=== PATIENT | male | born 1940 | race Caucasian/White ===

== ENCOUNTER 2017-01-22 18:27 | Inpatient (IN) ==
[~2017-01-22 18:27] MED LIST: *HR* Etomidate 20 MG/10 ML AMPUL IVP ONE; *HR* Rocuronium Bromide 100 MG/10 ML VIAL IVC ONE
[2017-01-22] MEDS ORDERED: 0.9 % Sodium Chloride 1,000 ML ONE ×2 (18:41→19:38)
--- NOTE | 2017-01-22 18:46 | Emergency Department Note ---
Disposition Clinical Impression: Respiratory distress Disposition: Still a Patient Forms: ED Satisfaction Letter General Adult HPI - General Chief complaint: ED Shortness of Breath/Dyspnea Stated complaint: Resp distress Time Seen by Provider: 01/22/17 18:38 Source: EMS Limitations: no limitations - History of Present Illness Pain Scale: 0 Past Medical History - Past Medical History Medical history: Reports: non-contributory Psychiatric history: Reports: no psych history - Social History Smoking Status: Unknown if ever smoked Alcohol use: Reports: unknown Drug use: Reports: unknown Physical Exam - General Limitations: no limitations General appearance: lethargic Course Vital Signs Temperature 98.7 F 01/22/17 18:29 Pulse Rate 169 01/22/17 18:29 Respiratory Rate 24 01/22/17 18:29 Blood Pressure 151/90 01/22/17 18:29 O2 Sat by Pulse Oximetry 81 01/22/17 18:29 Temperature 98.7 F 01/22/17 18:29 Pulse Rate 160 01/22/17 18:37 Respiratory Rate 14 01/22/17 18:37 Blood Pressure 104/82 01/22/17 18:37 O2 Sat by Pulse Oximetry 93 01/22/17 18:37 Oxygen Delivery Oxygen Delivery Ventilator Procedures - Intubation Time out performed: No sedative: Etomidate Mg Given: 20 paralytic: Rocuronium Mg Given: 100 Laryngoscope: Chris ET Tube Size: 7.5 ET Tube Uncuffed: No Tube Secured Depth (cm): 22 Tube Secured Location: lips Tube Placement Confirmation: visualized tube passing through cords, equal breath sounds bilaterally, no breath sounds over epigastrium, confirmation by capnometry Patient Tolerated Procedure: well Intubation Complications: other (Patient did have food overlying the epiglottis that was removed with suction.)
[2017-01-22] MEDS ORDERED: Propofol 500 MG/50 ML INFUS..BTL ONE ×2 (18:49→20:38)
[2017-01-22] MEDS ORDERED: Vancomycin 1,000 MG VIAL IVPB ONE (18:57)
[2017-01-22] MEDS ORDERED: Piperacillin/Tazobactam 3.375 GM in D5% in Water (Mini-Bag+) 100 ML IVPB ONE (18:57)
[2017-01-22 19:01] LABS: ABG Base Excess 1.3 mEq/L (-2.0 to 3.0); ABG HCO3 31.4 mEQ/L (21-27); ABG Oxygen Saturation 99 % (95-98); ABG PH 7.23 pH Units (7.32-7.45); ABG PO2 168 mmHg (85-104); ABG TCO2 33.7 mEq/L (20-26); Blood Gas FiO2 100 %
--- NOTE | 2017-01-22 19:01 | Emergency Department Note ---
Disposition Clinical Impression: Respiratory distress Aspiration pneumonia Qualifiers: Aspiration pneumonia type: due to regurgitated food Laterality: bilateral Lung location: unspecified part of lung Qualified Code(s): J69.0 - Pneumonitis due to inhalation of food and vomit Disposition: Admitted As Inpatient Condition: Critical Forms: ED Satisfaction Letter Time of Disposition: 19:48 SOB HPI - General Chief Complaint: ED Shortness of Breath/Dyspnea Stated Complaint: Resp distress Time Seen by Provider: 01/22/17 18:38 Source: EMS Limitations: no limitations Nursing Notes Reviewed: Yes Vital Signs Reviewed: Yes - History of Present Illness 76-year-old who was eating and apparently choked and became short of breath. [facility] were [facility]ging him. His pulse ox was in the 70s on arrival with the respiratory distressaccess had been obtained. On arrival of the patient was 2 large bore IVs were started patient was given etomidate and rocuronium was intubated please see the intubation note. There was a large piece of chicken removed from the upper airway. The tube was passed without difficulty with good CO2 detector change good breath sounds bilaterally pulse ox up into the high 90s. 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 Context: choking/aspiration, other (Aspiration) Severity: severe Consistency/Duration: constant Improves with: nothing Worsens with: nothing Treatment prior to arrival: oxygen Cough Frequency: Continuous - Related Data Allergies Allergy/AdvReac Type Severity Reaction Status Date / Time No Known Allergies Allergy Verified 01/22/17 18:54 Limitations: ROS unobtainable due to patients medical condition Past Medical History - Past Medical History Medical history: Reports: non-contributory Psychiatric history: Reports: no psych history - Social History Smoking Status: Unknown if ever smoked Alcohol use: Reports: unknown Drug use: Reports: unknown Physical Exam - General Limitations: no limitations, altered mental status General appearance: lethargic, other (In severe respiratory distress on arrival. ) - Head Head exam: atraumatic, normocephalic, normal inspection - Eye Eye exam: Present: normal appearance, PERRL, EOMI - ENT ENT exam: normal exam, normal oropharynx, mucous membranes moist - Neck Neck exam: Present: normal inspection, full ROM, trachea midline - Chest Chest inspection: Present: normal inspection, symmetric chest wall rise - Respiratory Respiratory exam: Present: normal lung sounds bilaterally - Cardiovascular Cardiovascular exam: Present: tachycardia, irregular rhythm, normal heart sounds - Abdominal Exam Abdominal exam: Present: soft, Non-Tender. Absent: tenderness, distention, guarding, rebound, rigidity - Extremities Exam Extremities exam: Present: normal inspection, full ROM. Absent: tenderness, pedal edema - Expanded Lower Extremity Exam Neurovascular/Tendon exam: Absent: motor deficit, sensory deficit, tendon deficit Gait: not tested/not observed - Back Exam Back exam: Present: normal inspection - Neurological Exam Neurological exam: Present: other (Unresponsive) Course - Reevaluation(s) Reevaluation #1: 76-year-old who was at the [facility] eating and apparently aspirated. He was being bagged on arrival and that intubation in the piece of chicken in his vocal cords. That was removed he was intubated. Chest x-ray does show infiltrates. Patient was given Zosyn and vancomycin. Patient was given 3 L of normal saline. Time: 19:49 - Consultations Consultation #1: Discussed with Penny Crisostomo nurse practitioner admit. Time: 19:49 Vital Signs Temperature 98.7 F 01/22/17 18:29 Pulse Rate 169 01/22/17 18:29 Respiratory Rate 24 01/22/17 18:29 Blood Pressure 151/90 01/22/17 18:29 O2 Sat by Pulse Oximetry 81 01/22/17 18:29 Temperature 98.7 F 01/22/17 18:29 Pulse Rate 129 01/22/17 19:23 Respiratory Rate 12 01/22/17 19:23 Blood Pressure 103/70 01/22/17 19:23 O2 Sat by Pulse Oximetry 97 01/22/17 19:23 Oxygen Delivery Oxygen Delivery Ventilator Shortness of Breath/Dyspnea - Lab Data Lab results reviewed: Yes I reviewed the patient's lab results. Result diagrams: 01/22/17 18:48 01/22/17 19:15 Lab Results 01/22/17 01/22/17 01/22/17 Range/Units 18:48 18:48 18:48 WBC 14.4 H (4.3-11.1) K/mcL RBC 5.33 (4.19-5.50) M/mcL Hgb 15.4 (12.9-16.9) g/dL Hct 50.4 H (37.5-50.1) % MCV 94.6 (83.0-100.0) fL MCH 28.9 (28.0-33.3) pg MCHC 30.6 L (31.6-35.5) g/dL RDW 15.4 H (11.5-14.5) % Plt Count 298 (140-400) K/mcL MPV 10.9 (9.4-12.4) fL Immature Gran % 0.8 (0-4) % Seg Neutrophils % 60.2 % Lymphocytes % 31.7 % Monocytes % 5.5 % Eosinophils % 1.5 % Basophils % 0.3 % Neutrophils # 8.7 (1.6-8.9) K/mcL Lymphocytes # 4.6 (0.6-4.6) K/mcL Monocytes # 0.8 (0.0-1.3) K/mcL Eosinophils # 0.2 (0.0-0.6) K/mcL Basophils # 0.1 (0.0-0.2) K/mcL PT 12.6 H (9.4-12.1) Seconds INR 1.2 APTT 36.1 H (26.0-36.0) Seconds ABG pH (7.32-7.45) pH Units ABG pCO2 (35-45) mmHg ABG pO2 (85-104) mmHg ABG HCO3 (21-27) mEQ/L ABG Total CO2 (20-26) mEq/L ABG O2 Saturation (95-98) % ABG Base Excess (-2.0 to 3.0) mEq/L Blood Gas Modality Inspired O2 % Sodium (136-145) mEq/L Potassium (3.5-4.5) mEq/L Chloride (98-109) mEq/L Carbon Dioxide (19-29) mEq/L BUN (8-26) mg/dL Creatinine (0.72-1.25) mg/dL Est GFR ( Amer) (> 60) Est GFR (Non-Af Amer) (> 60) BUN/Creatinine Ratio (6-26) Glucose (70-99) mg/dL Calculated Osmolality (280-300) Lactic Acid (0.5-2.2) mmol/L Calcium (8.6-10.8) mg/dL Troponin I 0.03 (0-0.03) ng/mL B-Natriuretic Peptide (0-100) pg/mL 01/22/17 01/22/17 01/22/17 Range/Units 18:48 18:51 19:15 WBC (4.3-11.1) K/mcL RBC (4.19-5.50) M/mcL Hgb (12.9-16.9) g/dL Hct (37.5-50.1) % MCV (83.0-100.0) fL MCH (28.0-33.3) pg MCHC (31.6-35.5) g/dL RDW (11.5-14.5) % Plt Count (140-400) K/mcL MPV (9.4-12.4) fL Immature Gran % (0-4) % Seg Neutrophils % % Lymphocytes % % Monocytes % % Eosinophils % % Basophils % % Neutrophils # (1.6-8.9) K/mcL Lymphocytes # (0.6-4.6) K/mcL Monocytes # (0.0-1.3) K/mcL Eosinophils # (0.0-0.6) K/mcL Basophils # (0.0-0.2) K/mcL PT (9.4-12.1) Seconds INR APTT (26.0-36.0) Seconds ABG pH 7.23 L (7.32-7.45) pH Units ABG pCO2 75 H* (35-45) mmHg ABG pO2 168 H (85-104) mmHg ABG HCO3 31.4 H (21-27) mEQ/L ABG Total CO2 33.7 H (20-26) mEq/L ABG O2 Saturation 99 H (95-98) % ABG Base Excess 1.3 (-2.0 to 3.0) mEq/L Blood Gas Modality VCT Inspired O2 100 % Sodium 146 H (136-145) mEq/L Potassium 4.4 (3.5-4.5) mEq/L Chloride 107 (98-109) mEq/L Carbon Dioxide 25 (19-29) mEq/L BUN 19 (8-26) mg/dL Creatinine 1.00 (0.72-1.25) mg/dL Est GFR ( Amer) > 60 (> 60) Est GFR (Non-Af Amer) > 60 (> 60) BUN/Creatinine Ratio 19 (6-26) Glucose 184 H (70-99) mg/dL Calculated Osmolality 309 H (280-300) Lactic Acid (0.5-2.2) mmol/L Calcium 8.8 (8.6-10.8) mg/dL Troponin I (0-0.03) ng/mL B-Natriuretic Peptide 124 H (0-100) pg/mL 01/22/17 Range/Units 19:15 WBC (4.3-11.1) K/mcL RBC (4.19-5.50) M/mcL Hgb (12.9-16.9) g/dL Hct (37.5-50.1) % MCV (83.0-100.0) fL MCH (28.0-33.3) pg MCHC (31.6-35.5) g/dL RDW (11.5-14.5) % Plt Count (140-400) K/mcL MPV (9.4-12.4) fL Immature Gran % (0-4) % Seg Neutrophils % % Lymphocytes % % Monocytes % % Eosinophils % % Basophils % % Neutrophils # (1.6-8.9) K/mcL Lymphocytes # (0.6-4.6) K/mcL Monocytes # (0.0-1.3) K/mcL Eosinophils # (0.0-0.6) K/mcL Basophils # (0.0-0.2) K/mcL PT (9.4-12.1) Seconds INR APTT (26.0-36.0) Seconds ABG pH (7.32-7.45) pH Units ABG pCO2 (35-45) mmHg ABG pO2 (85-104) mmHg ABG HCO3 (21-27) mEQ/L ABG Total CO2 (20-26) mEq/L ABG O2 Saturation (95-98) % ABG Base Excess (-2.0 to 3.0) mEq/L Blood Gas Modality Inspired O2 % Sodium (136-145) mEq/L Potassium (3.5-4.5) mEq/L Chloride (98-109) mEq/L Carbon Dioxide (19-29) mEq/L BUN (8-26) mg/dL Creatinine (0.72-1.25) mg/dL Est GFR ( Amer) (> 60) Est GFR (Non-Af Amer) (> 60) BUN/Creatinine Ratio (6-26) Glucose (70-99) mg/dL Calculated Osmolality (280-300) Lactic Acid 2.4 H (0.5-2.2) mmol/L Calcium (8.6-10.8) mg/dL Troponin I (0-0.03) ng/mL B-Natriuretic Peptide (0-100) pg/mL - Radiology Data Radiology results reviewed: Yes I reviewed the patient's radiology results. Chest X-Ray 01/22/17 18:44 IMPRESSION: Satisfactory position of endotracheal tube. Right perihilar and left basilar infiltrate. D/ / Reji Moralez MD / Reji Moralez MD Interpreting Provider: Reji Moralez MD - EKG Data EKG attestation: Yes I reviewed and interpreted this EKG. Rate: Reports: tachycardia Rhythm: Reports: A.Fib Interpretation: Reports: other (A. fib RVR) Critical Care Time Critical Care Time: Yes Total Critical Care Time: 90 Attestation: The high probability of a clinically significant, sudden or life threatening deterioration of the [cardiovascular, respiratory] system(s) required my full and direct attention, intervention and personal management. The aggregate critical care time was [90] minutes. This time is in addition to time spent performing reported procedures but includes the following: [x] Data Review and interpretation [x] Patient assessment and monitoring of vital signs [x] Documentation [x] Medication orders and management
[2017-01-22 19:03] LABS: ABG PCO2 75 mmHg (35-45)
[2017-01-22 19:06] LABS: Basophils # 0.1 K/mcL (0.0-0.2); Basophils % 0.3 %; Eosinophils # 0.2 K/mcL (0.0-0.6); Eosinophils % 1.5 %; Hematocrit 50.4 % (37.5-50.1); Hemoglobin 15.4 g/dL (12.9-16.9); Immature Granulocytes % 0.8 % (0-4); Lymphocytes # 4.6 K/mcL (0.6-4.6); Lymphocytes % 31.7 %; Mean Corpuscular HGB Conc 30.6 g/dL (31.6-35.5); Mean Corpuscular Hemoglobin 28.9 pg (28.0-33.3); Mean Corpuscular Volume 94.6 fL (83.0-100.0); Mean Platelet Volume 10.9 fL (9.4-12.4); Monocytes # 0.8 K/mcL (0.0-1.3); Monocytes % 5.5 %; Neutrophils # 8.7 K/mcL (1.6-8.9); Platelet Count 298 K/mcL (140-400); Red Blood Count 5.33 M/mcL (4.19-5.50); Red Cell Distribution Width 15.4 % (11.5-14.5); Segmented Neutrophils % 60.2 %
[2017-01-22 19:15] LABS: INR 1.2; Prothrombin Time 12.6 Seconds (9.4-12.1)
[2017-01-22 19:18] LABS: Activated Partial Thrombo Time 36.1 Seconds (26.0-36.0)
[2017-01-22 19:35] LABS: BUN/Creatinine Ratio 19 (6-26); Blood Urea Nitrogen 19 mg/dL (8-26); Calcium 8.8 mg/dL (8.6-10.8); Carbon Dioxide 25 mEq/L (19-29); Chloride 107 mEq/L (98-109); Glucose 184 mg/dL (70-99); Osmolality,Calculated 309 (280-300); Potassium 4.4 mEq/L (3.5-4.5); Sodium 146 mEq/L (136-145); eGFR For African Americans > 60 (> 60); eGFR For Non-African Americans > 60 (> 60)
[2017-01-22] MEDS ORDERED: 0.9 % Sodium Chloride 1,000 ML IVC ONE ×2 (19:39→20:01)
[2017-01-22] MEDS ORDERED: Naloxone 0.4 MG/ML INJ IVP PRN (22:10)
[2017-01-22] MEDS ORDERED: Lacri-Lube 3.5 GM TUBE BOTH EYES PRN (22:14)
[2017-01-22] MEDS ORDERED: Nitroglycerin 0.4 MG TAB.SUBL SL PRN (22:18)
--- NOTE | 2017-01-22 22:36 | Internal Med History&Physical ---
Date of Encounter: 01/22/17 Time of Encounter: 22:22 Assessment and Plan (1) Acute respiratory failure Current visit: Yes Status: Acute Likely secondary to aspiration of food / pneumonia. Patient required intubation and mechanical ventilation. Pulmonary consultation for further advice. Qualifiers: Respiratory failure complication: hypoxia Qualified Code(s): J96.01 - Acute respiratory failure with hypoxia (2) Atrial fibrillation with RVR Current visit: Yes Status: Acute Patient had atrial fibrillation with RVR in the ER. Possibly due to stress response from acute respiratory failure. RVR is improved now. (3) Aspiration into lower respiratory tract Current visit: Yes Status: Acute Patient apparently aspirated food bolus/chicken, that caused acute respiratory distress. food was suctioned out by the resp therapist after intubation Qualifiers: Encounter type: initial encounter Qualified Code(s): T17.800A - Unspecified foreign body in other parts of respiratory tract causing asphyxiation, initial encounter (4) Pneumonia Current visit: Yes Status: Acute Possible community-acquired pneumonia. It is too early because of aspiration pneumonia. However will treat with unasyn, to cover for anerobes. Request for pulmonary consultation, for further advice and titration of antibiotics Qualifiers: Pneumonia type: due to unspecified organism Laterality: left Lung location: lower lobe of lung Qualified Code(s): J18.1 - Lobar pneumonia, unspecified organism (5) Sepsis Current visit: Yes Status: Acute Possibly due to pneumonia. Treat with IV fluids and antibiotics Qualifiers: Sepsis type: sepsis due to unspecified organism Qualified Code(s): A41.9 - Sepsis, unspecified organism (6) Chronic anticoagulation Current visit: Yes Status: Acute Pt is on apixaban for A fib - continue. No need for other DVT prophylaxis Internal Medicine - H&P: HPI Chief complaint: Respiratory distress Admitted From: Emergency Dept Plans for Post Hospital Care: Transfer [facility] History of present illness: Mr. Pastrana is a 76 year old male With past medical history significant for COPD, CAD, CHF, CKD stage 3, atrial fibrillation/flutter on chronic anti-coagulation with apixaban, hypertension, abdominal aortic aneurysm, depression, schizoaffective disorder, hypercholesterolemia, multiple pulmonary nodules, prostate cancer. He was a resident at the [facility] and per the records from the facility - patient apparently vomited and appeared to choke on his vomitus and he went into respiratory failure. His initial pulse ox was recorded to be 50% on room air and improved to 74% on the 100% nonrebreather mask. He was in respiratory distress with tachypnea and tachycardia. He was transferred to emergency department at [facility], where he was intubated. During intubation, piece of chicken was noted on his vocal cords, which was removed. Chest x-ray reported right perihilar and left basilar infiltrate. Patient was given Zosyn and vancomycin and 3 L of normal saline. He is admitted to the ICU for further management. Review of systems, past medical history, social history, family history could not be reviewed with the patient as he is intubated at this time. Pt is critically ill and critical care time in organizing care in the ICU is about 60 minutes. Past Med Surg Social Fam HX - Past Medical History Medical history: non-contributory Psychiatric history: no psych history - Social History Smoking Status: Unknown if ever smoked Alcohol use: unknown Drug use: unknown - Family History Mother History Unknown: Yes Father History Unknown: Yes Internal Medicine - H&P: Meds Acetaminophen [Acetaminophen ER] 650 mg PO TID 01/22/17 [History] Apixaban [Eliquis] 5 mg PO BID 01/22/17 [History] Aspirin Enteric Coated [Aspirin EC] 81 mg PO DAILY 01/22/17 [History] Bisacodyl [Dulcolax] 10 mg RC DAILY PRN 01/22/17 [History] Budesonide/Formoterol 80/4.5 [Symbicort 80/4.5] 2 puff IH BIDR 01/22/17 [ History] Divalproex Sodium [Depakote] 250 mg PO DAILY 01/22/17 [History] Docusate Sodium [Colace] 100 mg PO BID 01/22/17 [History] Finasteride [Proscar] 5 mg PO DAILY 01/22/17 [History] Furosemide [Lasix] 40 mg PO BID 01/22/17 [History] Guaifenesin [Tab Tussin] 400 mg PO TID PRN 01/22/17 [History] Ipratropium/Albuterol Neb [Duoneb] 3 ml IH Q4HR 01/22/17 [History] Lisinopril 2.5 mg PO HS 01/22/17 [History] Metoprolol Succinate 150 mg PO DAILY 01/22/17 [History] Mineral Oil/Petrolatum,White [Eucerin Creme] 1 appl TP BID PRN 01/22/17 [History ] Multivitamin with Minerals [One-A-Day Maximum Formula] 1 tab PO DAILY 01/22/17 [ History] Nitroglycerin [Nitrostat] 0.4 mg SL AD PRN 01/22/17 [History] Nystatin POWDER [Nystop] 1 appl TP Q4H PRN 01/22/17 [History] OLANZapine [Zyprexa] 5 mg PO HS 01/22/17 [History] Ondansetron HCl [Zofran] 4 mg PO Q6H PRN 01/22/17 [History] Polyethylene Glycol 3350 [Smoothlax] 17 gm PO DAILY 01/22/17 [History] Polyvinyl Alcohol [Artificial Tears] 2 drop OP QID PRN 01/22/17 [History] Potassium Chloride [K-Tab ER] 20 meq PO DAILY MDD WITH LASIX 01/22/17 [History] Ranitidine HCl [Acid Speech And Drama Teacher] 150 mg PO BID 01/22/17 [History] Sennosides [Senna] 17.2 mg PO DAILY 01/22/17 [History] TraZODone 25 mg PO HS 01/22/17 [History] Ursodiol 300 mg PO BID 01/22/17 [History] Allergies No Known Allergies Allergy (Verified 01/22/17 18:54) ROS unobtainable: due to endotracheal tube - Constitutional Vitals: Temp Pulse Resp BP Pulse Ox 99.1 F 87 12 88/66 99 01/22/17 21:21 01/22/17 22:00 01/22/17 22:00 01/22/17 22:00 01/22/17 22:00 Exam: General: Sedated and intubated. Obese HEENT: Endotracheal tube in place Neck: No obvious neck swellings Lungs: Bilateral air entry present. Clear to auscultation Cardiac: Irregular rhythm. No significant murmurs Abdomen: Obese, non tender. Bowel sounds present Genitourinary: Mosley catheter present Neurological: Sedated and intubated. Psych: Sedated and intubated. Extremities: leg edema present Skin: No generalized rash Internal Med - H&P Results - Labs CBC & Chem 7: 01/24/17 03:09 01/24/17 03:09 - EKG Data -: EKG Interpreted by Myself - EKG Data EKG comments: Atrial fibrillation with RVR, heart rate of 160/m, RBBB 01/23/17 00:34 - Impressions ITS Impressions Chest X-Ray 01/22/17 18:44 IMPRESSION: Satisfactory position of endotracheal tube. Right perihilar and left basilar infiltrate. D/ / Reji Moralez MD / Reji Moralez MD Interpreting Provider: Reji Moralez MD
[2017-01-22 22:51] LABS: ABG Base Excess 1.3 mEq/L (-2.0 to 3.0); ABG HCO3 32.5 mEQ/L (21-27); ABG Oxygen Saturation 100 % (95-98); ABG PO2 202 mmHg (85-104); ABG TCO2 35.2 mEq/L (20-26)
[2017-01-22 22:54] LABS: Blood Gas FiO2 100 %
[2017-01-22 22:55] LABS: ABG PCO2 87 mmHg (35-45); ABG PH 7.18 pH Units (7.32-7.45)
[2017-01-22] MEDS: Ampicillin/Sulbactam 3,000 MG in 0.9 % Sodium Chloride Mini Bag 100 ML IVPB SCH (23:11)
[2017-01-22] MEDS: Lacri-Lube 3.5 GM TUBE BOTH EYES SCH (23:13)
[2017-01-23] MEDS: OLANZapine 5 MG TAB.RAPDIS PO SCH ×2 (00:38→19:48)
[2017-01-23 00:58] LABS: Hematocrit 45.3 % (37.5-50.1); Immature Granulocytes % 0.4 % (0-4); Lymphocytes % 8.9 %; Mean Corpuscular HGB Conc 29.8 g/dL (31.6-35.5); Mean Corpuscular Volume 97.4 fL (83.0-100.0); Mean Platelet Volume 11.3 fL (9.4-12.4); Platelet Count 281 K/mcL (140-400); Red Blood Count 4.65 M/mcL (4.19-5.50); Red Cell Distribution Width 15.6 % (11.5-14.5); Segmented Neutrophils % 87.2 %
[2017-01-23 00:59] LABS: Basophils % 0.1 %; Eosinophils # 0.1 K/mcL (0.0-0.6); Eosinophils % 0.5 %; Lymphocytes # 1.5 K/mcL (0.6-4.6); Monocytes # 0.5 K/mcL (0.0-1.3); Monocytes % 2.9 %; Neutrophils # 14.3 K/mcL (1.6-8.9)
[2017-01-23 01:00] LABS: Hemoglobin 13.5 g/dL (12.9-16.9)
[2017-01-23 01:12] LABS: Alanine Aminotransferase 13 Units/L (0-55); Albumin/Globulin Ratio 0.8 (1.1-2.2); Alkaline Phosphatase 67 Units/L (38-126); Aspartate Amino Transferase 20 Units/L (5-34); BUN/Creatinine Ratio 15 (6-26); Bilirubin,Total 0.4 mg/dL (0.2-1.2); Blood Urea Nitrogen 17 mg/dL (8-26); Calcium 8.5 mg/dL (8.6-10.8); Carbon Dioxide 28 mEq/L (19-29); Chloride 107 mEq/L (98-109); Globulin 3.8 g/dL (2.4-3.5); Glucose 120 mg/dL (70-99); Osmolality,Calculated 303 (280-300); Potassium 5.3 mEq/L (3.5-4.5); Sodium 145 mEq/L (136-145); Total Protein 6.8 g/dL (6.0-8.3); eGFR For African Americans > 60 (> 60); eGFR For Non-African Americans > 60 (> 60)
[2017-01-23 01:19] LABS: ABG HCO3 29.7 mEQ/L (21-27); ABG Oxygen Saturation 95 % (95-98); ABG PH 7.23 pH Units (7.32-7.45); ABG PO2 92 mmHg (85-104); ABG TCO2 31.9 mEq/L (20-26); Blood Gas FiO2 60 %
[2017-01-23 01:21] LABS: ABG PCO2 71 mmHg (35-45)
[2017-01-23] MEDS: 0.9 % Sodium Chloride 1,000 ML IVC SCH ×3 (02:26→19:49)
[2017-01-23] MEDS ORDERED: *HR* Metoprolol 5 MG/5 ML VIAL IVP ONE (03:33)
[2017-01-23] MEDS: Lacri-Lube 3.5 GM TUBE BOTH EYES SCH ×5 (03:53→19:50)
[2017-01-23 04:50] LABS: ABG Base Excess 1.7 mEq/L (-2.0 to 3.0); ABG HCO3 27.7 mEQ/L (21-27); ABG Oxygen Saturation 97 % (95-98); ABG PCO2 48 mmHg (35-45); ABG PH 7.37 pH Units (7.32-7.45); ABG PO2 93 mmHg (85-104); ABG TCO2 29.2 mEq/L (20-26)
[2017-01-23 04:51] LABS: Blood Gas FiO2 40 %
[2017-01-23] MEDS: Ampicillin/Sulbactam 3,000 MG in 0.9 % Sodium Chloride Mini Bag 100 ML IVPB SCH ×3 (05:49→19:09)
[2017-01-23] MEDS: Pantoprazole 40 MG VIAL IVP SCH (05:49)
--- NOTE | 2017-01-23 07:13 | Pulmonology Consult Note ---
<Supriya Coy M - Last Filed: 01/23/17 11:19> Date of Encounter: 01/23/17 Medications and Allergies Acetaminophen [Acetaminophen ER] 650 mg PO TID 01/22/17 [History] Apixaban [Eliquis] 5 mg PO BID 01/22/17 [History] Aspirin Enteric Coated [Aspirin EC] 81 mg PO DAILY 01/22/17 [History] Bisacodyl [Dulcolax] 10 mg RC DAILY PRN 01/22/17 [History] Budesonide/Formoterol 80/4.5 [Symbicort 80/4.5] 2 puff IH BIDR 01/22/17 [ History] Divalproex Sodium [Depakote] 250 mg PO DAILY 01/22/17 [History] Docusate Sodium [Colace] 100 mg PO BID 01/22/17 [History] Finasteride [Proscar] 5 mg PO DAILY 01/22/17 [History] Furosemide [Lasix] 40 mg PO BID 01/22/17 [History] Guaifenesin [Tab Tussin] 400 mg PO TID PRN 01/22/17 [History] Ipratropium/Albuterol Neb [Duoneb] 3 ml IH Q4HR 01/22/17 [History] Lisinopril 2.5 mg PO HS 01/22/17 [History] Metoprolol Succinate 150 mg PO DAILY 01/22/17 [History] Mineral Oil/Petrolatum,White [Eucerin Creme] 1 appl TP BID PRN 01/22/17 [History ] Multivitamin with Minerals [One-A-Day Maximum Formula] 1 tab PO DAILY 01/22/17 [ History] Nitroglycerin [Nitrostat] 0.4 mg SL AD PRN 01/22/17 [History] Nystatin POWDER [Nystop] 1 appl TP Q4H PRN 01/22/17 [History] OLANZapine [Zyprexa] 5 mg PO HS 01/22/17 [History] Ondansetron HCl [Zofran] 4 mg PO Q6H PRN 01/22/17 [History] Polyethylene Glycol 3350 [Smoothlax] 17 gm PO DAILY 01/22/17 [History] Polyvinyl Alcohol [Artificial Tears] 2 drop OP QID PRN 01/22/17 [History] Potassium Chloride [K-Tab ER] 20 meq PO DAILY MDD WITH LASIX 01/22/17 [History] Ranitidine HCl [Acid Service Crew Leader] 150 mg PO BID 01/22/17 [History] Sennosides [Senna] 17.2 mg PO DAILY 01/22/17 [History] TraZODone 25 mg PO HS 01/22/17 [History] Ursodiol 300 mg PO BID 01/22/17 [History] Allergies No Known Allergies Allergy (Verified 01/22/17 18:54) All Systems: A 10-system review of systems was performed and is negative for pertinent findings except as documented above in the HPI. Physical Examination Vital Signs: Vital Signs, Last 4 Hours Temp Pulse Resp BP Pulse Ox 01/23/17 09:30 114 16 87/61 99 01/23/17 08:30 116 16 83/66 96 01/23/17 08:13 99.0 F 01/23/17 08:07 15 91/60 96 01/23/17 07:45 111 16 107/64 96 Ventilator Settings Ventilator Settings: Ventilator Settings, Last 8 Hours Ventilator Mode VC+ Ventilator Mode VC+ Ventilator Mode VC+ Ventilator Mode VC+ Ventilator Mode VC+ Ventilator Tidal Volume 500 Setting Ventilator Tidal Volume 500 Setting Ventilator Tidal Volume 500 Setting Ventilator Tidal Volume 500 Setting Ventilator Tidal Volume 500 Setting Ventilator Respiratory Rate 16 Setting Ventilator Respiratory Rate 16 Setting Ventilator Respiratory Rate 16 Setting Ventilator Respiratory Rate 16 Setting Ventilator Respiratory Rate 16 Setting Actual Respiratory Rate 16 Actual Respiratory Rate 16 Actual Respiratory Rate 16 Actual Respiratory Rate 17 Positive End Expiratory 5 Pressure Positive End Expiratory 5 Pressure Positive End Expiratory 5 Pressure Positive End Expiratory 5 Pressure Positive End Expiratory 5 Pressure Peak Inspiratory Airway 37 Pressure Peak Inspiratory Airway 39 Pressure Peak Inspiratory Airway 34 Pressure Peak Inspiratory Airway 38 Pressure Peak Inspiratory Airway 37 Pressure Peak Inspiratory Airway 35 Pressure Results - Laboratory Findings CBC and BMP: 01/23/17 00:50 01/23/17 00:50 ABG ABG pH 7.37 pH Units (7.32-7.45) D 01/23/17 04:35 ABG pCO2 48 mmHg (35-45) H D 01/23/17 04:35 ABG pO2 93 mmHg (85-104) 01/23/17 04:35 ABG O2 Saturation 97 % (95-98) 01/23/17 04:35 PT/INR, D-dimer PT 12.6 Seconds (9.4-12.1) H 01/22/17 18:48 Abnormal lab findings: Abnormal lab results WBC 16.4 K/mcL (4.3-11.1) H 01/23/17 00:50 MCHC 29.8 g/dL (31.6-35.5) L 01/23/17 00:50 RDW 15.6 % (11.5-14.5) H 01/23/17 00:50 Neutrophils # 14.3 K/mcL (1.6-8.9) H 01/23/17 00:50 PT 12.6 Seconds (9.4-12.1) H 01/22/17 18:48 APTT 36.1 Seconds (26.0-36.0) H 01/22/17 18:48 ABG pCO2 48 mmHg (35-45) H D 01/23/17 04:35 ABG HCO3 27.7 mEQ/L (21-27) H 01/23/17 04:35 ABG Total CO2 29.2 mEq/L (20-26) H 01/23/17 04:35 Potassium 5.3 mEq/L (3.5-4.5) H 01/23/17 00:50 Glucose 120 mg/dL (70-99) H 01/23/17 00:50 POC Glucose 147 (58-89) H 01/22/17 21:20 Calculated Osmolality 303 (280-300) H 01/23/17 00:50 Lactic Acid 2.4 mmol/L (0.5-2.2) H 01/23/17 00:50 Calcium 8.5 mg/dL (8.6-10.8) L 01/23/17 00:50 B-Natriuretic Peptide 124 pg/mL (0-100) H 01/22/17 18:48 Albumin 3.0 g/dL (3.5-5.0) L 01/23/17 00:50 Globulin 3.8 g/dL (2.4-3.5) H 01/23/17 00:50 Albumin/Globulin Ratio 0.8 (1.1-2.2) L 01/23/17 00:50 - Microbiology Findings Microbiology Findings: Microbiology, Last 48 Hours 01/23/17 09:44 Gram Stain - Final Left Upper Lobe Lung 01/22/17 23:00 Sputum Culture - Preliminary Sputum - Clinical Findings Intake & Output: Intake & Output 01/22/17 01/23/17 01/23/17 23:59 07:59 15:59 Intake Total 1050 / 2150 1300 / 1300 Output Total 450 / 450 150 / 150 75 / 75 Balance 600 / 1700 1150 / 1150 -75 / -75 Consult Discharge Plan - Plan [facility]errals: [facility]Primary Care Provider[facility] - - Attending Attestation I examined this patient and my medical decision-making was reviewed with the FURNACE FITTER/PA/Advanced Practice Nurse/Resident Physician. I agree with the documented findings, disposition and treatment plan as described except to the extent set forth below. Patient seen and examined. Labs, radiology, chart personally reviewed. Agree with resident's history and physical, assessment, plan with following comments: DIAGNOSTIC SALES SPECIALIST: Patient sedated and does not follows commands, Pulmonary: Acceptable oxygenation and ventilation. Changed vent to VC+ and patient kept intubated for now with his history of aspiration and also to do bronchoscopy, which was done and during procedure an abnormal endocbronchial lesion was found , which was biopsied. I'm hoping patient can do SBT tomorrow, especially with his code status, which is not clear at this time since RN reported his code status is DNR from [facility], however we need to clarify this more. Called son and he stated to do whatever needs to be done, patient is full code for now. Cardiovascular: stable GI: Nutrition per dietary and GI prophylaxis per routine Heme: DVT prophylaxis per routine ID: Continue antibiotics and plan to de-escalation Renal; urine out put and renal funtion reviewed Endorcine: blood glucose is monitored Lines: all lines checked and no evidence of infections Skin: skin care to prevent pressure ulcers per nursing routine care I spent 35 min of Critical Care time with this patient. It involved decision making of high complexity to assess, manipulate, and support vital organ system failure and/or to prevent further life threatening deterioration of the patient' s condition. The time involved in the performance of separately reportable procedures was not counted toward critical care time. <Scott Peñaloza - Last Filed: 01/23/17 15:46> Date of Encounter: 01/23/17 Time of Encounter: 07:13 Assessment and Plan (1) Acute respiratory failure Current Visit: Yes Status: Acute This is secondary to aspiration of food bolus into his airway, bronchoscopy was done this morning and it showed copies, mucopurulent secretions were found throughout the tracheobronchial tree, they were partially obstructing the airway , a bronchoalveolar lavage was performed, patient will remain on mechanical ventilation overnight and hopefully we can extubate him in the morning. Qualifiers: Qualified Code(s): J96.01 - Acute respiratory failure with hypoxia; J96.02 - Acute respiratory failure with hypercapnia (2) Aspiration of food Current Visit: Yes Status: Acute Bronchoscopy was done this morning and it showed copies, mucopurulent secretions were found throughout the tracheobronchial tree, they were partially obstructing the airway, a bronchoalveolar lavage was performed, his leukocytosis is likely reactive from aspiration and acute respiratory failure, currently patient is on Unasyn IV, unlikely it is pneumonia, sputum culture is negative, blood cultures are pending, patient will remain on mechanical ventilation overnight. Qualifiers: Qualified Code(s): T17.890A - Other foreign object in other parts of respiratory tract causing asphyxiation, initial encounter (3) Mass of upper lobe of left lung Current Visit: Yes Status: Acute Bronchoscopy showed a medium-sized nearly obstructing, greater than 90% obstructed, fungating, congested, edematous, erythematous, vascular and raised lesion found which is about 5 cm from the bifurcation of the aguila in the left upper lobe. Endobronchial biopsies were performed of left upper lobe use and sent for histopathology examination. (4) Atrial fibrillation Current Visit: Yes Status: Acute Currently heart rate has been stable, will continue his home medication of metoprolol XL and Eliquis. Qualifiers: Qualified Code(s): I48.91 - Unspecified atrial fibrillation (5) COPD (chronic obstructive pulmonary disease) Current Visit: Yes Status: Acute Not in acute exacerbation, will continue oxygen support through mechanical ventilation and bronchodilator treatment as needed. Qualifiers: Qualified Code(s): J44.9 - Chronic obstructive pulmonary disease, unspecified (6) DVT prophylaxis Current Visit: Yes Status: Acute Eliquis. History of Present Illness Consult date: 01/23/17 Requesting physician: Akhil Tam Reason for consult: other (Aspiration, s/p intubation in ER) Chief complaint: Aspiration, s/p intubation in ER History of present illness: This is a 76-year-old male with history of COPD, coronary artery disease, chronic kidney disease stage III, prostate cancer, and atrial fibrillation on chronic anticoagulation with martha who was transferred from [place] after he aspirated food bolus while he was eating dinner and patient went into respiratory failure after he choked on the foods, in the ER he was having respiratory distress with tachypnea and tachycardia and subsequently patient was intubated, during intubation piece of chicken was noted on his vocal code, which was removed by suction, therefore patient was transferred to ICU for further management of mechanical ventilation. Past Med Surg Social Fam HX - Past Medical History Medical history: aortic aneurysm, cancer, CHF, COPD, coronary artery disease, CVA, hyperlipidemia, hypertension, renal disease Psychiatric history: anxiety, bipolar, depression - Social History Smoking Status: Unknown if ever smoked Alcohol use: unknown Drug use: unknown - Family History Mother History Unknown: Yes Father History Unknown: Yes ROS unobtainable: due to endotracheal tube All Systems: A 10-system review of systems was performed and is negative for pertinent findings except as documented above in the HPI. Physical Examination Vital Signs: Vital Signs, Last 4 Hours Pulse Resp BP Pulse Ox 01/23/17 06:00 105 15 91/60 95 01/23/17 05:58 16 91/56 95 01/23/17 05:00 107 16 99/75 95 01/23/17 04:00 107 15 107/71 92 01/23/17 03:50 17 89/54 96 General appearance: no acute distress, other (IV sedation) Eyes: nonicteric ENT: oropharynx moist Neck: supple Effort: normal Inspection: normal Auscultation: bilateral: clear Cardiovascular: irregular rhythm (But normal heart rate) Gastrointestinal: normoactive bowel sounds, soft, non-distended Integumentary: normal Extremities: no cyanosis, no edema, no clubbing, pink and warm, pulses normal Musculoskeletal: no deformities pupils equal and round, other (On IV sedation) Ventilator Settings Ventilator Settings: Ventilator Settings, Last 8 Hours Ventilator Mode VC+ Ventilator Mode VC+ Ventilator Mode VC+ Ventilator Mode VC+ Ventilator Mode VC+ Ventilator Mode VC+ Ventilator Tidal Volume 500 Setting Ventilator Tidal Volume 500 Setting Ventilator Tidal Volume 500 Setting Ventilator Tidal Volume 500 Setting Ventilator Tidal Volume 500 Setting Ventilator Tidal Volume 500 Setting Ventilator Respiratory Rate 16 Setting Ventilator Respiratory Rate 16 Setting Ventilator Respiratory Rate 16 Setting Ventilator Respiratory Rate 16 Setting Ventilator Respiratory Rate 16 Setting Ventilator Respiratory Rate 16 Setting Actual Respiratory Rate 16 Actual Respiratory Rate 17 Actual Respiratory Rate 16 Actual Respiratory Rate 16 Positive End Expiratory 5 Pressure Positive End Expiratory 5 Pressure Positive End Expiratory 5 Pressure Positive End Expiratory 5 Pressure Positive End Expiratory 5 Pressure Positive End Expiratory 5 Pressure Peak Inspiratory Airway 37 Pressure Peak Inspiratory Airway 35 Pressure Peak Inspiratory Airway 30 Pressure Peak Inspiratory Airway 34 Pressure Results - Laboratory Findings CBC and BMP: 01/23/17 00:50 01/23/17 00:50 ABG ABG pH 7.37 pH Units (7.32-7.45) D 01/23/17 04:35 ABG pCO2 48 mmHg (35-45) H D 01/23/17 04:35 ABG pO2 93 mmHg (85-104) 01/23/17 04:35 ABG O2 Saturation 97 % (95-98) 01/23/17 04:35 PT/INR, D-dimer PT 12.6 Seconds (9.4-12.1) H 01/22/17 18:48 Abnormal lab findings: Abnormal lab results WBC 16.4 K/mcL (4.3-11.1) H 01/23/17 00:50 MCHC 29.8 g/dL (31.6-35.5) L 01/23/17 00:50 RDW 15.6 % (11.5-14.5) H 01/23/17 00:50 Neutrophils # 14.3 K/mcL (1.6-8.9) H 01/23/17 00:50 PT 12.6 Seconds (9.4-12.1) H 01/22/17 18:48 APTT 36.1 Seconds (26.0-36.0) H 01/22/17 18:48 ABG pCO2 48 mmHg (35-45) H D 01/23/17 04:35 ABG HCO3 27.7 mEQ/L (21-27) H 01/23/17 04:35 ABG Total CO2 29.2 mEq/L (20-26) H 01/23/17 04:35 Potassium 5.3 mEq/L (3.5-4.5) H 01/23/17 00:50 Glucose 120 mg/dL (70-99) H 01/23/17 00:50 POC Glucose 147 (58-89) H 01/22/17 21:20 Calculated Osmolality 303 (280-300) H 01/23/17 00:50 Lactic Acid 2.4 mmol/L (0.5-2.2) H 01/23/17 00:50 Calcium 8.5 mg/dL (8.6-10.8) L 01/23/17 00:50 B-Natriuretic Peptide 124 pg/mL (0-100) H 01/22/17 18:48 Albumin 3.0 g/dL (3.5-5.0) L 01/23/17 00:50 Globulin 3.8 g/dL (2.4-3.5) H 01/23/17 00:50 Albumin/Globulin Ratio 0.8 (1.1-2.2) L 01/23/17 00:50 - Microbiology Findings Microbiology Findings: Microbiology, Last 48 Hours 01/22/17 23:00 Sputum Culture - Preliminary Sputum - Clinical Findings Intake & Output: Intake & Output 01/22/17 01/22/17 01/23/17 15:59 23:59 07:59 Intake Total 1050 / 2150 1300 / 1300 Output Total 450 / 450 150 / 150 Balance 600 / 1700 1150 / 1150
[2017-01-23] MEDS: Chlorhexidine Rinse 15 ML MOUTHWASH MM SCH ×2 (08:35→19:47)
[2017-01-23] MEDS ORDERED: Divalproex (24 HR) 250 MG TABLET PO SCH (09:00)
[2017-01-23] MEDS ORDERED: Metoprolol XL (24 HR) Succ 50 MG TAB.ER.24H PO SCH (09:00)
[2017-01-23] MEDS: Aspirin Enteric Coated 81 MG Tablet PO SCH (09:40)
[2017-01-23] MEDS: APIXABAN 5 MG TABLET PO SCH ×2 (09:41→19:47)
[2017-01-23] MEDS: Finasteride 5 MG TABLET PO SCH (09:42)
[2017-01-23] MEDS ORDERED: *HR* EPINEPHrine 1 MG/10 ML SYRINGE INTRATRACH PRN (09:47)
[2017-01-23] MEDS ORDERED: *HR* EPINEPHrine 1 MG/10 ML SYRINGE ONE (09:49)
[2017-01-23 11:39] LABS: Appearance of Body Fluid Cloudy (Clear); Volume of Body Fluid 22 mL
[2017-01-23] MEDS: Valproic Acid Oral Soln 250 MG/5 ML UDC GTUBE SCH ×3 (13:44→23:58)
[2017-01-23] MEDS: *HR* Heparin 5,000 UNIT/ML VIAL SQ SCH (19:10)
[2017-01-23] MEDS: Oseltamivir Phosphate 30 MG CAPSULE PO SCH (19:48)
[2017-01-24] MEDS: Ampicillin/Sulbactam 3,000 MG in 0.9 % Sodium Chloride Mini Bag 100 ML IVPB SCH ×4 (00:01→17:39)
[2017-01-24] MEDS: Lacri-Lube 3.5 GM TUBE BOTH EYES SCH ×6 (00:02→16:02)
[2017-01-24] MEDS: 0.9 % Sodium Chloride 1,000 ML IVC SCH ×4 (01:55→21:06)
[2017-01-24 03:31] LABS: Eosinophils % 0.1 %; Hematocrit 39.1 % (37.5-50.1); Immature Granulocytes % 0.7 % (0-4); Immature Platelets 8.2 % (1.1-6.1); Lymphocytes % 9.7 %; Mean Corpuscular HGB Conc 30.7 g/dL (31.6-35.5); Mean Corpuscular Hemoglobin 29.3 pg (28.0-33.3); Mean Corpuscular Volume 95.4 fL (83.0-100.0); Mean Platelet Volume 11.6 fL (9.4-12.4); Monocytes # 0.9 K/mcL (0.0-1.3); Monocytes % 8.9 %; Neutrophils # 8.5 K/mcL (1.6-8.9); Platelet Count 191 K/mcL (140-400); Red Cell Distribution Width 15.9 % (11.5-14.5); Segmented Neutrophils % 80.6 %
[2017-01-24 03:43] LABS: BUN/Creatinine Ratio 22 (6-26); Blood Urea Nitrogen 22 mg/dL (8-26); Calcium 8.7 mg/dL (8.6-10.8); Carbon Dioxide 25 mEq/L (19-29); Chloride 112 mEq/L (98-109); Glucose 118 mg/dL (70-99); Osmolality,Calculated 306 (280-300); Potassium 4.5 mEq/L (3.5-4.5); Sodium 146 mEq/L (136-145); eGFR For African Americans > 60 (> 60); eGFR For Non-African Americans > 60 (> 60)
[2017-01-24 04:24] LABS: ABG Base Excess 4.6 mEq/L (-2.0 to 3.0); ABG HCO3 31.5 mEQ/L (21-27); ABG Oxygen Saturation 98 % (95-98); ABG PCO2 57 mmHg (35-45); ABG PH 7.35 pH Units (7.32-7.45); ABG PO2 109 mmHg (85-104); ABG TCO2 33.2 mEq/L (20-26)
[2017-01-24 04:27] LABS: Blood Gas FiO2 40 %; Blood Gas Respiration Rate 16
[2017-01-24 04:28] LABS: Blood Gas PEEP 5 cm H2O; Blood Gas VT 500 cc
--- NOTE | 2017-01-24 05:48 | Pulmonology Progress Note ---
<Scott Peñaloza - Last Filed: 01/24/17 10:22> Date of Encounter: 01/24/17 Time of Encounter: 05:48 Assessment and Plan (1) Acute respiratory failure Current Visit: Yes Status: Acute Unfortunately patient failed breathing trial this morning due to A. fib RVR. Acute respiratory failure was secondary to aspiration of food bolus into his airway, bronchoscopy was done yesterday and it showed copious, mucopurulent secretions were found throughout the tracheobronchial tree, they were partially obstructing the airway, a bronchoalveolar lavage was performed, patient will remain on mechanical ventilation overnight and hopefully we can extubate him in the morning. Qualifiers: Qualified Code(s): J96.01 - Acute respiratory failure with hypoxia (2) Aspiration of food Current Visit: Yes Status: Acute Bronchoscopy was done yesterday and it showed copious, mucopurulent secretions were found throughout the tracheobronchial tree, they were partially obstructing the airway, a bronchoalveolar lavage was performed, his leukocytosis is likely reactive from aspiration and acute respiratory failure, currently patient is on Unasyn IV, unlikely it is pneumonia, sputum culture is negative, blood cultures are pending, patient will remain on mechanical ventilation overnight. Qualifiers: Qualified Code(s): T17.890A - Other foreign object in other parts of respiratory tract causing asphyxiation, initial encounter (3) Mass of upper lobe of left lung Current Visit: Yes Status: Acute Bronchoscopy showed a medium-sized nearly obstructing, greater than 90% obstructed, fungating, congested, edematous, erythematous, vascular and raised lesion found which is about 5 cm from the bifurcation of the aguila in the left upper lobe. Endobronchial biopsies were performed of left upper lobe use and sent for histopathology examination. (4) Atrial fibrillation Current Visit: Yes Status: Acute Currently heart rate has been stable, will switch from metoprolol XL to short- acting metoprolol and continue with Eliquis. Qualifiers: Qualified Code(s): I48.91 - Unspecified atrial fibrillation (5) COPD (chronic obstructive pulmonary disease) Current Visit: Yes Status: Acute Not in acute exacerbation, will continue oxygen support through mechanical ventilation and bronchodilator treatment as needed. Qualifiers: Qualified Code(s): J44.9 - Chronic obstructive pulmonary disease, unspecified (6) DVT prophylaxis Current Visit: Yes Status: Acute Eliquis. Subjective Principal diagnosis: Aspiration of food bolus, acute respiratory failure Interval history: Patient seen and examined. Patient failed breathing trial this morning due to atrial fibrillation with RVR, patient was put back on IV sedation, no acute events overnight, heart rate has been normalized now. Objective PUL Vital signs: Last Vital Signs Temp 99.3 F 01/24/17 03:33 Pulse 113 01/24/17 04:00 Resp 16 01/24/17 04:00 BP 122/78 01/24/17 04:00 Pulse Ox 99 01/24/17 04:00 General appearance: no acute distress, other (on IV sedation) Eyes: nonicteric ENT: oropharynx moist Neck: supple Effort: normal Auscultation: bilateral: clear Cardiovascular: irregular rhythm (But normal heart rate) Gastrointestinal: normoactive bowel sounds, soft, non-distended Integumentary: normal Extremities: no cyanosis, no edema, no clubbing, pink and warm, pulses normal Musculoskeletal: no deformities pupils equal and round, other (on IV sedation) Ventilator Settings Ventilator Settings: Ventilator Settings, Last 8 Hours Ventilator Mode VC+ Ventilator Mode A/C Ventilator Mode A/C Ventilator Mode A/C Ventilator Mode A/C Ventilator Mode A/C Ventilator Tidal Volume 500 Setting Ventilator Tidal Volume 500 Setting Ventilator Tidal Volume 500 Setting Ventilator Tidal Volume 500 Setting Ventilator Tidal Volume 500 Setting Ventilator Tidal Volume 500 Setting Ventilator Respiratory Rate 16 Setting Ventilator Respiratory Rate 16 Setting Ventilator Respiratory Rate 16 Setting Ventilator Respiratory Rate 16 Setting Ventilator Respiratory Rate 16 Setting Ventilator Respiratory Rate 16 Setting Actual Respiratory Rate 16 Actual Respiratory Rate 16 Actual Respiratory Rate 16 Actual Respiratory Rate 16 Actual Respiratory Rate 16 Positive End Expiratory 5 Pressure Positive End Expiratory 5 Pressure Positive End Expiratory 5 Pressure Positive End Expiratory 5 Pressure Positive End Expiratory 5 Pressure Positive End Expiratory 5 Pressure Peak Inspiratory Airway 34 Pressure Peak Inspiratory Airway 31 Pressure Peak Inspiratory Airway 31 Pressure Peak Inspiratory Airway 33 Pressure Results - Laboratory Findings CBC and BMP: 01/24/17 03:09 01/24/17 03:09 ABG ABG pH 7.35 pH Units (7.32-7.45) 01/24/17 04:15 ABG pCO2 57 mmHg (35-45) H 01/24/17 04:15 ABG pO2 109 mmHg (85-104) H 01/24/17 04:15 ABG O2 Saturation 98 % (95-98) 01/24/17 04:15 PT/INR, D-dimer PT 12.6 Seconds (9.4-12.1) H 01/22/17 18:48 Abnormal lab findings: Abnormal lab results RBC 4.10 M/mcL (4.19-5.50) L 01/24/17 03:09 Hgb 12.0 g/dL (12.9-16.9) L D 01/24/17 03:09 MCHC 30.7 g/dL (31.6-35.5) L 01/24/17 03:09 RDW 15.9 % (11.5-14.5) H 01/24/17 03:09 Immature Plt Fraction 8.2 % (1.1-6.1) H 01/24/17 03:09 PT 12.6 Seconds (9.4-12.1) H 01/22/17 18:48 APTT 36.1 Seconds (26.0-36.0) H 01/22/17 18:48 ABG pCO2 57 mmHg (35-45) H 01/24/17 04:15 ABG pO2 109 mmHg (85-104) H 01/24/17 04:15 ABG HCO3 31.5 mEQ/L (21-27) H 01/24/17 04:15 ABG Total CO2 33.2 mEq/L (20-26) H 01/24/17 04:15 ABG Base Excess 4.6 mEq/L (-2.0 to 3.0) H 01/24/17 04:15 Sodium 146 mEq/L (136-145) H 01/24/17 03:09 Chloride 112 mEq/L (98-109) H 01/24/17 03:09 Glucose 118 mg/dL (70-99) H 01/24/17 03:09 POC Glucose 147 (58-89) H 01/22/17 21:20 Calculated Osmolality 306 (280-300) H 01/24/17 03:09 Lactic Acid 2.4 mmol/L (0.5-2.2) H 01/23/17 00:50 B-Natriuretic Peptide 124 pg/mL (0-100) H 01/22/17 18:48 Albumin 3.0 g/dL (3.5-5.0) L 01/23/17 00:50 Globulin 3.8 g/dL (2.4-3.5) H 01/23/17 00:50 Albumin/Globulin Ratio 0.8 (1.1-2.2) L 01/23/17 00:50 Fluid Appearance Cloudy (Clear) A 01/23/17 09:44 - Microbiology Findings Microbiology Findings: Microbiology, Last 48 Hours 01/23/17 09:44 Gram Stain - Final Left Upper Lobe Lung 01/22/17 23:00 Sputum Culture - Preliminary Sputum - Clinical Findings Intake & Output: Intake & Output 01/23/17 01/23/17 01/24/17 15:59 23:59 07:59 Intake Total 1200 / 1200 1200 / 1200 1200 / 1200 Output Total 75 / 75 400 / 400 150 / 150 Balance 1125 / 1125 800 / 800 1050 / 1050 Weight 106.5 kg Consult Discharge Plan - Plan [facility]errals: [facility]Primary Care Provider[facility] - <Supriya Coy - Last Filed: 01/24/17 19:54> Date of Encounter: 01/24/17 Objective PUL Vital signs: Last Vital Signs Temp 99.5 F 01/24/17 07:42 Pulse 114 01/24/17 07:40 Resp 16 01/24/17 07:57 BP 106/71 01/24/17 07:57 Pulse Ox 100 01/24/17 07:57 Ventilator Settings Ventilator Settings: Ventilator Settings, Last 8 Hours Ventilator Mode CPAP Ventilator Mode VC+ Ventilator Mode CPAP Ventilator Mode VC+ Ventilator Mode A/C Ventilator Mode A/C Ventilator Tidal Volume 500 Setting Ventilator Tidal Volume 500 Setting Ventilator Tidal Volume 500 Setting Ventilator Tidal Volume 500 Setting Ventilator Tidal Volume 500 Setting Ventilator Respiratory Rate 16 Setting Ventilator Respiratory Rate 16 Setting Ventilator Respiratory Rate 16 Setting Ventilator Respiratory Rate 16 Setting Ventilator Respiratory Rate 16 Setting Actual Respiratory Rate 16 Actual Respiratory Rate 16 Actual Respiratory Rate 23 Actual Respiratory Rate 16 Actual Respiratory Rate 16 Positive End Expiratory 5 Pressure Positive End Expiratory 5 Pressure Positive End Expiratory 5 Pressure Positive End Expiratory 5 Pressure Positive End Expiratory 5 Pressure Positive End Expiratory 5 Pressure Peak Inspiratory Airway 35 Pressure Peak Inspiratory Airway 35 Pressure Peak Inspiratory Airway 16 Pressure Peak Inspiratory Airway 34 Pressure Results - Laboratory Findings CBC and BMP: 01/24/17 03:09 01/24/17 03:09 ABG ABG pH 7.35 pH Units (7.32-7.45) 01/24/17 04:15 ABG pCO2 57 mmHg (35-45) H 01/24/17 04:15 ABG pO2 109 mmHg (85-104) H 01/24/17 04:15 ABG O2 Saturation 98 % (95-98) 01/24/17 04:15 PT/INR, D-dimer PT 12.6 Seconds (9.4-12.1) H 01/22/17 18:48 Abnormal lab findings: Abnormal lab results RBC 4.10 M/mcL (4.19-5.50) L 01/24/17 03:09 Hgb 12.0 g/dL (12.9-16.9) L D 01/24/17 03:09 MCHC 30.7 g/dL (31.6-35.5) L 01/24/17 03:09 RDW 15.9 % (11.5-14.5) H 01/24/17 03:09 Immature Plt Fraction 8.2 % (1.1-6.1) H 01/24/17 03:09 PT 12.6 Seconds (9.4-12.1) H 01/22/17 18:48 APTT 36.1 Seconds (26.0-36.0) H 01/22/17 18:48 ABG pCO2 57 mmHg (35-45) H 01/24/17 04:15 ABG pO2 109 mmHg (85-104) H 01/24/17 04:15 ABG HCO3 31.5 mEQ/L (21-27) H 01/24/17 04:15 ABG Total CO2 33.2 mEq/L (20-26) H 01/24/17 04:15 ABG Base Excess 4.6 mEq/L (-2.0 to 3.0) H 01/24/17 04:15 Sodium 146 mEq/L (136-145) H 01/24/17 03:09 Chloride 112 mEq/L (98-109) H 01/24/17 03:09 Glucose 118 mg/dL (70-99) H 01/24/17 03:09 POC Glucose 147 (58-89) H 01/22/17 21:20 Calculated Osmolality 306 (280-300) H 01/24/17 03:09 Lactic Acid 2.4 mmol/L (0.5-2.2) H 01/23/17 00:50 B-Natriuretic Peptide 124 pg/mL (0-100) H 01/22/17 18:48 Albumin 3.0 g/dL (3.5-5.0) L 01/23/17 00:50 Globulin 3.8 g/dL (2.4-3.5) H 01/23/17 00:50 Albumin/Globulin Ratio 0.8 (1.1-2.2) L 01/23/17 00:50 Fluid Appearance Cloudy (Clear) A 01/23/17 09:44 - Microbiology Findings Microbiology Findings: Microbiology, Last 48 Hours 01/23/17 09:44 Gram Stain - Final Left Upper Lobe Lung 01/22/17 23:00 Sputum Culture - Preliminary Sputum - Clinical Findings Intake & Output: Intake & Output 01/23/17 01/24/17 01/24/17 23:59 07:59 15:59 Intake Total 1200 / 1200 1300 / 1300 1000 / 1000 Output Total 400 / 400 300 / 300 Balance 800 / 800 1000 / 1000 1000 / 1000 Weight 106.5 kg - Attending Attestation I examined this patient and my medical decision-making was reviewed with the CELLOPHANE PRESS OPERATOR/PA/Advanced Practice Nurse/Resident Physician. I agree with the documented findings, disposition and treatment plan as described except to the extent set forth below. Patient seen and examined. Labs, radiology, chart personally reviewed. Agree with resident's history and physical, assessment, plan with following comments: PROPOSAL MANAGER WRITER: Patient sedated and does not follows commands, Pulmonary: Acceptable oxygenation and ventilation, however patient didn't pass spontaneous breathing trial due to tachycardia and his medication will be resumed. Follow-up on the biopsy that was done during bronchoscopy. Cardiovascular: stable. Resume anticoagulation and beta blockers for his atrial fibrillation GI: Nutrition per dietary and GI prophylaxis per routine Heme: DVT prophylaxis per routine. Stop heparin once oral anticoagulation and start. 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
[2017-01-24] MEDS: Valproic Acid Oral Soln 250 MG/5 ML UDC GTUBE SCH ×3 (06:17→17:39)
[2017-01-24] MEDS: Pantoprazole 40 MG VIAL IVP SCH (06:18)
[2017-01-24] MEDS: *HR* Heparin 5,000 UNIT/ML VIAL SQ SCH (06:20)
[2017-01-24] MEDS: Chlorhexidine Rinse 15 ML MOUTHWASH MM SCH ×2 (08:47→20:45)
[2017-01-24] MEDS ORDERED: Divalproex Sodium 125 MG CAPSULE PO SCH (09:00)
[2017-01-24] MEDS: Finasteride 5 MG TABLET PO SCH (09:22)
[2017-01-24] MEDS: Aspirin Enteric Coated 81 MG Tablet PO SCH (09:22)
[2017-01-24] MEDS: APIXABAN 5 MG TABLET PO SCH ×2 (09:22→20:45)
[2017-01-24] MEDS: Oseltamivir Phosphate 30 MG CAPSULE PO SCH ×2 (09:36→20:45)
[2017-01-24] MEDS: Nystatin POWDER 30 GM BOTTLE TP PRN (14:52)
[2017-01-24] MEDS: OLANZapine 5 MG TAB.RAPDIS PO SCH (20:45)
[2017-01-25] MEDS: Ampicillin/Sulbactam 3,000 MG in 0.9 % Sodium Chloride Mini Bag 100 ML IVPB SCH ×3 (00:05→11:17)
[2017-01-25] MEDS: Valproic Acid Oral Soln 250 MG/5 ML UDC GTUBE SCH ×5 (00:07→23:34)
[2017-01-25] MEDS: Lacri-Lube 3.5 GM TUBE BOTH EYES SCH ×7 (00:17→23:35)
[2017-01-25] MEDS: 0.9 % Sodium Chloride 1,000 ML IVC SCH (03:33)
[2017-01-25 04:06] LABS: Basophils % 0.1 %; Eosinophils % 0.1 %; Hematocrit 32.3 % (37.5-50.1); Immature Granulocytes % 0.4 % (0-4); Lymphocytes # 1.1 K/mcL (0.6-4.6); Mean Corpuscular HGB Conc 30.7 g/dL (31.6-35.5); Mean Corpuscular Hemoglobin 29.4 pg (28.0-33.3); Mean Corpuscular Volume 95.8 fL (83.0-100.0); Mean Platelet Volume 11.6 fL (9.4-12.4); Monocytes # 0.5 K/mcL (0.0-1.3); Monocytes % 6.3 %; Neutrophils # 6.4 K/mcL (1.6-8.9); Platelet Count 164 K/mcL (140-400); Red Blood Count 3.37 M/mcL (4.19-5.50); Segmented Neutrophils % 79.1 %
[2017-01-25 04:07] LABS: Hemoglobin 9.9 g/dL (12.9-16.9)
[2017-01-25 04:15] LABS: BUN/Creatinine Ratio 28 (6-26); Blood Urea Nitrogen 24 mg/dL (8-26); Calcium 8.8 mg/dL (8.6-10.8); Carbon Dioxide 23 mEq/L (19-29); Chloride 114 mEq/L (98-109); Glucose 104 mg/dL (70-99); Osmolality,Calculated 308 (280-300); Potassium 4.1 mEq/L (3.5-4.5); Sodium 147 mEq/L (136-145); eGFR For African Americans > 60 (> 60); eGFR For Non-African Americans > 60 (> 60)
[2017-01-25] MEDS: Pantoprazole 40 MG VIAL IVP SCH (05:15)
[2017-01-25 05:28] LABS: ABG Base Excess 2.7 mEq/L (-2.0 to 3.0); ABG HCO3 27.9 mEQ/L (21-27); ABG Oxygen Saturation 98 % (95-98); ABG PCO2 45 mmHg (35-45); ABG PO2 102 mmHg (85-104); ABG TCO2 29.3 mEq/L (20-26)
[2017-01-25 05:29] LABS: Blood Gas FiO2 40 %
[2017-01-25] MEDS: Finasteride 5 MG TABLET PO SCH (07:51)
[2017-01-25] MEDS: Chlorhexidine Rinse 15 ML MOUTHWASH MM SCH ×2 (07:51→20:38)
[2017-01-25] MEDS: Oseltamivir Phosphate 30 MG CAPSULE PO SCH (07:52)
[2017-01-25] MEDS: APIXABAN 5 MG TABLET PO SCH ×2 (07:52→20:38)
--- NOTE | 2017-01-25 08:54 | Electrocardiograph Report ---
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
[2017-01-25] MEDS ORDERED: Furosemide 40 MG/4 ML VIAL IVP ONE ×2 (11:00→17:32)
[2017-01-25] MEDS: Aspirin 81 MG TAB.CHEW PO SCH (11:16)
[2017-01-25] MEDS: FentaNYL (PF) 1,000 MCG in 0.9 % Sodium Chloride 80 ML IVC SCH ×2 (11:20→20:38)
[2017-01-25] MEDS ORDERED: Ipratropium/Albuterol Neb 3 ML IH PRN (11:31)
[2017-01-25] MEDS ORDERED: Ipratropium/Albuterol Neb 3 ML ONE (12:14)
[2017-01-25] MEDS: Ipratropium/Albuterol Neb 3 ML IH SCH ×3 (12:15→22:05)
--- NOTE | 2017-01-25 15:16 | Pulmonology Progress Note ---
Date of Encounter: 01/25/17 Time of Encounter: 15:14 Assessment and Plan (1) Acute respiratory failure Current Visit: Yes Status: Acute Acute respiratory failure was secondary to aspiration of food bolus into his airway, bronchoscopy was done 01/23 and it showed copious, mucopurulent secretions were found throughout the tracheobronchial tree, they were partially obstructing the airway, a bronchoalveolar lavage was performed. Multifactorial with fluid overload component. Maintenance fluids have been discontinued. Lasix 40mg IV given. Fentanyl added to propofol for sedation. Nutrition consult added to begin tube feedings. Qualifiers: Respiratory failure complication: hypoxia Qualified Code(s): J96.01 - Acute respiratory failure with hypoxia (2) Aspiration of food Current Visit: Yes Status: Acute See above Qualifiers: Qualified Code(s): T17.890A - Other foreign object in other parts of respiratory tract causing asphyxiation, initial encounter (3) Mass of upper lobe of left lung Current Visit: Yes Status: Acute Bronchoscopy showed a medium-sized nearly obstructing, greater than 90% obstructed, fungating, congested, edematous, erythematous, vascular and raised lesion found which is about 5 cm from the bifurcation of the aguila in the left upper lobe. Endobronchial biopsies were performed of left upper lobe use and sent for histopathology examination. (4) Atrial fibrillation Current Visit: Yes Status: Acute Continue Eliquis. Heart rate has been controlled on lopressor 25mg. Qualifiers: Qualified Code(s): I48.91 - Unspecified atrial fibrillation (5) COPD (chronic obstructive pulmonary disease) Current Visit: Yes Status: Acute Duo neb treatments MARQUES. Unasyn has been discontinued as sputum culture and blood cultures were negative. Qualifiers: Qualified Code(s): J44.9 - Chronic obstructive pulmonary disease, unspecified (6) DVT prophylaxis Current Visit: Yes Status: Acute Patient on Eliquis Subjective Principal diagnosis: Aspiration of food bolus, acute respiratory failure Interval history: Patient seen and examined. Continues to be sedated and on vent. Heart rate remains normal. No acute events overnight. Objective PUL Vital signs: Last Vital Signs Temp 98.9 F 01/25/17 13:09 Pulse 98 01/25/17 13:00 Resp 16 01/25/17 13:34 BP 144/93 01/25/17 13:34 Pulse Ox 100 01/25/17 13:34 General appearance: other (sedated) Eyes: nonicteric ENT: oropharynx moist Effort: normal Auscultation: bilateral: clear Cardiovascular: irregular rhythm, other (normal rate) Gastrointestinal: normoactive bowel sounds Integumentary: normal Extremities: no cyanosis Musculoskeletal: no deformities other (patient sedated) Ventilator Settings Ventilator Settings: Ventilator Settings, Last 8 Hours Ventilator Mode VC+ Ventilator Mode VC+ Ventilator Mode VC+ Ventilator Mode VC+ Ventilator Mode VC+ Ventilator Mode VC+ Ventilator Mode VC+ Ventilator Mode VC+ Ventilator Mode VC+ Ventilator Mode VC+ Ventilator Tidal Volume 500 Setting Ventilator Tidal Volume 500 Setting Ventilator Tidal Volume 500 Setting Ventilator Tidal Volume 500 Setting Ventilator Tidal Volume 500 Setting Ventilator Tidal Volume 500 Setting Ventilator Tidal Volume 500 Setting Ventilator Tidal Volume 500 Setting Ventilator Tidal Volume 500 Setting Ventilator Tidal Volume 500 Setting Ventilator Respiratory Rate 16 Setting Ventilator Respiratory Rate 16 Setting Ventilator Respiratory Rate 16 Setting Ventilator Respiratory Rate 16 Setting Ventilator Respiratory Rate 16 Setting Ventilator Respiratory Rate 16 Setting Ventilator Respiratory Rate 16 Setting Ventilator Respiratory Rate 16 Setting Ventilator Respiratory Rate 16 Setting Ventilator Respiratory Rate 16 Setting Actual Respiratory Rate 16 Actual Respiratory Rate 16 Actual Respiratory Rate 16 Actual Respiratory Rate 16 Actual Respiratory Rate 16 Actual Respiratory Rate 16 Actual Respiratory Rate 16 Actual Respiratory Rate 16 Actual Respiratory Rate 16 Actual Respiratory Rate 16 Positive End Expiratory 5 Pressure Positive End Expiratory 5 Pressure Positive End Expiratory 5 Pressure Positive End Expiratory 5 Pressure Positive End Expiratory 5 Pressure Positive End Expiratory 5 Pressure Positive End Expiratory 5 Pressure Positive End Expiratory 5 Pressure Positive End Expiratory 5 Pressure Positive End Expiratory 5 Pressure Peak Inspiratory Airway 29 Pressure Peak Inspiratory Airway 30 Pressure Peak Inspiratory Airway 38 Pressure Peak Inspiratory Airway 38 Pressure Peak Inspiratory Airway 40 Pressure Peak Inspiratory Airway 41 Pressure Peak Inspiratory Airway 39 Pressure Peak Inspiratory Airway 39 Pressure Peak Inspiratory Airway 39 Pressure Peak Inspiratory Airway 39 Pressure Results - Laboratory Findings CBC and BMP: 01/25/17 03:46 01/25/17 03:46 ABG ABG pH 7.40 pH Units (7.32-7.45) 01/25/17 05:20 ABG pCO2 45 mmHg (35-45) 01/25/17 05:20 ABG pO2 102 mmHg (85-104) 01/25/17 05:20 ABG O2 Saturation 98 % (95-98) 01/25/17 05:20 PT/INR, D-dimer PT 12.6 Seconds (9.4-12.1) H 01/22/17 18:48 Abnormal lab findings: Abnormal lab results RBC 3.37 M/mcL (4.19-5.50) L 01/25/17 03:46 Hgb 9.9 g/dL (12.9-16.9) L D 01/25/17 03:46 Hct 32.3 % (37.5-50.1) L 01/25/17 03:46 MCHC 30.7 g/dL (31.6-35.5) L 01/25/17 03:46 RDW 16.0 % (11.5-14.5) H 01/25/17 03:46 Immature Plt Fraction 8.2 % (1.1-6.1) H 01/24/17 03:09 PT 12.6 Seconds (9.4-12.1) H 01/22/17 18:48 APTT 36.1 Seconds (26.0-36.0) H 01/22/17 18:48 ABG HCO3 27.9 mEQ/L (21-27) H 01/25/17 05:20 ABG Total CO2 29.3 mEq/L (20-26) H 01/25/17 05:20 Sodium 147 mEq/L (136-145) H 01/25/17 03:46 Chloride 114 mEq/L (98-109) H 01/25/17 03:46 BUN/Creatinine Ratio 28 (6-26) H 01/25/17 03:46 Glucose 104 mg/dL (70-99) H 01/25/17 03:46 POC Glucose 147 (58-89) H 01/22/17 21:20 Calculated Osmolality 308 (280-300) H 01/25/17 03:46 Lactic Acid 2.4 mmol/L (0.5-2.2) H 01/23/17 00:50 B-Natriuretic Peptide 124 pg/mL (0-100) H 01/22/17 18:48 Albumin 3.0 g/dL (3.5-5.0) L 01/23/17 00:50 Globulin 3.8 g/dL (2.4-3.5) H 01/23/17 00:50 Albumin/Globulin Ratio 0.8 (1.1-2.2) L 01/23/17 00:50 Fluid Appearance Cloudy (Clear) A 01/23/17 09:44 - Microbiology Findings Microbiology Findings: Microbiology, Last 48 Hours 01/23/17 09:44 Gram Stain - Final Left Upper Lobe Lung Respiratory Culture - Final Normal upper respiratory tract viktoriya. No apparent pathogens isolated. 01/22/17 23:00 Sputum Culture - Final Sputum - Clinical Findings Intake & Output: Intake & Output 01/24/17 01/25/17 01/25/17 23:59 07:59 15:59 Intake Total 1300 / 1300 1400 / 1400 1254.8 / 1254.8 Output Total 100 / 100 400 / 400 800 / 800 Balance 1200 / 1200 1000 / 1000 454.8 / 454.8 Weight 112.1 kg Consult Discharge Plan - Plan [facility]errals: [facility] [Primary Care Provider] - - Attending Attestation I examined this patient and my medical decision-making was reviewed with the HOP FARMER/PA/Advanced Practice Nurse/Resident Physician. I agree with the documented findings, disposition and treatment plan as described except to the extent set forth below.
[2017-01-25 17:16] LABS: BUN/Creatinine Ratio 23 (6-26); Blood Urea Nitrogen 18 mg/dL (8-26); Calcium 8.6 mg/dL (8.6-10.8); Carbon Dioxide 25 mEq/L (19-29); Chloride 112 mEq/L (98-109); Glucose 93 mg/dL (70-99); Osmolality,Calculated 304 (280-300); Potassium 4.3 mEq/L (3.5-4.5); Sodium 146 mEq/L (136-145); eGFR For African Americans > 60 (> 60); eGFR For Non-African Americans > 60 (> 60)
[2017-01-25] MEDS: Nystatin POWDER 30 GM BOTTLE TP PRN (18:39)
[2017-01-25] MEDS: OLANZapine 5 MG TAB.RAPDIS PO SCH (20:38)
[2017-01-26] MEDS: Ipratropium/Albuterol Neb 3 ML IH SCH ×4 (04:18→21:25)
[2017-01-26] MEDS: Valproic Acid Oral Soln 250 MG/5 ML UDC GTUBE SCH ×4 (05:04→23:02)
[2017-01-26] MEDS: Pantoprazole 40 MG VIAL IVP SCH (05:06)
[2017-01-26] MEDS: Lacri-Lube 3.5 GM TUBE BOTH EYES SCH ×6 (05:14→23:04)
[2017-01-26] MEDS: FentaNYL (PF) 1,000 MCG in 0.9 % Sodium Chloride 80 ML IVC SCH (07:15)
[2017-01-26 07:49] LABS: Basophils % 0.1 %; Eosinophils % 0.4 %; Hematocrit 35.3 % (37.5-50.1); Hemoglobin 11.1 g/dL (12.9-16.9); Immature Granulocytes % 0.4 % (0-4); Immature Platelets 8.6 % (1.1-6.1); Lymphocytes # 1.1 K/mcL (0.6-4.6); Lymphocytes % 14.5 %; Mean Corpuscular HGB Conc 31.4 g/dL (31.6-35.5); Mean Corpuscular Volume 92.2 fL (83.0-100.0); Mean Platelet Volume 11.1 fL (9.4-12.4); Monocytes # 0.5 K/mcL (0.0-1.3); Monocytes % 6.8 %; Neutrophils # 5.9 K/mcL (1.6-8.9); Platelet Count 170 K/mcL (140-400); Red Blood Count 3.83 M/mcL (4.19-5.50); Red Cell Distribution Width 15.8 % (11.5-14.5); Segmented Neutrophils % 77.8 %
[2017-01-26 07:59] LABS: BUN/Creatinine Ratio 21 (6-26); Blood Urea Nitrogen 20 mg/dL (8-26); Carbon Dioxide 28 mEq/L (19-29); Chloride 109 mEq/L (98-109); Glucose 101 mg/dL (70-99); Osmolality,Calculated 307 (280-300); Sodium 147 mEq/L (136-145); eGFR For African Americans > 60 (> 60); eGFR For Non-African Americans > 60 (> 60)
[2017-01-26 08:00] LABS: Potassium 3.1 mEq/L (3.5-4.5)
[2017-01-26] MEDS: Aspirin 81 MG TAB.CHEW PO SCH (08:24)
[2017-01-26] MEDS: APIXABAN 5 MG TABLET PO SCH ×2 (08:24→20:18)
[2017-01-26] MEDS: Finasteride 5 MG TABLET PO SCH (08:24)
[2017-01-26] MEDS: Chlorhexidine Rinse 15 ML MOUTHWASH MM SCH ×2 (08:24→20:18)
[2017-01-26] MEDS ORDERED: Dextrose Gel 15 GM PO PRN ×2 (11:02)
[2017-01-26] MEDS ORDERED: Potassium Chloride 40 MEQ, Lidocaine 1% 2 ML in D5% in Water 500 ML IVPB ONE ×2 (11:02→18:04)
[2017-01-26] MEDS ORDERED: D5% in Water 1,000 ML IVC PRN (11:02)
[2017-01-26] MEDS ORDERED: *HR* Dextrose 50 % in Water (Syg) 50 ML SYRINGE IVP PRN (11:02)
--- NOTE | 2017-01-26 11:44 | Pulmonology Progress Note ---
Date of Encounter: 01/26/17 Time of Encounter: 09:45 Assessment and Plan (1) Acute respiratory failure Current Visit: Yes Status: Acute Acute respiratory failure was secondary to aspiration of food bolus into his airway, bronchoscopy was done 01/23 and it showed copious, mucopurulent secretions were found throughout the tracheobronchial tree, they were partially obstructing the airway, a bronchoalveolar lavage was performed. Multifactorial with fluid overload component. Maintenance fluids have been discontinued. Second dose of Lasix 40mg IV given. Continue Fentanyl and propofol for sedation. Nutrition consult added to begin tube feedings. SSI low dose and accuchecks Q6hr since tube feedings have been started. Continue diuresis for improved aeration of the lungs. Qualifiers: Respiratory failure complication: hypoxia Qualified Code(s): J96.01 - Acute respiratory failure with hypoxia (2) Aspiration of food Current Visit: Yes Status: Acute See above Qualifiers: Qualified Code(s): T17.890A - Other foreign object in other parts of respiratory tract causing asphyxiation, initial encounter (3) Mass of upper lobe of left lung Current Visit: Yes Status: Acute Bronchoscopy showed a medium-sized nearly obstructing, greater than 90% obstructed, fungating, congested, edematous, erythematous, vascular and raised lesion found which is about 5 cm from the bifurcation of the aguila in the left upper lobe. Endobronchial biopsies were performed of left upper lobe use and sent for histopathology examination. (4) Atrial fibrillation Current Visit: Yes Status: Acute Continue Eliquis. Heart rate has been controlled on lopressor 25mg. Heart rate was elevated during breathing trial. Returned to normal once sedated again. Qualifiers: Qualified Code(s): I48.91 - Unspecified atrial fibrillation (5) COPD (chronic obstructive pulmonary disease) Current Visit: Yes Status: Acute Duo neb treatments MARQUES. Qualifiers: Qualified Code(s): J44.9 - Chronic obstructive pulmonary disease, unspecified (6) DVT prophylaxis Current Visit: Yes Status: Acute Patient on Eliquis (7) Hypokalemia Current Visit: Yes Status: Acute 3.1 this AM. 40mEq ordered. Will recheck BMP this evening after infusion complete. Subjective Principal diagnosis: Aspiration of food bolus, acute respiratory failure Interval history: Patient seen and examined. Continues to be sedated and on vent. No acute events overnight. On spontaneous breathing trial today the patient was on CPAP for nearly 2 hours and then became tachycardic at 180bpm with 02 saturation decreasing to 85%. He was subsequently sedated and returned to mechanical ventilation. Objective PUL Vital signs: Last Vital Signs Temp 99.6 F 01/26/17 11:31 Pulse 91 01/26/17 10:00 Resp 16 01/26/17 11:19 BP 107/67 01/26/17 11:19 Pulse Ox 95 01/26/17 11:19 General appearance: other (sedated and intubated) Eyes: nonicteric ENT: oropharynx moist Neck: supple Effort: normal Auscultation: bilateral: clear Cardiovascular: irregular rhythm (regular rate) Gastrointestinal: normoactive bowel sounds, non-distended Integumentary: normal Extremities: no cyanosis Musculoskeletal: no deformities other (patient sedated and intubated) Ventilator Settings Ventilator Settings: Ventilator Settings, Last 8 Hours Ventilator Mode VC+ Ventilator Mode VC+ Ventilator Mode VC+ Ventilator Mode VC+ Ventilator Mode CPAP Ventilator Mode VC+ Ventilator Mode CPAP Ventilator Mode VC+ Ventilator Mode VC+ Ventilator Mode VC+ Ventilator Mode VC+ Ventilator Tidal Volume 500 Setting Ventilator Tidal Volume 500 Setting Ventilator Tidal Volume 500 Setting Ventilator Tidal Volume 500 Setting Ventilator Tidal Volume 500 Setting Ventilator Tidal Volume 500 Setting Ventilator Tidal Volume 500 Setting Ventilator Tidal Volume 500 Setting Ventilator Tidal Volume 500 Setting Ventilator Tidal Volume 500 Setting Ventilator Respiratory Rate 16 Setting Ventilator Respiratory Rate 16 Setting Ventilator Respiratory Rate 16 Setting Ventilator Respiratory Rate 16 Setting Ventilator Respiratory Rate 16 Setting Ventilator Respiratory Rate 16 Setting Ventilator Respiratory Rate 16 Setting Ventilator Respiratory Rate 16 Setting Ventilator Respiratory Rate 16 Setting Ventilator Respiratory Rate 16 Setting Actual Respiratory Rate 16 Actual Respiratory Rate 16 Actual Respiratory Rate 16 Actual Respiratory Rate 16 Actual Respiratory Rate 16 Actual Respiratory Rate 16 Actual Respiratory Rate 15 Actual Respiratory Rate 16 Actual Respiratory Rate 16 Actual Respiratory Rate 16 Actual Respiratory Rate 16 Positive End Expiratory 5 Pressure Positive End Expiratory 5 Pressure Positive End Expiratory 5 Pressure Positive End Expiratory 5 Pressure Positive End Expiratory 5 Pressure Positive End Expiratory 5 Pressure Positive End Expiratory 5 Pressure Positive End Expiratory 5 Pressure Positive End Expiratory 5 Pressure Positive End Expiratory 5 Pressure Positive End Expiratory 5 Pressure Peak Inspiratory Airway 21 Pressure Peak Inspiratory Airway 30 Pressure Peak Inspiratory Airway 39 Pressure Peak Inspiratory Airway 35 Pressure Peak Inspiratory Airway 37 Pressure Peak Inspiratory Airway 39 Pressure Peak Inspiratory Airway 16 Pressure Peak Inspiratory Airway 24 Pressure Peak Inspiratory Airway 31 Pressure Peak Inspiratory Airway 34 Pressure Results - Laboratory Findings CBC and BMP: 01/26/17 07:40 01/26/17 07:40 ABG ABG pH 7.40 pH Units (7.32-7.45) 01/25/17 05:20 ABG pCO2 45 mmHg (35-45) 01/25/17 05:20 ABG pO2 102 mmHg (85-104) 01/25/17 05:20 ABG O2 Saturation 98 % (95-98) 01/25/17 05:20 PT/INR, D-dimer PT 12.6 Seconds (9.4-12.1) H 01/22/17 18:48 Abnormal lab findings: Abnormal lab results RBC 3.83 M/mcL (4.19-5.50) L 01/26/17 07:40 Hgb 11.1 g/dL (12.9-16.9) L 01/26/17 07:40 Hct 35.3 % (37.5-50.1) L 01/26/17 07:40 MCHC 31.4 g/dL (31.6-35.5) L 01/26/17 07:40 RDW 15.8 % (11.5-14.5) H 01/26/17 07:40 Immature Plt Fraction 8.6 % (1.1-6.1) H 01/26/17 07:40 PT 12.6 Seconds (9.4-12.1) H 01/22/17 18:48 APTT 36.1 Seconds (26.0-36.0) H 01/22/17 18:48 ABG HCO3 27.9 mEQ/L (21-27) H 01/25/17 05:20 ABG Total CO2 29.3 mEq/L (20-26) H 01/25/17 05:20 Sodium 147 mEq/L (136-145) H 01/26/17 07:40 Potassium 3.1 mEq/L (3.5-4.5) L D 01/26/17 07:40 Glucose 101 mg/dL (70-99) H 01/26/17 07:40 POC Glucose 147 (58-89) H 01/22/17 21:20 Calculated Osmolality 307 (280-300) H 01/26/17 07:40 Lactic Acid 2.4 mmol/L (0.5-2.2) H 01/23/17 00:50 B-Natriuretic Peptide 124 pg/mL (0-100) H 01/22/17 18:48 Albumin 3.0 g/dL (3.5-5.0) L 01/23/17 00:50 Globulin 3.8 g/dL (2.4-3.5) H 01/23/17 00:50 Albumin/Globulin Ratio 0.8 (1.1-2.2) L 01/23/17 00:50 Fluid Appearance Cloudy (Clear) A 01/23/17 09:44 - Microbiology Findings Microbiology Findings: Microbiology, Last 48 Hours 01/23/17 09:44 Gram Stain - Final Left Upper Lobe Lung Respiratory Culture - Final Normal upper respiratory tract viktoriya. No apparent pathogens isolated. 01/22/17 23:00 Sputum Culture - Final Sputum - Clinical Findings Intake & Output: Intake & Output 01/25/17 01/26/17 01/26/17 23:59 07:59 15:59 Intake Total 339.2 / 339.2 268 / 268 0 / 0 Output Total 1300 / 1300 100 / 100 50 / 50 Balance -960.8 / -960.8 168 / 168 -50 / -50 Weight 109 kg Consult Discharge Plan - Plan Referrals: [facility] [Primary Care Provider] - - Attending Attestation I examined this patient and my medical decision-making was reviewed with the RESTAURANT BARTENDER/PA/Advanced Practice Nurse/Resident Physician. I agree with the documented findings, disposition and treatment plan as described except to the extent set forth below.
[2017-01-26] MEDS ORDERED: Furosemide 40 MG/4 ML VIAL IVP ONE ×2 (11:50→17:55)
[2017-01-26] MEDS: Insulin LISPRO 300 UNITS/3 ML VIAL SQ SCH ×2 (12:07→18:30)
[2017-01-26 17:34] LABS: BUN/Creatinine Ratio 19 (6-26); Blood Urea Nitrogen 20 mg/dL (8-26); Calcium 9.1 mg/dL (8.6-10.8); Carbon Dioxide 31 mEq/L (19-29); Chloride 107 mEq/L (98-109); Glucose 143 mg/dL (70-99); Osmolality,Calculated 309 (280-300); Potassium 2.9 mEq/L (3.5-4.5); Sodium 147 mEq/L (136-145); eGFR For African Americans > 60 (> 60); eGFR For Non-African Americans > 60 (> 60)
[2017-01-26] MEDS ORDERED: Potassium Chloride Elixir 20 MEQ/15 ML UDC GTUBE ONE (18:01)
[2017-01-26] MEDS: OLANZapine 5 MG TAB.RAPDIS PO SCH (20:18)
[2017-01-27] MEDS: Insulin LISPRO 300 UNITS/3 ML VIAL SQ SCH ×5 (00:05→23:21)
[2017-01-27] MEDS: Lacri-Lube 3.5 GM TUBE BOTH EYES SCH ×6 (02:52→23:16)
[2017-01-27 03:27] LABS: BUN/Creatinine Ratio 19 (6-26); Blood Urea Nitrogen 17 mg/dL (8-26); Calcium 8.9 mg/dL (8.6-10.8); Carbon Dioxide 30 mEq/L (19-29); Chloride 107 mEq/L (98-109); Glucose 111 mg/dL (70-99); Osmolality,Calculated 306 (280-300); Potassium 3.4 mEq/L (3.5-4.5); Sodium 147 mEq/L (136-145); eGFR For African Americans > 60 (> 60); eGFR For Non-African Americans > 60 (> 60)
[2017-01-27] MEDS: Ipratropium/Albuterol Neb 3 ML IH SCH ×4 (03:28→21:27)
[2017-01-27 03:30] LABS: Basophils % 0.4 %; Eosinophils # 0.1 K/mcL (0.0-0.6); Eosinophils % 0.9 %; Hematocrit 33.7 % (37.5-50.1); Hemoglobin 10.5 g/dL (12.9-16.9); Immature Granulocytes % 0.6 % (0-4); Lymphocytes # 1.1 K/mcL (0.6-4.6); Lymphocytes % 20.5 %; Mean Corpuscular HGB Conc 31.2 g/dL (31.6-35.5); Mean Corpuscular Hemoglobin 28.8 pg (28.0-33.3); Mean Corpuscular Volume 92.6 fL (83.0-100.0); Mean Platelet Volume 11.3 fL (9.4-12.4); Monocytes # 0.5 K/mcL (0.0-1.3); Monocytes % 8.5 %; Neutrophils # 3.7 K/mcL (1.6-8.9); Platelet Count 168 K/mcL (140-400); Red Blood Count 3.64 M/mcL (4.19-5.50); Red Cell Distribution Width 15.6 % (11.5-14.5); Segmented Neutrophils % 69.1 %
[2017-01-27 04:46] LABS: ABG Base Excess 12.2 mEq/L (-2.0 to 3.0); ABG HCO3 37.7 mEQ/L (21-27); ABG Oxygen Saturation 91 % (95-98); ABG PCO2 53 mmHg (35-45); ABG PH 7.46 pH Units (7.32-7.45); ABG PO2 57 mmHg (85-104); ABG TCO2 39.3 mEq/L (20-26); Blood Gas FiO2 30 %; Blood Gas PEEP 5 cm H2O; Blood Gas Respiration Rate 16; Blood Gas VT 500 cc
[2017-01-27] MEDS: Pantoprazole 40 MG VIAL IVP SCH (05:31)
[2017-01-27] MEDS: Valproic Acid Oral Soln 250 MG/5 ML UDC GTUBE SCH ×4 (05:31→23:16)
[2017-01-27] MEDS ORDERED: Furosemide 40 MG/4 ML VIAL IVP ONE (08:34)
[2017-01-27] MEDS: Finasteride 5 MG TABLET PO SCH (08:58)
[2017-01-27] MEDS: Chlorhexidine Rinse 15 ML MOUTHWASH MM SCH ×2 (08:58→20:16)
[2017-01-27] MEDS: APIXABAN 5 MG TABLET PO SCH ×2 (08:58→20:17)
[2017-01-27] MEDS: Aspirin 81 MG TAB.CHEW PO SCH (08:58)
--- NOTE | 2017-01-27 09:57 | Pulmonology Progress Note ---
Date of Encounter: 01/27/17 Time of Encounter: 08:50 Assessment and Plan (1) Acute respiratory failure Current Visit: Yes Status: Acute Acute respiratory failure was secondary to aspiration of food bolus into his airway, bronchoscopy was done 01/23 and it showed copious, mucopurulent secretions were found throughout the tracheobronchial tree, they were partially obstructing the airway, a bronchoalveolar lavage was performed. Multifactorial with fluid overload component. The patient will likely need to get more fluid off before he can be successfully extubated. Additional dose of Lasix 40mg IV given this morning. Continue Fentanyl and propofol for sedation. Continue tube feedings. SSI low dose and accuchecks Q6hr since tube feedings have been started. Continue diuresis for improved aeration of the lungs. Final day of Tamiflu today. Qualifiers: Respiratory failure complication: hypoxia Qualified Code(s): J96.01 - Acute respiratory failure with hypoxia (2) Aspiration of food Current Visit: Yes Status: Acute See above Qualifiers: Encounter type: initial encounter Qualified Code(s): T17.890A - Other foreign object in other parts of respiratory tract causing asphyxiation, initial encounter (3) Mass of upper lobe of left lung Current Visit: Yes Status: Acute Bronchoscopy showed a medium-sized nearly obstructing, greater than 90% obstructed, fungating, congested, edematous, erythematous, vascular and raised lesion found which is about 5 cm from the bifurcation of the aguila in the left upper lobe. Endobronchial biopsies were performed of left upper lobe use and sent for histopathology examination. (4) Atrial fibrillation Current Visit: Yes Status: Acute Continue Eliquis. Heart rate has been controlled on lopressor 25mg. Episodes of tachycardia during spontaneous breathing trials. Returned to normal once sedated again. Qualifiers: Atrial fibrillation type: unspecified Qualified Code(s): I48.91 - Unspecified atrial fibrillation (5) COPD (chronic obstructive pulmonary disease) Current Visit: Yes Status: Acute Duo neb treatments MARQUES. Qualifiers: COPD type: unspecified COPD Qualified Code(s): J44.9 - Chronic obstructive pulmonary disease, unspecified (6) DVT prophylaxis Current Visit: Yes Status: Acute Patient on Eliquis (7) Hypokalemia Current Visit: Yes Status: Acute 3.4 this AM. 60mEq PO ordered. Will recheck BMP this evening after repletion. (8) Alkalosis Current Visit: Yes Status: Acute Contraction alkalosis with bicarb of 30 today. Will continue to monitor. If continues to increase, may need a dose of diamox. Subjective Principal diagnosis: Aspiration of food bolus, acute respiratory failure Interval history: Patient seen and examined. Continues to be sedated and on vent. Yesterday evening the patient had a low potassium of 2.9. Dr. Boss was notified and potassium was replaced with 40mEq IV in addition to 60 of potassium elixir. 40mg of Lasix were ordered in addition to the calcium. The patient failed his spontaneous breathing trial again this morning. Objective PUL Vital signs: Last Vital Signs Temp 99.2 F 01/27/17 09:00 Pulse 97 01/27/17 09:00 Resp 16 01/27/17 09:53 BP 109/75 01/27/17 09:00 Pulse Ox 98 01/27/17 09:53 General appearance: other (sedated on vent) Eyes: nonicteric ENT: oropharynx moist Effort: normal Auscultation: bilateral: clear Cardiovascular: irregular rhythm, other (regular rate) Gastrointestinal: normoactive bowel sounds, non-distended Integumentary: normal Extremities: no cyanosis Musculoskeletal: no deformities other (sedated) Ventilator Settings Ventilator Settings: Ventilator Settings, Last 8 Hours Ventilator Mode VC+ Ventilator Mode VC+ Ventilator Mode VC+ Ventilator Mode VC+ Ventilator Mode CPAP Ventilator Mode VC+ Ventilator Mode VC+ Ventilator Mode VC+ Ventilator Mode VC+ Ventilator Mode VC+ Ventilator Mode VC+ Ventilator Mode VC+ Ventilator Tidal Volume 500 Setting Ventilator Tidal Volume 500 Setting Ventilator Tidal Volume 500 Setting Ventilator Tidal Volume 500 Setting Ventilator Tidal Volume 500 Setting Ventilator Tidal Volume 500 Setting Ventilator Tidal Volume 500 Setting Ventilator Tidal Volume 500 Setting Ventilator Tidal Volume 500 Setting Ventilator Tidal Volume 500 Setting Ventilator Tidal Volume 500 Setting Ventilator Respiratory Rate 16 Setting Ventilator Respiratory Rate 16 Setting Ventilator Respiratory Rate 16 Setting Ventilator Respiratory Rate 16 Setting Ventilator Respiratory Rate 16 Setting Ventilator Respiratory Rate 16 Setting Ventilator Respiratory Rate 16 Setting Ventilator Respiratory Rate 16 Setting Ventilator Respiratory Rate 16 Setting Ventilator Respiratory Rate 16 Setting Ventilator Respiratory Rate 16 Setting Actual Respiratory Rate 16 Actual Respiratory Rate 16 Actual Respiratory Rate 16 Actual Respiratory Rate 17 Actual Respiratory Rate 17 Actual Respiratory Rate 16 Actual Respiratory Rate 16 Actual Respiratory Rate 16 Actual Respiratory Rate 16 Actual Respiratory Rate 16 Positive End Expiratory 5 Pressure Positive End Expiratory 5 Pressure Positive End Expiratory 5 Pressure Positive End Expiratory 5 Pressure Positive End Expiratory 5 Pressure Positive End Expiratory 5 Pressure Positive End Expiratory 5 Pressure Positive End Expiratory 5 Pressure Positive End Expiratory 5 Pressure Positive End Expiratory 5 Pressure Positive End Expiratory 5 Pressure Positive End Expiratory 5 Pressure Peak Inspiratory Airway 28 Pressure Peak Inspiratory Airway 31 Pressure Peak Inspiratory Airway 34 Pressure Peak Inspiratory Airway 29 Pressure Peak Inspiratory Airway 24 Pressure Peak Inspiratory Airway 29 Pressure Peak Inspiratory Airway 25 Pressure Peak Inspiratory Airway 20 Pressure Peak Inspiratory Airway 27 Pressure Peak Inspiratory Airway 20 Pressure Peak Inspiratory Airway 37 Pressure Results - Laboratory Findings CBC and BMP: 01/27/17 03:01 01/27/17 03:01 ABG ABG pH 7.46 pH Units (7.32-7.45) H 01/27/17 04:35 ABG pCO2 53 mmHg (35-45) H 01/27/17 04:35 ABG pO2 57 mmHg (85-104) L 01/27/17 04:35 ABG O2 Saturation 91 % (95-98) L 01/27/17 04:35 PT/INR, D-dimer PT 12.6 Seconds (9.4-12.1) H 01/22/17 18:48 Abnormal lab findings: Abnormal lab results RBC 3.64 M/mcL (4.19-5.50) L 01/27/17 03:01 Hgb 10.5 g/dL (12.9-16.9) L 01/27/17 03:01 Hct 33.7 % (37.5-50.1) L 01/27/17 03:01 MCHC 31.2 g/dL (31.6-35.5) L 01/27/17 03:01 RDW 15.6 % (11.5-14.5) H 01/27/17 03:01 Immature Plt Fraction 8.6 % (1.1-6.1) H 01/26/17 07:40 PT 12.6 Seconds (9.4-12.1) H 01/22/17 18:48 APTT 36.1 Seconds (26.0-36.0) H 01/22/17 18:48 ABG pH 7.46 pH Units (7.32-7.45) H 01/27/17 04:35 ABG pCO2 53 mmHg (35-45) H 01/27/17 04:35 ABG pO2 57 mmHg (85-104) L 01/27/17 04:35 ABG HCO3 37.7 mEQ/L (21-27) H 01/27/17 04:35 ABG Total CO2 39.3 mEq/L (20-26) H 01/27/17 04:35 ABG O2 Saturation 91 % (95-98) L 01/27/17 04:35 ABG Base Excess 12.2 mEq/L (-2.0 to 3.0) H 01/27/17 04:35 Sodium 147 mEq/L (136-145) H 01/27/17 03:01 Potassium 3.4 mEq/L (3.5-4.5) L 01/27/17 03:01 Carbon Dioxide 30 mEq/L (19-29) H 01/27/17 03:01 Glucose 111 mg/dL (70-99) H 01/27/17 03:01 POC Glucose 104 (58-89) H 01/27/17 05:30 Calculated Osmolality 306 (280-300) H 01/27/17 03:01 Lactic Acid 2.4 mmol/L (0.5-2.2) H 01/23/17 00:50 B-Natriuretic Peptide 124 pg/mL (0-100) H 01/22/17 18:48 Albumin 3.0 g/dL (3.5-5.0) L 01/23/17 00:50 Globulin 3.8 g/dL (2.4-3.5) H 01/23/17 00:50 Albumin/Globulin Ratio 0.8 (1.1-2.2) L 01/23/17 00:50 Fluid Appearance Cloudy (Clear) A 01/23/17 09:44 - Microbiology Findings Microbiology Findings: Microbiology, Last 48 Hours 01/23/17 09:44 Gram Stain - Final Left Upper Lobe Lung Respiratory Culture - Final Normal upper respiratory tract viktoriya. No apparent pathogens isolated. 01/22/17 23:00 Sputum Culture - Final Sputum - Clinical Findings Intake & Output: Intake & Output 01/26/17 01/27/17 01/27/17 23:59 07:59 15:59 Intake Total 1115 / 1115 651 / 651 Output Total 600 / 600 950 / 950 100 / 100 Balance 515 / 515 -299 / -299 -80 / -80 Weight 111.13 kg Consult Discharge Plan - Plan Referrals: [facility] [Primary Care Provider] - - Attending Attestation I examined this patient and my medical decision-making was reviewed with the CARPET INSPECTOR FINISHED/PA/Advanced Practice Nurse/Resident Physician. I agree with the documented findings, disposition and treatment plan as described except to the extent set forth below.
[2017-01-27] MEDS ORDERED: Potassium Chloride Elixir 20 MEQ/15 ML UDC PO ONE (10:56)
[2017-01-27] MEDS: Sennosides/Docusate Sodium TABLET PO SCH ×2 (13:00→20:17)
[2017-01-27] MEDS: Bisacodyl 10 MG RECTAL SUPPOSITORY RC SCH (13:00)
[2017-01-27 15:48] LABS: BUN/Creatinine Ratio 17 (6-26); Blood Urea Nitrogen 16 mg/dL (8-26); Calcium 9.1 mg/dL (8.6-10.8); Carbon Dioxide 34 mEq/L (19-29); Chloride 106 mEq/L (98-109); Glucose 110 mg/dL (70-99); Osmolality,Calculated 306 (280-300); Potassium 3.7 mEq/L (3.5-4.5); Sodium 147 mEq/L (136-145); eGFR For African Americans > 60 (> 60); eGFR For Non-African Americans > 60 (> 60)
[2017-01-27] MEDS: FentaNYL (PF) 1,000 MCG in 0.9 % Sodium Chloride 80 ML IVC SCH (16:47)
[2017-01-27] MEDS: OLANZapine 5 MG TAB.RAPDIS PO SCH (20:17)
[2017-01-28] MEDS: Lacri-Lube 3.5 GM TUBE BOTH EYES SCH ×6 (03:21→23:18)
[2017-01-28 03:38] LABS: Basophils % 0.4 %; Eosinophils # 0.1 K/mcL (0.0-0.6); Eosinophils % 2.2 %; Hematocrit 32.9 % (37.5-50.1); Hemoglobin 10.1 g/dL (12.9-16.9); Immature Granulocytes % 0.5 % (0-4); Lymphocytes # 1.3 K/mcL (0.6-4.6); Lymphocytes % 22.4 %; Mean Corpuscular HGB Conc 30.7 g/dL (31.6-35.5); Mean Corpuscular Hemoglobin 28.8 pg (28.0-33.3); Mean Corpuscular Volume 93.7 fL (83.0-100.0); Mean Platelet Volume 11.6 fL (9.4-12.4); Monocytes # 0.4 K/mcL (0.0-1.3); Monocytes % 6.5 %; Neutrophils # 3.8 K/mcL (1.6-8.9); Platelet Count 161 K/mcL (140-400); Red Blood Count 3.51 M/mcL (4.19-5.50); Red Cell Distribution Width 15.8 % (11.5-14.5)
[2017-01-28 03:51] LABS: BUN/Creatinine Ratio 20 (6-26); Blood Urea Nitrogen 19 mg/dL (8-26); Carbon Dioxide 31 mEq/L (19-29); Chloride 106 mEq/L (98-109); Glucose 126 mg/dL (70-99); Osmolality,Calculated 306 (280-300); Potassium 3.3 mEq/L (3.5-4.5); Sodium 146 mEq/L (136-145); eGFR For African Americans > 60 (> 60); eGFR For Non-African Americans > 60 (> 60)
[2017-01-28] MEDS: Ipratropium/Albuterol Neb 3 ML IH SCH ×4 (03:53→22:26)
[2017-01-28 04:10] LABS: ABG HCO3 34.9 mEQ/L (21-27); ABG Oxygen Saturation 98 % (95-98); ABG PCO2 48 mmHg (35-45); ABG PH 7.47 pH Units (7.32-7.45); ABG PO2 101 mmHg (85-104); ABG TCO2 36.4 mEq/L (20-26); Blood Gas FiO2 30 %
[2017-01-28] MEDS: Insulin LISPRO 300 UNITS/3 ML VIAL SQ SCH ×3 (06:10→17:31)
[2017-01-28] MEDS: Valproic Acid Oral Soln 250 MG/5 ML UDC GTUBE SCH ×4 (06:12→23:16)
[2017-01-28] MEDS: Pantoprazole 40 MG VIAL IVP SCH (06:12)
[2017-01-28] MEDS ORDERED: Potassium Chloride Elixir 20 MEQ/15 ML UDC PO ONE (08:25)
[2017-01-28] MEDS ORDERED: Furosemide 40 MG/4 ML VIAL IVP ONE (08:25)
--- NOTE | 2017-01-28 08:29 | Pulmonology Progress Note ---
Date of Encounter: 01/28/17 Time of Encounter: 08:00 Assessment and Plan (1) Acute respiratory failure Current Visit: Yes Status: Acute Acute respiratory failure was secondary to aspiration of food bolus into his airway, bronchoscopy was done 01/23 and it showed copious, mucopurulent secretions were found throughout the tracheobronchial tree, they were partially obstructing the airway, a bronchoalveolar lavage was performed. The patient begins to show some improvement today. Down another 1.2L approximately yesterday. Additional dose of Lasix 40mg IV given this morning. (this is the 6th total dose ) Continue tube feedings until extubated. SSI low dose and accuchecks Q6hr. Continue diuresis for improved aeration of the lungs. Tamiflu has been discontinued as the course has been completed. Qualifiers: Respiratory failure complication: hypoxia Qualified Code(s): J96.01 - Acute respiratory failure with hypoxia (2) Mass of upper lobe of left lung Current Visit: Yes Status: Acute Bronchoscopy showed a medium-sized nearly obstructing, greater than 90% obstructed, fungating, congested, edematous, erythematous, vascular and raised lesion found which is about 5 cm from the bifurcation of the aguila in the left upper lobe. Endobronchial biopsies were performed of left upper lobe use and sent for histopathology examination. 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 Will need to discuss results with the patient after he is extubated. Family have not been present within the room. (3) Atrial fibrillation Current Visit: Yes Status: Acute Continue Eliquis. Heart rate has been controlled on lopressor 25mg. Episodes of tachycardia during spontaneous breathing trials. Improved since previous trials. Qualifiers: Atrial fibrillation type: unspecified Qualified Code(s): I48.91 - Unspecified atrial fibrillation (4) COPD (chronic obstructive pulmonary disease) Current Visit: Yes Status: Acute Duo neb treatments MARQUES. Qualifiers: COPD type: unspecified COPD Qualified Code(s): J44.9 - Chronic obstructive pulmonary disease, unspecified (5) DVT prophylaxis Current Visit: Yes Status: Acute Patient on Eliquis (6) Hypokalemia Current Visit: Yes Status: Acute 3.3 this AM. 60mEq PO ordered. Will recheck BMP this evening after repletion. Continue to monitor and replace as needed. (7) Alkalosis Current Visit: Yes Status: Acute Contraction alkalosis with bicarb of 31 today. Will continue to monitor. If continues to increase, may need a dose of diamox. Subjective Principal diagnosis: Aspiration of food bolus, acute respiratory failure Interval history: Patient seen and examined. On spontaneous breathing trial at this time, able to follow commands. Has episodes of tachycardia up to 118 during breathing trial, but returns back to normal rate. Patient improving with diuresis and potassium replacement. Objective PUL Vital signs: Last Vital Signs Temp 98.4 F 01/28/17 07:00 Pulse 95 01/28/17 07:00 Resp 26 01/28/17 07:29 BP 113/74 01/28/17 07:29 Pulse Ox 94 01/28/17 07:29 General appearance: no acute distress, other Eyes: nonicteric ENT: oropharynx moist Neck: supple Effort: normal Auscultation: bilateral: clear Cardiovascular: other (heart rate fluctuating from 90-118 while patient being examined) Gastrointestinal: normoactive bowel sounds, non-tender, non-distended Integumentary: normal Extremities: no cyanosis Musculoskeletal: no deformities other (patient able to follow commands) Ventilator Settings Ventilator Settings: Ventilator Settings, Last 8 Hours Ventilator Mode CPAP Ventilator Mode CPAP Ventilator Mode VC+ Ventilator Mode VC+ Ventilator Mode VC+ Ventilator Mode VC+ Ventilator Mode VC+ Ventilator Mode VC+ Ventilator Mode VC+ Ventilator Mode VC+ Ventilator Mode VC+ Ventilator Mode VC+ Ventilator Tidal Volume 500 Setting Ventilator Tidal Volume 500 Setting Ventilator Tidal Volume 500 Setting Ventilator Tidal Volume 500 Setting Ventilator Tidal Volume 500 Setting Ventilator Tidal Volume 500 Setting Ventilator Tidal Volume 500 Setting Ventilator Tidal Volume 500 Setting Ventilator Tidal Volume 500 Setting Ventilator Tidal Volume 500 Setting Ventilator Tidal Volume 500 Setting Ventilator Respiratory Rate 16 Setting Ventilator Respiratory Rate 16 Setting Ventilator Respiratory Rate 16 Setting Ventilator Respiratory Rate 16 Setting Ventilator Respiratory Rate 16 Setting Ventilator Respiratory Rate 16 Setting Ventilator Respiratory Rate 16 Setting Ventilator Respiratory Rate 16 Setting Ventilator Respiratory Rate 16 Setting Ventilator Respiratory Rate 16 Setting Actual Respiratory Rate 20 Actual Respiratory Rate 26 Actual Respiratory Rate 19 Actual Respiratory Rate 16 Actual Respiratory Rate 16 Actual Respiratory Rate 16 Actual Respiratory Rate 16 Actual Respiratory Rate 16 Actual Respiratory Rate 16 Actual Respiratory Rate 18 Actual Respiratory Rate 16 Positive End Expiratory 5 Pressure Positive End Expiratory 5 Pressure Positive End Expiratory 5 Pressure Positive End Expiratory 5 Pressure Positive End Expiratory 5 Pressure Positive End Expiratory 5 Pressure Positive End Expiratory 5 Pressure Positive End Expiratory 5 Pressure Positive End Expiratory 5 Pressure Positive End Expiratory 5 Pressure Positive End Expiratory 5 Pressure Positive End Expiratory 5 Pressure Peak Inspiratory Airway 16 Pressure Peak Inspiratory Airway 15 Pressure Peak Inspiratory Airway 21 Pressure Peak Inspiratory Airway 22 Pressure Peak Inspiratory Airway 27 Pressure Peak Inspiratory Airway 31 Pressure Peak Inspiratory Airway 36 Pressure Peak Inspiratory Airway 25 Pressure Peak Inspiratory Airway 24 Pressure Peak Inspiratory Airway 27 Pressure Peak Inspiratory Airway 26 Pressure Results - Laboratory Findings CBC and BMP: 01/28/17 03:24 01/28/17 03:24 ABG ABG pH 7.47 pH Units (7.32-7.45) H 01/28/17 04:01 ABG pCO2 48 mmHg (35-45) H 01/28/17 04:01 ABG pO2 101 mmHg (85-104) 01/28/17 04:01 ABG O2 Saturation 98 % (95-98) 01/28/17 04:01 PT/INR, D-dimer PT 12.6 Seconds (9.4-12.1) H 01/22/17 18:48 Abnormal lab findings: Abnormal lab results RBC 3.51 M/mcL (4.19-5.50) L 01/28/17 03:24 Hgb 10.1 g/dL (12.9-16.9) L 01/28/17 03:24 Hct 32.9 % (37.5-50.1) L 01/28/17 03:24 MCHC 30.7 g/dL (31.6-35.5) L 01/28/17 03:24 RDW 15.8 % (11.5-14.5) H 01/28/17 03:24 Immature Plt Fraction 8.6 % (1.1-6.1) H 01/26/17 07:40 PT 12.6 Seconds (9.4-12.1) H 01/22/17 18:48 APTT 36.1 Seconds (26.0-36.0) H 01/22/17 18:48 ABG pH 7.47 pH Units (7.32-7.45) H 01/28/17 04:01 ABG pCO2 48 mmHg (35-45) H 01/28/17 04:01 ABG HCO3 34.9 mEQ/L (21-27) H 01/28/17 04:01 ABG Total CO2 36.4 mEq/L (20-26) H 01/28/17 04:01 ABG Base Excess 10.0 mEq/L (-2.0 to 3.0) H 01/28/17 04:01 Sodium 146 mEq/L (136-145) H 01/28/17 03:24 Potassium 3.3 mEq/L (3.5-4.5) L 01/28/17 03:24 Carbon Dioxide 31 mEq/L (19-29) H 01/28/17 03:24 Glucose 126 mg/dL (70-99) H 01/28/17 03:24 POC Glucose 128 (58-89) H 01/28/17 06:09 Calculated Osmolality 306 (280-300) H 01/28/17 03:24 Lactic Acid 2.4 mmol/L (0.5-2.2) H 01/23/17 00:50 B-Natriuretic Peptide 124 pg/mL (0-100) H 01/22/17 18:48 Albumin 3.0 g/dL (3.5-5.0) L 01/23/17 00:50 Globulin 3.8 g/dL (2.4-3.5) H 01/23/17 00:50 Albumin/Globulin Ratio 0.8 (1.1-2.2) L 01/23/17 00:50 Fluid Appearance Cloudy (Clear) A 01/23/17 09:44 - Clinical Findings Intake & Output: Intake & Output 01/27/17 01/28/17 01/28/17 23:59 07:59 15:59 Intake Total 499 / 499 504 / 504 Output Total 350 / 350 Balance 499 / 499 154 / 154 Weight 110.3 kg Consult Discharge Plan - Plan Referrals: [facility] [Primary Care Provider] - - Attending Attestation I examined this patient and my medical decision-making was reviewed with the SURGICAL ATTENDANT/PA/Advanced Practice Nurse/Resident Physician. I agree with the documented findings, disposition and treatment plan as described except to the extent set forth below.
[2017-01-28] MEDS: APIXABAN 5 MG TABLET PO SCH ×2 (08:41→19:56)
[2017-01-28] MEDS: Bisacodyl 10 MG RECTAL SUPPOSITORY RC SCH (08:41)
[2017-01-28] MEDS: Sennosides/Docusate Sodium TABLET PO SCH ×2 (08:41→19:56)
[2017-01-28] MEDS: Finasteride 5 MG TABLET PO SCH (08:41)
[2017-01-28] MEDS: Chlorhexidine Rinse 15 ML MOUTHWASH MM SCH ×2 (08:41→19:56)
[2017-01-28] MEDS: Aspirin 81 MG TAB.CHEW PO SCH (08:41)
[2017-01-28] MEDS ORDERED: Potassium Chloride Elixir 20 MEQ/15 ML UDC GTUBE ONE (17:01)
[2017-01-28 17:48] LABS: BUN/Creatinine Ratio 19 (6-26); Blood Urea Nitrogen 19 mg/dL (8-26); Calcium 9.4 mg/dL (8.6-10.8); Carbon Dioxide 33 mEq/L (19-29); Chloride 105 mEq/L (98-109); Glucose 107 mg/dL (70-99); Osmolality,Calculated 305 (280-300); Potassium 3.7 mEq/L (3.5-4.5); Sodium 146 mEq/L (136-145); eGFR For African Americans > 60 (> 60); eGFR For Non-African Americans > 60 (> 60)
[2017-01-28] MEDS: FentaNYL (PF) 1,000 MCG in 0.9 % Sodium Chloride 80 ML IVC SCH ×2 (19:55→19:56)
[2017-01-28] MEDS: OLANZapine 5 MG TAB.RAPDIS PO SCH (19:56)
[2017-01-29] MEDS: Insulin LISPRO 300 UNITS/3 ML VIAL SQ SCH ×4 (00:25→18:01)
[2017-01-29] MEDS: Ipratropium/Albuterol Neb 3 ML IH SCH ×4 (04:04→21:29)
[2017-01-29 04:24] LABS: Basophils % 0.4 %; Eosinophils # 0.1 K/mcL (0.0-0.6); Eosinophils % 2.5 %; Hemoglobin 10.8 g/dL (12.9-16.9); Immature Granulocytes % 0.6 % (0-4); Lymphocytes # 1.3 K/mcL (0.6-4.6); Lymphocytes % 26.6 %; Mean Corpuscular HGB Conc 30.9 g/dL (31.6-35.5); Mean Corpuscular Volume 94.1 fL (83.0-100.0); Mean Platelet Volume 11.6 fL (9.4-12.4); Monocytes # 0.4 K/mcL (0.0-1.3); Monocytes % 7.4 %; Neutrophils # 3.1 K/mcL (1.6-8.9); Platelet Count 159 K/mcL (140-400); Red Blood Count 3.72 M/mcL (4.19-5.50); Red Cell Distribution Width 15.6 % (11.5-14.5); Segmented Neutrophils % 62.5 %
[2017-01-29 04:39] LABS: BUN/Creatinine Ratio 24 (6-26); Blood Urea Nitrogen 21 mg/dL (8-26); Calcium 9.2 mg/dL (8.6-10.8); Carbon Dioxide 33 mEq/L (19-29); Chloride 105 mEq/L (98-109); Glucose 128 mg/dL (70-99); Osmolality,Calculated 305 (280-300); Potassium 3.2 mEq/L (3.5-4.5); Sodium 145 mEq/L (136-145); eGFR For African Americans > 60 (> 60); eGFR For Non-African Americans > 60 (> 60)
[2017-01-29 04:52] LABS: ABG Base Excess 11.7 mEq/L (-2.0 to 3.0); ABG HCO3 37.5 mEQ/L (21-27); ABG Oxygen Saturation 87 % (95-98); ABG PCO2 54 mmHg (35-45); ABG PH 7.45 pH Units (7.32-7.45); ABG PO2 51 mmHg (85-104); ABG TCO2 39.2 mEq/L (20-26)
[2017-01-29 04:53] LABS: Blood Gas FiO2 30 %
[2017-01-29] MEDS: Pantoprazole 40 MG VIAL IVP SCH (05:21)
[2017-01-29] MEDS: Valproic Acid Oral Soln 250 MG/5 ML UDC GTUBE SCH ×4 (05:21→23:05)
[2017-01-29] MEDS: Lacri-Lube 3.5 GM TUBE BOTH EYES SCH ×6 (05:23→23:05)
[2017-01-29] MEDS: FentaNYL (PF) 1,000 MCG in 0.9 % Sodium Chloride 80 ML IVC SCH (05:36)
[2017-01-29] MEDS ORDERED: Potassium Chloride Elixir 20 MEQ/15 ML UDC GTUBE ONE (07:37)
[2017-01-29] MEDS ORDERED: Furosemide 40 MG/4 ML VIAL IVP ONE ×2 (07:38→17:22)
[2017-01-29] MEDS: Finasteride 5 MG TABLET PO SCH (08:34)
[2017-01-29] MEDS: Chlorhexidine Rinse 15 ML MOUTHWASH MM SCH ×2 (08:34→21:07)
[2017-01-29] MEDS: Bisacodyl 10 MG RECTAL SUPPOSITORY RC SCH (08:34)
[2017-01-29] MEDS: Sennosides/Docusate Sodium TABLET PO SCH ×2 (08:34→21:07)
[2017-01-29] MEDS: Aspirin 81 MG TAB.CHEW PO SCH (08:34)
[2017-01-29] MEDS: APIXABAN 5 MG TABLET PO SCH ×2 (08:34→21:07)
--- NOTE | 2017-01-29 08:58 | Pulmonology Progress Note ---
<Shamir Baumann - Last Filed: 01/29/17 10:44> Date of Encounter: 01/29/17 Time of Encounter: 08:15 Assessment and Plan (1) Acute respiratory failure Current Visit: Yes Status: Acute Acute respiratory failure was secondary to aspiration of food bolus into his airway, bronchoscopy was done 01/23 and it showed copious, mucopurulent secretions were found throughout the tracheobronchial tree, they were partially obstructing the airway, a bronchoalveolar lavage was performed. The patient begins to show some improvement today. Down another 1L approximately yesterday. Net total +5.4, was +10 on 01/25/17. Additional dose of Lasix 40mg IV given this morning. (this is the 7th total dose ) Continue tube feedings until extubated. SSI low dose and accuchecks Q6hr. Continue diuresis for improved aeration of the lungs. Propofol and fentanyl both currently off for possibility of extubation today. Qualifiers: Respiratory failure complication: hypoxia Qualified Code(s): J96.01 - Acute respiratory failure with hypoxia (2) Mass of upper lobe of left lung Current Visit: Yes Status: Acute Bronchoscopy showed a medium-sized nearly obstructing, greater than 90% obstructed, fungating, congested, edematous, erythematous, vascular and raised lesion found which is about 5 cm from the bifurcation of the aguila in the left upper lobe. Endobronchial biopsies were performed of left upper lobe use and sent for histopathology examination. 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 Will need to discuss results with the patient after he is extubated. Family have not been present within the room. (3) Atrial fibrillation Current Visit: Yes Status: Acute Continue Eliquis. Heart rate has been controlled on lopressor 25mg. Episodes of tachycardia during spontaneous breathing trials. Improved since previous trials. Continuing to improve with fewer tachycardic episodes. Qualifiers: Atrial fibrillation type: unspecified Qualified Code(s): I48.91 - Unspecified atrial fibrillation (4) COPD (chronic obstructive pulmonary disease) Current Visit: Yes Status: Acute Duo neb treatments MARQUES. Qualifiers: COPD type: unspecified COPD Qualified Code(s): J44.9 - Chronic obstructive pulmonary disease, unspecified (5) DVT prophylaxis Current Visit: Yes Status: Acute Patient on Eliquis (6) Hypokalemia Current Visit: Yes Status: Acute 3.2 this AM. 60mEq PO ordered. Will recheck BMP this afternoon after repletion. Continue to monitor and replace as needed. (7) Alkalosis Current Visit: Yes Status: Acute Contraction alkalosis with bicarb of 33 today. Will continue to monitor. Patient was given a dose of diamox on 01/27 and 01/28. Will recheck this afternoon and treat as needed. Subjective Principal diagnosis: Aspiration of food bolus, acute respiratory failure Interval history: Patient seen and examined. On spontaneous breathing trial at this time, able to follow commands. Heart rates have been within the normal range today during CPAP settings on his vent. Patient continues to improve with diuresis and potassium replacement. Approximately +5.6L at this time, was +10L on 01/25/17. Objective PUL Vital signs: Last Vital Signs Temp 97.8 F 01/29/17 07:50 Pulse 89 01/29/17 08:00 Resp 18 01/29/17 08:00 BP 134/84 01/29/17 08:00 Pulse Ox 93 01/29/17 08:00 General appearance: no acute distress Eyes: nonicteric ENT: oropharynx moist Neck: supple Effort: normal Auscultation: bilateral: clear Cardiovascular: regular rate and rhythm Gastrointestinal: hypoactive bowel sounds, non-tender Integumentary: normal Extremities: no cyanosis other (able to follow commands) Ventilator Settings Ventilator Settings: Ventilator Settings, Last 8 Hours Ventilator Mode CPAP Ventilator Mode VC+ Ventilator Mode VC+ Ventilator Mode VC+ Ventilator Mode VC+ Ventilator Mode VC+ Ventilator Mode VC+ Ventilator Mode VC+ Ventilator Mode VC+ Ventilator Mode VC+ Ventilator Tidal Volume 500 Setting Ventilator Tidal Volume 500 Setting Ventilator Tidal Volume 500 Setting Ventilator Tidal Volume 500 Setting Ventilator Tidal Volume 500 Setting Ventilator Tidal Volume 500 Setting Ventilator Tidal Volume 500 Setting Ventilator Tidal Volume 500 Setting Ventilator Tidal Volume 500 Setting Ventilator Respiratory Rate 16 Setting Ventilator Respiratory Rate 16 Setting Ventilator Respiratory Rate 16 Setting Ventilator Respiratory Rate 16 Setting Ventilator Respiratory Rate 16 Setting Ventilator Respiratory Rate 16 Setting Ventilator Respiratory Rate 16 Setting Ventilator Respiratory Rate 16 Setting Ventilator Respiratory Rate 16 Setting Actual Respiratory Rate 18 Actual Respiratory Rate 16 Actual Respiratory Rate 16 Actual Respiratory Rate 16 Actual Respiratory Rate 16 Actual Respiratory Rate 16 Actual Respiratory Rate 16 Actual Respiratory Rate 16 Positive End Expiratory 5 Pressure Positive End Expiratory 5 Pressure Positive End Expiratory 5 Pressure Positive End Expiratory 5 Pressure Positive End Expiratory 5 Pressure Positive End Expiratory 5 Pressure Positive End Expiratory 5 Pressure Positive End Expiratory 5 Pressure Positive End Expiratory 5 Pressure Positive End Expiratory 5 Pressure Peak Inspiratory Airway 15 Pressure Peak Inspiratory Airway 16 Pressure Peak Inspiratory Airway 22 Pressure Peak Inspiratory Airway 26 Pressure Peak Inspiratory Airway 25 Pressure Peak Inspiratory Airway 26 Pressure Peak Inspiratory Airway 24 Pressure Peak Inspiratory Airway 22 Pressure Peak Inspiratory Airway 22 Pressure Results - Laboratory Findings CBC and BMP: 01/29/17 04:10 01/29/17 04:10 ABG ABG pH 7.45 pH Units (7.32-7.45) 01/29/17 04:31 ABG pCO2 54 mmHg (35-45) H 01/29/17 04:31 ABG pO2 51 mmHg (85-104) L 01/29/17 04:31 ABG O2 Saturation 87 % (95-98) L 01/29/17 04:31 PT/INR, D-dimer PT 12.6 Seconds (9.4-12.1) H 01/22/17 18:48 Abnormal lab findings: Abnormal lab results RBC 3.72 M/mcL (4.19-5.50) L 01/29/17 04:10 Hgb 10.8 g/dL (12.9-16.9) L 01/29/17 04:10 Hct 35.0 % (37.5-50.1) L 01/29/17 04:10 MCHC 30.9 g/dL (31.6-35.5) L 01/29/17 04:10 RDW 15.6 % (11.5-14.5) H 01/29/17 04:10 Immature Plt Fraction 8.6 % (1.1-6.1) H 01/26/17 07:40 PT 12.6 Seconds (9.4-12.1) H 01/22/17 18:48 APTT 36.1 Seconds (26.0-36.0) H 01/22/17 18:48 ABG pCO2 54 mmHg (35-45) H 01/29/17 04:31 ABG pO2 51 mmHg (85-104) L 01/29/17 04:31 ABG HCO3 37.5 mEQ/L (21-27) H 01/29/17 04:31 ABG Total CO2 39.2 mEq/L (20-26) H 01/29/17 04:31 ABG O2 Saturation 87 % (95-98) L 01/29/17 04:31 ABG Base Excess 11.7 mEq/L (-2.0 to 3.0) H 01/29/17 04:31 Potassium 3.2 mEq/L (3.5-4.5) L 01/29/17 04:10 Carbon Dioxide 33 mEq/L (19-29) H 01/29/17 04:10 Glucose 128 mg/dL (70-99) H 01/29/17 04:10 POC Glucose 141 (58-89) H 01/29/17 00:42 Calculated Osmolality 305 (280-300) H 01/29/17 04:10 Lactic Acid 2.4 mmol/L (0.5-2.2) H 01/23/17 00:50 B-Natriuretic Peptide 124 pg/mL (0-100) H 01/22/17 18:48 Albumin 3.0 g/dL (3.5-5.0) L 01/23/17 00:50 Globulin 3.8 g/dL (2.4-3.5) H 01/23/17 00:50 Albumin/Globulin Ratio 0.8 (1.1-2.2) L 01/23/17 00:50 Fluid Appearance Cloudy (Clear) A 01/23/17 09:44 - Clinical Findings Intake & Output: Intake & Output 01/28/17 01/29/17 01/29/17 23:59 07:59 15:59 Intake Total 664 / 664 446 / 446 Output Total 250 / 250 200 / 200 Balance 414 / 414 246 / 246 Weight 107 kg Consult Discharge Plan - Plan Referrals: [facility] [Primary Care Provider] - - Attending Attestation I examined this patient and my medical decision-making was reviewed with the MICROBIOLOGY TECHNICIAN/PA/Advanced Practice Nurse/Resident Physician. I agree with the documented findings, disposition and treatment plan as described except to the extent set forth below. <Hubert Boss - Last Filed: 01/29/17 14:09> Date of Encounter: 01/29/17 Objective PUL Vital signs: Last Vital Signs Temp 98.8 F 01/29/17 11:00 Pulse 104 01/29/17 13:00 Resp 24 01/29/17 13:00 BP 131/86 01/29/17 13:00 Pulse Ox 98 01/29/17 13:00 Ventilator Settings Ventilator Settings: Ventilator Settings, Last 8 Hours Ventilator Mode CPAP Ventilator Mode CPAP Ventilator Mode CPAP Ventilator Mode CPAP Ventilator Mode CPAP Ventilator Mode CPAP Ventilator Respiratory Rate 16 Setting Actual Respiratory Rate 24 Actual Respiratory Rate 24 Actual Respiratory Rate 19 Actual Respiratory Rate 20 Actual Respiratory Rate 25 Actual Respiratory Rate 18 Positive End Expiratory 5 Pressure Positive End Expiratory 5 Pressure Positive End Expiratory 5 Pressure Positive End Expiratory 5 Pressure Positive End Expiratory 5 Pressure Positive End Expiratory 5 Pressure Peak Inspiratory Airway 15 Pressure Peak Inspiratory Airway 15 Pressure Peak Inspiratory Airway 17 Pressure Peak Inspiratory Airway 17 Pressure Peak Inspiratory Airway 16 Pressure Peak Inspiratory Airway 15 Pressure Results - Laboratory Findings CBC and BMP: 01/29/17 04:10 01/29/17 04:10 ABG ABG pH 7.45 pH Units (7.32-7.45) 01/29/17 04:31 ABG pCO2 54 mmHg (35-45) H 01/29/17 04:31 ABG pO2 51 mmHg (85-104) L 01/29/17 04:31 ABG O2 Saturation 87 % (95-98) L 01/29/17 04:31 PT/INR, D-dimer PT 12.6 Seconds (9.4-12.1) H 01/22/17 18:48 Abnormal lab findings: Abnormal lab results RBC 3.72 M/mcL (4.19-5.50) L 01/29/17 04:10 Hgb 10.8 g/dL (12.9-16.9) L 01/29/17 04:10 Hct 35.0 % (37.5-50.1) L 01/29/17 04:10 MCHC 30.9 g/dL (31.6-35.5) L 01/29/17 04:10 RDW 15.6 % (11.5-14.5) H 01/29/17 04:10 Immature Plt Fraction 8.6 % (1.1-6.1) H 01/26/17 07:40 PT 12.6 Seconds (9.4-12.1) H 01/22/17 18:48 APTT 36.1 Seconds (26.0-36.0) H 01/22/17 18:48 ABG pCO2 54 mmHg (35-45) H 01/29/17 04:31 ABG pO2 51 mmHg (85-104) L 01/29/17 04:31 ABG HCO3 37.5 mEQ/L (21-27) H 01/29/17 04:31 ABG Total CO2 39.2 mEq/L (20-26) H 01/29/17 04:31 ABG O2 Saturation 87 % (95-98) L 01/29/17 04:31 ABG Base Excess 11.7 mEq/L (-2.0 to 3.0) H 01/29/17 04:31 Potassium 3.2 mEq/L (3.5-4.5) L 01/29/17 04:10 Carbon Dioxide 33 mEq/L (19-29) H 01/29/17 04:10 Glucose 128 mg/dL (70-99) H 01/29/17 04:10 POC Glucose 107 (58-89) H 01/29/17 10:57 Calculated Osmolality 305 (280-300) H 01/29/17 04:10 Lactic Acid 2.4 mmol/L (0.5-2.2) H 01/23/17 00:50 B-Natriuretic Peptide 124 pg/mL (0-100) H 01/22/17 18:48 Albumin 3.0 g/dL (3.5-5.0) L 01/23/17 00:50 Globulin 3.8 g/dL (2.4-3.5) H 01/23/17 00:50 Albumin/Globulin Ratio 0.8 (1.1-2.2) L 01/23/17 00:50 Fluid Appearance Cloudy (Clear) A 01/23/17 09:44 - Clinical Findings Intake & Output: Intake & Output 01/28/17 01/29/17 01/29/17 23:59 07:59 15:59 Intake Total 664 / 664 446 / 446 / 12 Output Total 250 / 250 200 / 200 1200 / 1200 Balance 414 / 414 246 / 246 -1188 / -1188 Weight 107 kg - Attending Attestation I have seen and examined the patient, reviewed all pertinent labs, reviewed all imaging. I discussed the case multidisciplinary rounds. Resonance tone is above with the following additions. [employer]: Currently sedated with propofol and fentanyl will perform daily wake up today. Pulmonary: Respiratory failure due to likely aspiration event. Patient tolerating spontaneous breathing trial well today. However, not ready for extubation attempt most likely owing to overall increased volume status. We will continue with aggressive diuresis and readdress extubation tomorrow. If unable to be extubated by the end of the weekend, will likely benefit from tracheostomy. Cardiovascular: Hemodynamically stable. No acute issues. Nephrology: Approximately 10 L volume up for duration of stay. Responding well to aggressive diuresis and able to be net negative approximately 1-2 L each of the past 3 days. Now overall now overall I know approximately 4-5 L for length of stay. Continue with aggressive diuresis as long as renal function tolerates. Has a contraction alkalosis and we will repeat Diamox as needed. GI: Tolerating tube feedings well. No acute events. ID: No evidence acute infection. No acute issues. HO: Biopsy of left upper lobe endobronchial mass shows high-grade squamous metaplasia. Will discuss further with patient and family once extubated. Endo: No acute issues MS: No acute issues Disposition patient remains in ICU. Total critical care time 35 minutes.
[2017-01-29] MEDS ORDERED: Scopolamine Patch 1.5 MG PATCH.TD72 TD ONE (13:48)
[2017-01-29 15:16] LABS: BUN/Creatinine Ratio 23 (6-26); Blood Urea Nitrogen 21 mg/dL (8-26); Calcium 9.4 mg/dL (8.6-10.8); Carbon Dioxide 33 mEq/L (19-29); Chloride 104 mEq/L (98-109); Glucose 106 mg/dL (70-99); Osmolality,Calculated 301 (280-300); Potassium 3.6 mEq/L (3.5-4.5); Sodium 144 mEq/L (136-145); eGFR For African Americans > 60 (> 60); eGFR For Non-African Americans > 60 (> 60)
--- NOTE | 2017-01-29 15:17 | Palliative - Consult Note ---
Date of Encounter: 01/29/17 Time of Encounter: 15:15 - Assessment and Plan (1) Goals of care, counseling/discussion Current Visit: Yes Status: Acute Assessment and plan: Plan for family meeting to discuss goals of care tomorrow 01/30/17. (2) Dyspnea Current Visit: Yes Status: Acute Assessment and plan: Patient continues on ventilator support. SBT stopped this afternoon due to agitation and restlessness. Sedation managed per ICU guidelines. Qualifiers: Dyspnea type: unspecified Qualified Code(s): R06.00 - Dyspnea, unspecified (3) Acute respiratory failure Current Visit: Yes Status: Acute Qualifiers: Respiratory failure complication: hypoxia Qualified Code(s): J96.01 - Acute respiratory failure with hypoxia (4) Aspiration into lower respiratory tract Current Visit: Yes Status: Acute Qualifiers: Encounter type: initial encounter Qualified Code(s): T17.800A - Unspecified foreign body in other parts of respiratory tract causing asphyxiation, initial encounter Palliative-CN HPI - Data of Consult Patient: new to practice Consult date: 01/29/17 Requesting Physician: Akhil Tam Primary Care Provider: [facility] - Consult Narrative Palliative Care/Comfort Measures: Palliative care Reason for consult: Goals of care History of present illness: Mr. Pastrana is a 76 year old male patient presenting to [facility] from the [facility]. The patient is intubated on mechanical ventilation, and information was taken from the medical record. According to documentation, Mr. Pastrana was eating a meal and developed respiratory distress. He was hypoxic with an oxygen saturation was 37%. After intervention of respiratory therapist (suction , supplemental oxygen), saturations increased to 79%. He continued to have hypoxia, tachypnea, and tachycardia. He was transferred to [facility] emergency department for further care. He was intubated in the emergency department and found to have food particles on his vocal cords. After stabilization, Mr. Pastrana was transferred to the ICU for further care. A bronchoscopy was completed on 01/23/17 revealing copious amounts of secretions and a medium sized fungating, congested, erythematous, lesions was found in the left upper lobe. Biopsy later revealed squamous mucosa with high-grade dysplasia. He has not been weaned from the ventilator given his copious secretions and increasing agitation. The palliative care team was consulted to assist with goals of care planning given chronic medical conditions. According to documentation, Mr. Pastrana is a half-way patient at the [facility]. He is on a dysphasia diet at baseline. Family is not available at bedside, but plan to be present for meeting tomorrow. 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[facility]) Activity Level: Mostly sedentary - Family History Mother History Unknown: Yes Father History Unknown: Yes Medications and Allergies Acetaminophen [Acetaminophen ER] 650 mg PO TID 01/22/17 [History] Apixaban [Eliquis] 5 mg PO BID 01/22/17 [History] Aspirin Enteric Coated [Aspirin EC] 81 mg PO DAILY 01/22/17 [History] Bisacodyl [Dulcolax] 10 mg RC DAILY PRN 01/22/17 [History] Budesonide/Formoterol 80/4.5 [Symbicort 80/4.5] 2 puff IH BIDR 01/22/17 [ History] Divalproex Sodium [Depakote] 250 mg PO DAILY 01/22/17 [History] Docusate Sodium [Colace] 100 mg PO BID 01/22/17 [History] Finasteride [Proscar] 5 mg PO DAILY 01/22/17 [History] Furosemide [Lasix] 40 mg PO BID 01/22/17 [History] Guaifenesin [Tab Tussin] 400 mg PO TID PRN 01/22/17 [History] Ipratropium/Albuterol Neb [Duoneb] 3 ml IH Q4HR 01/22/17 [History] Lisinopril 2.5 mg PO HS 01/22/17 [History] Metoprolol Succinate 150 mg PO DAILY 01/22/17 [History] Mineral Oil/Petrolatum,White [Eucerin Creme] 1 appl TP BID PRN 01/22/17 [History ] Multivitamin with Minerals [One-A-Day Maximum Formula] 1 tab PO DAILY 01/22/17 [ History] Nitroglycerin [Nitrostat] 0.4 mg SL AD PRN 01/22/17 [History] Nystatin POWDER [Nystop] 1 appl TP Q4H PRN 01/22/17 [History] OLANZapine [Zyprexa] 5 mg PO HS 01/22/17 [History] Ondansetron HCl [Zofran] 4 mg PO Q6H PRN 01/22/17 [History] Polyethylene Glycol 3350 [Smoothlax] 17 gm PO DAILY 01/22/17 [History] Polyvinyl Alcohol [Artificial Tears] 2 drop OP QID PRN 01/22/17 [History] Potassium Chloride [K-Tab ER] 20 meq PO DAILY MDD WITH LASIX 01/22/17 [History] Ranitidine HCl [Acid Data Collector] 150 mg PO BID 01/22/17 [History] Sennosides [Senna] 17.2 mg PO DAILY 01/22/17 [History] TraZODone 25 mg PO HS 01/22/17 [History] Ursodiol 300 mg PO BID 01/22/17 [History] Allergies No Known Allergies Allergy (Verified 01/22/17 18:54) ROS unobtainable: due to endotracheal tube Palliative Care-Exam - Constitutional Vitals: Temp Pulse Resp BP Pulse Ox 98.8 F 116 17 124/89 94 01/29/17 11:00 01/29/17 15:00 01/29/17 15:00 01/29/17 15:00 01/29/17 15:00 Exam: 76 year old male appearing age appropriate. Currently intubated on mechanical ventilation. Opens eyes, follows commands, attempts communication - Head Head Exam: Present: atraumatic - Eye Eye exam: Present: EOMI Pupils: Present: PERRL - ENT ENT exam: Present: mucous membranes moist - Expanded ENT Exam Mouth Exam: Present: drooling (ET tube in place, patient resists oral suctioning ) Teeth exam: Present: edentulous - Expanded Neck Exam Neck exam: Absent: tracheal deviation - Respiratory Respiratory exam: Present: wheezes. Absent: accessory muscle use, respiratory distress, rhonchi, tachypnea - Expanded Respiratory Exam Location: wheezes: Left, Upper, Right - Cardiovascular Cardiovascular exam: Present: irregular rhythm - GI/Abdominal Exam GI/Abdominal exam: Present: normal bowel sounds, soft. Absent: distended, firm , tenderness - Rectal Rectal Exam: Present: deferred - Catheter Type: Urethral (Mosley) - Extremities Exam Extremities exam: Present: normal inspection. Absent: pedal edema - Neurological Exam Neurological exam: Present: alert (follows commands, attempts communication but ET tube limits), no focal deficits, strengths equal and symetr throughout - Psychiatric Psychiatric exam: Absent: agitated, anxious - Skin Skin exam: Present: dry, warm Additional comments: dressing to buttocks intact Internal Medicine - CN: Reslt - Labs CBC & Chem 7: 01/29/17 04:10 01/29/17 04:10 Labs: Short CBC 01/29/17 Range/Units 04:10 WBC 4.9 (4.3-11.1) K/mcL Hgb 10.8 L (12.9-16.9) g/dL Hct 35.0 L (37.5-50.1) % Plt Count 159 (140-400) K/mcL Neutrophils # 3.1 (1.6-8.9) K/mcL BMP 01/28/17 01/29/17 16:14 04:10 Sodium 146 H 145 Potassium 3.7 3.2 L Chloride 105 105 Carbon Dioxide 33 H 33 H BUN 19 21 Creatinine 1.02 0.89 Glucose 107 H 128 H Calcium 9.4 9.2 - ABG Interpretation ABG results: ABG ABG pH 7.45 pH Units (7.32-7.45) 01/29/17 04:31 ABG pCO2 54 mmHg (35-45) H 01/29/17 04:31 ABG pO2 51 mmHg (85-104) L 01/29/17 04:31 ABG O2 Saturation 87 % (95-98) L 01/29/17 04:31 PT/INR, D-dimer PT 12.6 Seconds (9.4-12.1) H 01/22/17 18:48 Consult Discharge Plan - Plan Referrals: [facility] [Primary Care Provider] - Palliative Quality Palliative Quality: Screen for Code Status: NA (pending family meeting 01/30/17) , Screen for Goals of Care: NA (pending family meeting 01/30/17), Screen for Pain : Yes, If Pain Regimen Started, Initiate Bowel Regimen: Yes, Screen for Nausea/ Vomitting: Yes Code Status: 01/22/17 22:10 Resuscitation Status: Active [RES] Routine Comment: Resuscitation Status: Full Code
[2017-01-29] MEDS: OLANZapine 5 MG TAB.RAPDIS PO SCH (21:08)
[2017-01-30 03:42] LABS: Basophils % 0.5 %; Eosinophils # 0.1 K/mcL (0.0-0.6); Eosinophils % 1.4 %; Hematocrit 35.4 % (37.5-50.1); Hemoglobin 11.1 g/dL (12.9-16.9); Immature Granulocytes % 0.3 % (0-4); Lymphocytes # 1.3 K/mcL (0.6-4.6); Lymphocytes % 19.9 %; Mean Corpuscular HGB Conc 31.4 g/dL (31.6-35.5); Mean Corpuscular Hemoglobin 29.4 pg (28.0-33.3); Mean Corpuscular Volume 93.7 fL (83.0-100.0); Mean Platelet Volume 11.9 fL (9.4-12.4); Monocytes # 0.5 K/mcL (0.0-1.3); Monocytes % 7.6 %; Neutrophils # 4.5 K/mcL (1.6-8.9); Platelet Count 191 K/mcL (140-400); Red Blood Count 3.78 M/mcL (4.19-5.50); Red Cell Distribution Width 15.5 % (11.5-14.5); Segmented Neutrophils % 70.3 %
[2017-01-30 03:54] LABS: BUN/Creatinine Ratio 26 (6-26); Blood Urea Nitrogen 23 mg/dL (8-26); Calcium 9.3 mg/dL (8.6-10.8); Carbon Dioxide 29 mEq/L (19-29); Chloride 105 mEq/L (98-109); Glucose 145 mg/dL (70-99); Osmolality,Calculated 304 (280-300); Potassium 3.1 mEq/L (3.5-4.5); Sodium 144 mEq/L (136-145); eGFR For African Americans > 60 (> 60); eGFR For Non-African Americans > 60 (> 60)
[2017-01-30] MEDS: Lacri-Lube 3.5 GM TUBE BOTH EYES SCH ×3 (04:14→10:54)
[2017-01-30] MEDS: Ipratropium/Albuterol Neb 3 ML IH SCH ×4 (04:24→22:06)
[2017-01-30] MEDS: Valproic Acid Oral Soln 250 MG/5 ML UDC GTUBE SCH ×4 (05:09→23:35)
[2017-01-30] MEDS: Pantoprazole 40 MG VIAL IVP SCH (05:09)
[2017-01-30] MEDS: Insulin LISPRO 300 UNITS/3 ML VIAL SQ SCH ×4 (05:27→17:29)
[2017-01-30] MEDS: FentaNYL (PF) 1,000 MCG in 0.9 % Sodium Chloride 80 ML IVC SCH ×2 (09:04→10:53)
[2017-01-30] MEDS: Chlorhexidine Rinse 15 ML MOUTHWASH MM SCH (09:08)
[2017-01-30] MEDS: Sennosides/Docusate Sodium TABLET PO SCH ×2 (09:08→20:31)
[2017-01-30] MEDS: APIXABAN 5 MG TABLET PO SCH ×2 (09:08→20:32)
[2017-01-30] MEDS: Bisacodyl 10 MG RECTAL SUPPOSITORY RC SCH (09:08)
[2017-01-30] MEDS: Aspirin 81 MG TAB.CHEW PO SCH (09:08)
[2017-01-30] MEDS: Finasteride 5 MG TABLET PO SCH (09:08)
--- NOTE | 2017-01-30 10:21 | Palliative Progress Note ---
Date of Encounter: 01/30/17 Time of Encounter: 09:30 - Assessment and plan (1) Dyspnea Current Visit: Yes Status: Acute Assessment and plan: Tolerating CPAP trial and possibly will be extubated today. Will monitor. If he does poorly and has respiratory failure, son desires comfort measures and will add medications for breathlessness if needed. Qualifiers: Dyspnea type: unspecified Qualified Code(s): R06.00 - Dyspnea, unspecified (2) Counseling regarding advanced care planning and goals of care Current Visit: Yes Status: Acute Assessment and plan: Meeting with pt sonKingsley (Phone # [phone]) , Dr. Boss, Primary nurse Elizabeth and myself re: goals of care . Dr. Boss updated son on clinical status, findings with lung cancer and pt ready for extubation soon. Discussed options of re-intubation and possibly trach if he does not do well. Son indicated that his father has "suffered enough" and does not want him re- intubated or detention vent support/trach. Code status changed to DNR/DNI. Once patient extubated, if he does not do well, son will likely transition to comfort care. Will continue to follow clinical course. (3) Aspiration pneumonia Current Visit: Yes Status: Acute Qualifiers: Aspiration pneumonia type: due to regurgitated food Laterality: unspecified laterality (4) Acute respiratory failure Current Visit: Yes Status: Acute Qualifiers: Respiratory failure complication: hypoxia Qualified Code(s): J96.01 - Acute respiratory failure with hypoxia (5) Mass of upper lobe of left lung Current Visit: Yes Status: Acute - Time Spent With Patient Total time spent is greater than 50% in coordination of care (as documented) at patient's floor/unit and/or counseling patient: - Subjective Interval history: Patient awake and alert. Follows commands. Currently doing well with breathing trial. Responded well to diuretic therapy. Still will some secretions but decreased. SonKingsley has arrived and is at bedside. Patient appears comfortable but does indicate he wants ET tube out. - Constitutional Vitals: Abnormal lab results RBC 3.78 M/mcL (4.19-5.50) L 01/30/17 03:31 Hgb 11.1 g/dL (12.9-16.9) L 01/30/17 03:31 Hct 35.4 % (37.5-50.1) L 01/30/17 03:31 MCHC 31.4 g/dL (31.6-35.5) L 01/30/17 03:31 RDW 15.5 % (11.5-14.5) H 01/30/17 03:31 Immature Plt Fraction 8.6 % (1.1-6.1) H 01/26/17 07:40 PT 12.6 Seconds (9.4-12.1) H 01/22/17 18:48 APTT 36.1 Seconds (26.0-36.0) H 01/22/17 18:48 ABG pCO2 54 mmHg (35-45) H 01/29/17 04:31 ABG pO2 51 mmHg (85-104) L 01/29/17 04:31 ABG HCO3 37.5 mEQ/L (21-27) H 01/29/17 04:31 ABG Total CO2 39.2 mEq/L (20-26) H 01/29/17 04:31 ABG O2 Saturation 87 % (95-98) L 01/29/17 04:31 ABG Base Excess 11.7 mEq/L (-2.0 to 3.0) H 01/29/17 04:31 Potassium 3.1 mEq/L (3.5-4.5) L 01/30/17 03:31 Glucose 145 mg/dL (70-99) H 01/30/17 03:31 POC Glucose 116 (58-89) H 01/30/17 05:18 Calculated Osmolality 304 (280-300) H 01/30/17 03:31 Lactic Acid 2.4 mmol/L (0.5-2.2) H 01/23/17 00:50 B-Natriuretic Peptide 124 pg/mL (0-100) H 01/22/17 18:48 Albumin 3.0 g/dL (3.5-5.0) L 01/23/17 00:50 Globulin 3.8 g/dL (2.4-3.5) H 01/23/17 00:50 Albumin/Globulin Ratio 0.8 (1.1-2.2) L 01/23/17 00:50 Fluid Appearance Cloudy (Clear) A 01/23/17 09:44 General appearance: Present: no acute distress - Respiratory Additional comments: Breath sounds course throughout anterior chest. Remains on vent - Cardiovascular Cardiovascular exam: Present: +S1, +S2 - GI/Abdominal GI/Abdominal exam: Present: hypoactive bowel sounds, soft - Additional comments: Mosley patent with yellow urine - Extremities Exam Extremities exam: Present: normal capillary refill, normal inspection - Neurological Exam Additional comments: Awake and follows simple commands. Unable to verbalize r/t ET tube - Skin Skin exam: Present: dry, warm Palliative Quality Palliative Quality: Screen for Code Status: Yes, Screen for Goals of Care: Yes, Screen for Pain: Yes, If Pain Regimen Started, Initiate Bowel Regimen: Yes, Screen for Nausea/Vomitting: Yes Code Status: 01/22/17 22:10 Resuscitation Status: Active [RES] Routine Comment: Resuscitation Status: Full Code 01/30/17 10:18 DNR [Resuscitation Status: Active] [RES] Routine Comment: Resuscitation Status: [id number] - Labs CBC & Chem 7: 01/30/17 03:31 01/30/17 03:31 Labs: Laboratory Results - last 24 hr 01/29/17 01/29/17 01/29/17 10:57 14:47 17:59 WBC RBC Hgb Hct MCV MCH MCHC RDW Plt Count MPV Immature Gran % Seg Neutrophils % Lymphocytes % Monocytes % Eosinophils % Basophils % Neutrophils # Lymphocytes # Monocytes # Eosinophils # Basophils # Sodium 144 Potassium 3.6 Chloride 104 Carbon Dioxide 33 H BUN 21 Creatinine 0.90 Est GFR ( Amer) > 60 Est GFR (Non-Af Amer) > 60 BUN/Creatinine Ratio 23 Glucose 106 H POC Glucose 107 H 112 H Calculated Osmolality 301 H Calcium 9.4 01/29/17 01/30/17 01/30/17 23:05 03:31 03:31 WBC 6.4 RBC 3.78 L Hgb 11.1 L Hct 35.4 L MCV 93.7 MCH 29.4 MCHC 31.4 L RDW 15.5 H Plt Count 191 MPV 11.9 Immature Gran % 0.3 Seg Neutrophils % 70.3 Lymphocytes % 19.9 Monocytes % 7.6 Eosinophils % 1.4 Basophils % 0.5 Neutrophils # 4.5 Lymphocytes # 1.3 Monocytes # 0.5 Eosinophils # 0.1 Basophils # 0.0 Sodium 144 Potassium 3.1 L Chloride 105 Carbon Dioxide 29 BUN 23 Creatinine 0.88 Est GFR ( Amer) > 60 Est GFR (Non-Af Amer) > 60 BUN/Creatinine Ratio 26 Glucose 145 H POC Glucose 103 H Calculated Osmolality 304 H Calcium 9.3 01/30/17 05:18 WBC RBC Hgb Hct MCV MCH MCHC RDW Plt Count MPV Immature Gran % Seg Neutrophils % Lymphocytes % Monocytes % Eosinophils % Basophils % Neutrophils # Lymphocytes # Monocytes # Eosinophils # Basophils # Sodium Potassium Chloride Carbon Dioxide BUN Creatinine Est GFR ( Amer) Est GFR (Non-Af Amer) BUN/Creatinine Ratio Glucose POC Glucose 116 H Calculated Osmolality Calcium - ABG Interpretation ABG results: ABG ABG pH 7.45 pH Units (7.32-7.45) 01/29/17 04:31 ABG pCO2 54 mmHg (35-45) H 01/29/17 04:31 ABG pO2 51 mmHg (85-104) L 01/29/17 04:31 ABG O2 Saturation 87 % (95-98) L 01/29/17 04:31 PT/INR, D-dimer PT 12.6 Seconds (9.4-12.1) H 01/22/17 18:48 Consult Discharge Plan - Plan [facility]errals: [facility] [Primary Care Provider] -
[2017-01-30] MEDS ORDERED: Furosemide 40 MG/4 ML VIAL IVP ONE (10:30)
--- NOTE | 2017-01-30 11:44 | Pulmonology Progress Note ---
Date of Encounter: 01/30/17 Time of Encounter: 10:00 Assessment and Plan (1) Acute respiratory failure Current Visit: Yes Status: Acute Initial cause of respiratory failure most likely related to aspiration event. However further complicated by subsequent volume overload. Effect of aspiration at this point seem to be resolved and volume overload and pulmonary edema improving following diuresis. Patient performed well on spontaneous breathing trial this morning. RSBI approximately 30-40, no tachycardia or hypertension, minimal anxiety. We will plan for continued diuresis prior to extubation attempt. We will also extubate patient to BiPAP for continued ventilatory support. Plan in case vaccination failure has been discussed with patient's son. Will not plan to reintubate in the event of recurrent respiratory failure. At that point we transition to comfort care. Qualifiers: Respiratory failure complication: hypoxia Qualified Code(s): J96.01 - Acute respiratory failure with hypoxia (2) Aspiration into lower respiratory tract Current Visit: Yes Status: Acute Initial cause of patient's respiratory failure. Bronchoscopy following initial intubation showed evidence of food material and lower respiratory tract. No evidence of aspiration pneumonia. Respiratory failure resolving plan for patient today. Qualifiers: Encounter type: initial encounter Qualified Code(s): T17.800A - Unspecified foreign body in other parts of respiratory tract causing asphyxiation, initial encounter (3) Chronic anticoagulation Current Visit: Yes Status: Acute History of atrial fibrillation. Patient currently taking apixaban. No evidence of abnormal bleeding. We will continue apixaban. (4) COPD (chronic obstructive pulmonary disease) Current Visit: Yes Status: Acute History of COPD. Patient currently receiving bronchodilators and inhaled corticosteroids. Not showing significant retention of CO2. We will continue with current treatment. Plan to extubate to BiPAP. Qualifiers: COPD type: unspecified COPD Qualified Code(s): J44.9 - Chronic obstructive pulmonary disease, unspecified (5) Mass of upper lobe of left lung Current Visit: Yes Status: Acute Endobronchial left upper lobe lesion biopsied during bronchoscopy following initial intubation. 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 Discussed pathology with patient's son. When patient extubated we will discuss finding with patient and discuss plan for further evaluation. (6) Goals of care, counseling/discussion Current Visit: Yes Status: Acute Had conversation with patient's son, who is power of ip attorney, and palliative care service. Son states that the patient would not wish to have long-term invasive life support procedures. Discussed plan for extubation today and options for management following extubation. Son states that if patient fails extubation today he would not wish to be reintubated and would not wish to undergo tracheostomy. Patient's CODE STATUS was changed to DNR/DNI. We will reevaluate patient following extubation and have further discussion on goals of care at that point. If patient has recurrent respiratory failure, will reassess patient's capacity for decision making and have further discussion on goals of care. Subjective Principal diagnosis: Aspiration of food bolus, acute respiratory failure Interval history: No acute events overnight. Patient received continued diuresis with that negative approximately 1200 mL in the past 24 hours. Patient tolerated diuresis well. On spontaneous breathing trial this morning and interactive and able to answer questions. Patient denies any new complaints and indicates desire to be extubated. Objective PUL Vital signs: Last Vital Signs Temp 98.9 F 01/30/17 07:20 Pulse 101 01/30/17 11:00 Resp 27 01/30/17 11:00 BP 135/89 01/30/17 11:00 Pulse Ox 94 01/30/17 11:00 General appearance: no acute distress, alert Eyes: nonicteric Effort: normal Auscultation: bilateral: clear Cardiovascular: regular rate and rhythm Gastrointestinal: normoactive bowel sounds, soft, non-tender Integumentary: normal Extremities: no cyanosis, no clubbing, pink and warm, edema (diffuse edema in all extremities) Musculoskeletal: no deformities Gait: other (could not be assessed due to intubation status) non-focal exam mood appropriate Ventilator Settings Ventilator Settings: Ventilator Settings, Last 8 Hours Ventilator Mode CPAP Ventilator Mode CPAP Ventilator Mode CPAP Ventilator Mode CPAP Ventilator Mode CPAP Ventilator Mode CPAP Ventilator Mode CPAP Ventilator Mode VC+ Ventilator Mode VC+ Ventilator Mode VC+ Ventilator Mode VC+ Ventilator Tidal Volume 500 Setting Ventilator Tidal Volume 500 Setting Ventilator Tidal Volume 500 Setting Ventilator Tidal Volume 500 Setting Ventilator Respiratory Rate 16 Setting Ventilator Respiratory Rate 16 Setting Ventilator Respiratory Rate 16 Setting Ventilator Respiratory Rate 16 Setting Actual Respiratory Rate 27 Actual Respiratory Rate 30 Actual Respiratory Rate 26 Actual Respiratory Rate 24 Actual Respiratory Rate 23 Actual Respiratory Rate 25 Actual Respiratory Rate 26 Actual Respiratory Rate 20 Actual Respiratory Rate 16 Actual Respiratory Rate 16 Actual Respiratory Rate 20 Positive End Expiratory 5 Pressure Positive End Expiratory 5 Pressure Positive End Expiratory 5 Pressure Positive End Expiratory 5 Pressure Positive End Expiratory 5 Pressure Positive End Expiratory 5 Pressure Positive End Expiratory 5 Pressure Positive End Expiratory 5 Pressure Positive End Expiratory 5 Pressure Positive End Expiratory 5 Pressure Positive End Expiratory 5 Pressure Peak Inspiratory Airway 16 Pressure Peak Inspiratory Airway 15 Pressure Peak Inspiratory Airway 17 Pressure Peak Inspiratory Airway 21 Pressure Peak Inspiratory Airway 28 Pressure Peak Inspiratory Airway 16 Pressure Results - Laboratory Findings CBC and BMP: 01/30/17 03:31 01/30/17 03:31 ABG ABG pH 7.45 pH Units (7.32-7.45) 01/29/17 04:31 ABG pCO2 54 mmHg (35-45) H 01/29/17 04:31 ABG pO2 51 mmHg (85-104) L 01/29/17 04:31 ABG O2 Saturation 87 % (95-98) L 01/29/17 04:31 PT/INR, D-dimer PT 12.6 Seconds (9.4-12.1) H 01/22/17 18:48 Abnormal lab findings: Abnormal lab results RBC 3.78 M/mcL (4.19-5.50) L 01/30/17 03:31 Hgb 11.1 g/dL (12.9-16.9) L 01/30/17 03:31 Hct 35.4 % (37.5-50.1) L 01/30/17 03:31 MCHC 31.4 g/dL (31.6-35.5) L 01/30/17 03:31 RDW 15.5 % (11.5-14.5) H 01/30/17 03:31 Immature Plt Fraction 8.6 % (1.1-6.1) H 01/26/17 07:40 PT 12.6 Seconds (9.4-12.1) H 01/22/17 18:48 APTT 36.1 Seconds (26.0-36.0) H 01/22/17 18:48 ABG pCO2 54 mmHg (35-45) H 01/29/17 04:31 ABG pO2 51 mmHg (85-104) L 01/29/17 04:31 ABG HCO3 37.5 mEQ/L (21-27) H 01/29/17 04:31 ABG Total CO2 39.2 mEq/L (20-26) H 01/29/17 04:31 ABG O2 Saturation 87 % (95-98) L 01/29/17 04:31 ABG Base Excess 11.7 mEq/L (-2.0 to 3.0) H 01/29/17 04:31 Potassium 3.1 mEq/L (3.5-4.5) L 01/30/17 03:31 Glucose 145 mg/dL (70-99) H 01/30/17 03:31 POC Glucose 115 (58-89) H 01/30/17 11:25 Calculated Osmolality 304 (280-300) H 01/30/17 03:31 Lactic Acid 2.4 mmol/L (0.5-2.2) H 01/23/17 00:50 B-Natriuretic Peptide 124 pg/mL (0-100) H 01/22/17 18:48 Albumin 3.0 g/dL (3.5-5.0) L 01/23/17 00:50 Globulin 3.8 g/dL (2.4-3.5) H 01/23/17 00:50 Albumin/Globulin Ratio 0.8 (1.1-2.2) L 01/23/17 00:50 Fluid Appearance Cloudy (Clear) A 01/23/17 09:44 - Clinical Findings Intake & Output: Intake & Output 01/29/17 01/30/17 01/30/17 23:59 07:59 15:59 Intake Total 358 / 358 351.7 / 351.7 60 / 60 Output Total 1300 / 1300 200 / 200 Balance -942 / -942 151.7 / 151.7 60 / 60 Weight 104.7 kg Consult Discharge Plan - Plan [facility]errals: [facility] [Primary Care Provider] - - Attending Attestation CORN DETASSELER: History of mental illness. Baseline mental status not entirely clear. The patient interactive now. Following extubation will reassess mental status and determine patient's capacity for decision-making. For now patient's son will serve as power of ip attorney and decision maker. Cardiovascular: History of A. fib managed systemic anticoagulation. Currently rate controlled. No acute issues. Pulmonary: Respiratory distress initially caused by aspiration event without evidence of pneumonia. Subsequently complicated by fluid overload. Has responded well to diuresis. We will extubate to BiPAP this morning. Nephrology: Tolerating diuresis well. No significant change in serum creatinine this morning. Contraction alkalosis remained stable. No Diamox today. We will continue diuresis today. GI: Currently on tube feeding tolerating well. We will hold tube feeding during time of extubation. Once patient is extubated we will perform bedside swallow and begin by mouth nutrition. ID: Admitted for aspiration with no signs of pneumonia. No acute issues. HO: No acute issues. Endocrine: Blood sugar elevated but at goal of less than 180 mg/dL. MS: No acute issues. Disposition: Patient remained in ICU. Total critical care time: 45 minutes.
[2017-01-30] MEDS: Albuterol 2.5 MG/3 ML NEBULIZER IH PRN ×2 (12:52→19:55)
[2017-01-30] MEDS: OLANZapine 5 MG TAB.RAPDIS PO SCH (20:32)
[2017-01-31 04:29] LABS: Basophils % 0.4 %; Eosinophils # 0.2 K/mcL (0.0-0.6); Eosinophils % 3.1 %; Hematocrit 37.3 % (37.5-50.1); Hemoglobin 11.6 g/dL (12.9-16.9); Immature Granulocytes % 0.2 % (0-4); Lymphocytes # 1.4 K/mcL (0.6-4.6); Lymphocytes % 26.2 %; Mean Corpuscular HGB Conc 31.1 g/dL (31.6-35.5); Mean Corpuscular Hemoglobin 28.9 pg (28.0-33.3); Mean Platelet Volume 11.7 fL (9.4-12.4); Monocytes # 0.5 K/mcL (0.0-1.3); Monocytes % 8.9 %; Neutrophils # 3.4 K/mcL (1.6-8.9); Platelet Count 177 K/mcL (140-400); Red Blood Count 4.01 M/mcL (4.19-5.50); Red Cell Distribution Width 15.1 % (11.5-14.5); Segmented Neutrophils % 61.2 %
[2017-01-31] MEDS: Ipratropium/Albuterol Neb 3 ML IH SCH ×4 (04:37→21:22)
[2017-01-31 04:46] LABS: BUN/Creatinine Ratio 27 (6-26); Blood Urea Nitrogen 22 mg/dL (8-26); Calcium 9.4 mg/dL (8.6-10.8); Carbon Dioxide 35 mEq/L (19-29); Chloride 99 mEq/L (98-109); Glucose 95 mg/dL (70-99); Osmolality,Calculated 299 (280-300); Potassium 2.9 mEq/L (3.5-4.5); Sodium 143 mEq/L (136-145); eGFR For African Americans > 60 (> 60); eGFR For Non-African Americans > 60 (> 60)
[2017-01-31] MEDS: Pantoprazole 40 MG VIAL IVP SCH (05:16)
[2017-01-31] MEDS: Valproic Acid Oral Soln 250 MG/5 ML UDC GTUBE SCH (05:16)
[2017-01-31] MEDS: Insulin LISPRO 300 UNITS/3 ML VIAL SQ SCH ×4 (05:53→23:26)
[2017-01-31] MEDS: APIXABAN 5 MG TABLET PO SCH ×2 (08:08→21:23)
[2017-01-31] MEDS: Bisacodyl 10 MG RECTAL SUPPOSITORY RC SCH (08:08)
[2017-01-31] MEDS: Aspirin 81 MG TAB.CHEW PO SCH (08:08)
[2017-01-31] MEDS: Finasteride 5 MG TABLET PO SCH (08:08)
[2017-01-31] MEDS: Sennosides/Docusate Sodium TABLET PO SCH ×2 (08:09→21:23)
[2017-01-31] MEDS ORDERED: Valproic Acid Oral Soln 250 MG/5 ML UDC PO SCH (12:00)
[2017-01-31] MEDS ORDERED: *HR* Dextrose 50 % in Water (Syg) 50 ML SYRINGE IVP PRN (12:02)
[2017-01-31] MEDS ORDERED: D5% in Water 1,000 ML IVC PRN (12:02)
[2017-01-31] MEDS ORDERED: Albuterol 2.5 MG/3 ML NEBULIZER IH PRN (12:02)
[2017-01-31] MEDS ORDERED: Dextrose Gel 15 GM PO PRN ×2 (12:02)
[2017-01-31] MEDS ORDERED: Nitroglycerin 0.4 MG TAB.SUBL SL PRN (12:02)
[2017-01-31] MEDS ORDERED: Nystatin POWDER 30 GM BOTTLE TP PRN (12:02)
--- NOTE | 2017-01-31 12:55 | Pulmonology Progress Note ---
Date of Encounter: 01/31/17 Time of Encounter: 09:15 Assessment and Plan (1) Acute respiratory failure Current Visit: Yes Status: Resolved Acute respiratory distress requiring intubation due to aspiration event. Subsequent, located by volume overload. Patient successfully extubated yesterday following several days of diuresis. No recurrence of respiratory symptoms overnight and tolerating supplemental oxygen well. Patient appropriate for disposition to internal medicine. Qualifiers: Respiratory failure complication: hypoxia Qualified Code(s): J96.01 - Acute respiratory failure with hypoxia (2) Aspiration into lower respiratory tract Current Visit: Yes Status: Acute Initial cause of patient's respiratory failure. Bronchoscopy following initial intubation showed evidence of food material and lower respiratory tract. No evidence of aspiration pneumonia. Patient was able to eat crumble blueberry muffin this morning, but recommended that he be fed by one to one sitter with a mechanical soft diet until swallow to be evaluated by speech pathology. Qualifiers: Encounter type: initial encounter Qualified Code(s): T17.800A - Unspecified foreign body in other parts of respiratory tract causing asphyxiation, initial encounter (3) Chronic anticoagulation Current Visit: Yes Status: Chronic History of atrial fibrillation. Patient currently taking apixaban. No evidence of abnormal bleeding. We will continue apixaban. (4) COPD (chronic obstructive pulmonary disease) Current Visit: Yes Status: Chronic History of COPD. Patient currently receiving bronchodilators and inhaled corticosteroids. Not showing significant retention of CO2. We will continue with current treatment. Plan to extubate to BiPAP. Qualifiers: COPD type: unspecified COPD Qualified Code(s): J44.9 - Chronic obstructive pulmonary disease, unspecified (5) Mass of upper lobe of left lung Current Visit: Yes Status: Acute Endobronchial left upper lobe lesion biopsied during bronchoscopy following initial intubation. 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 Discussed pathology with patient's son and patient. Patient does not yet seem to grasp the diagnosis. We will readdress today and recommend oncology consultation. However, doubt the patient will be good candidate for chemotherapy. (6) Goals of care, counseling/discussion Current Visit: Yes Status: Acute Patient remains DNR/DNI. Patient's power of insurance attorney is his adult son. Recommend he be primary point of contact for ongoing discussions regarding treatment and treatment options for left upper lobe lung malignancy. Subjective Principal diagnosis: Aspiration of food bolus, acute respiratory failure Interval history: Successfully extubated yesterday following several days of diuresis. No acute events overnight. No recurrence of respiratory distress or failure. Patient able to take by mouth and expressing desire for advance diet. No new complaints today. Objective PUL Vital signs: Last Vital Signs Temp 98.2 F 01/31/17 12:22 Pulse 108 01/31/17 12:00 Resp 20 01/31/17 12:00 BP 101/70 01/31/17 12:00 Pulse Ox 98 01/31/17 12:00 General appearance: no acute distress Effort: normal Auscultation: bilateral: rhonchi Cardiovascular: regular rate and rhythm Gastrointestinal: soft, non-tender Extremities: no cyanosis (Mild edema in all extremities), no clubbing, edema Musculoskeletal: no deformities Gait: other (Patient has not yet ambulated) normal mental status (Patient with baseline dementia) Results - Laboratory Findings CBC and BMP: 01/31/17 03:50 01/31/17 03:50 ABG ABG pH 7.45 pH Units (7.32-7.45) 01/29/17 04:31 ABG pCO2 54 mmHg (35-45) H 01/29/17 04:31 ABG pO2 51 mmHg (85-104) L 01/29/17 04:31 ABG O2 Saturation 87 % (95-98) L 01/29/17 04:31 PT/INR, D-dimer PT 12.6 Seconds (9.4-12.1) H 01/22/17 18:48 Abnormal lab findings: Abnormal lab results RBC 4.01 M/mcL (4.19-5.50) L 01/31/17 03:50 Hgb 11.6 g/dL (12.9-16.9) L 01/31/17 03:50 Hct 37.3 % (37.5-50.1) L 01/31/17 03:50 MCHC 31.1 g/dL (31.6-35.5) L 01/31/17 03:50 RDW 15.1 % (11.5-14.5) H 01/31/17 03:50 Immature Plt Fraction 8.6 % (1.1-6.1) H 01/26/17 07:40 PT 12.6 Seconds (9.4-12.1) H 01/22/17 18:48 APTT 36.1 Seconds (26.0-36.0) H 01/22/17 18:48 ABG pCO2 54 mmHg (35-45) H 01/29/17 04:31 ABG pO2 51 mmHg (85-104) L 01/29/17 04:31 ABG HCO3 37.5 mEQ/L (21-27) H 01/29/17 04:31 ABG Total CO2 39.2 mEq/L (20-26) H 01/29/17 04:31 ABG O2 Saturation 87 % (95-98) L 01/29/17 04:31 ABG Base Excess 11.7 mEq/L (-2.0 to 3.0) H 01/29/17 04:31 Potassium 2.9 mEq/L (3.5-4.5) L 01/31/17 03:50 Carbon Dioxide 35 mEq/L (19-29) H 01/31/17 03:50 BUN/Creatinine Ratio 27 (6-26) H 01/31/17 03:50 POC Glucose 101 (58-89) H 01/31/17 11:34 Lactic Acid 2.4 mmol/L (0.5-2.2) H 01/23/17 00:50 B-Natriuretic Peptide 124 pg/mL (0-100) H 01/22/17 18:48 Albumin 3.0 g/dL (3.5-5.0) L 01/23/17 00:50 Globulin 3.8 g/dL (2.4-3.5) H 01/23/17 00:50 Albumin/Globulin Ratio 0.8 (1.1-2.2) L 01/23/17 00:50 Fluid Appearance Cloudy (Clear) A 01/23/17 09:44 - Clinical Findings Intake & Output: Intake & Output 01/30/17 01/31/17 01/31/17 23:59 07:59 15:59 Intake Total 120 / 120 360 / 360 480 / 480 Output Total 300 / 300 250 / 250 75 / 75 Balance -180 / -180 110 / 110 405 / 405 Weight 98.2 kg Consult Discharge Plan - Plan Referrals: [facility] [Primary Care Provider] - - Attending Attestation TRAVERTINE INSTALLER: Baseline dementia the patient appears to be at his normal mental status. Cardiovascular: History of A. fib on systemic anticoagulation. Currently rate controlled. Continue coagulation. Pulmonary: Status post respiratory failure requiring intubation initially due to aspiration such chronic complicated by volume overload. Successfully extubated yesterday. Nephro: As tolerated aggressive diuresis well with no apparent kidney injury. Has had episodes of contract alkalosis with traumatic Diamox. GI: Patient expressing desire to eat however, aspiration was the cause of his initial respiratory failure. Was able to eat a crumbled muffin this morning recommend speech pathology consult for swallow evaluation. If patient not kept nothing by mouth, recommend he be fed by hand by one-on-one sitter. ID: No acute issues. HO: High-grade squamous dysplasia noted on biopsy of left upper lobe endobronchial lesion. Patient does not seem to understand diagnosis. Recommend oncology consultation. Endo: No acute issues. Disposition: Transfer to internal medicine. Total critical care time: 30 minutes.
[2017-01-31] MEDS: OLANZapine 5 MG TAB.RAPDIS PO SCH (21:23)
[2017-02-01] MEDS: Ipratropium/Albuterol Neb 3 ML IH SCH ×4 (03:54→22:15)
[2017-02-01 04:41] LABS: Basophils % 0.4 %; Eosinophils # 0.2 K/mcL (0.0-0.6); Hematocrit 36.8 % (37.5-50.1); Hemoglobin 11.8 g/dL (12.9-16.9); Immature Granulocytes % 0.5 % (0-4); Lymphocytes # 1.4 K/mcL (0.6-4.6); Lymphocytes % 24.4 %; Mean Corpuscular HGB Conc 32.1 g/dL (31.6-35.5); Mean Corpuscular Hemoglobin 29.6 pg (28.0-33.3); Mean Corpuscular Volume 92.2 fL (83.0-100.0); Mean Platelet Volume 11.5 fL (9.4-12.4); Monocytes # 0.5 K/mcL (0.0-1.3); Monocytes % 8.7 %; Neutrophils # 3.6 K/mcL (1.6-8.9); Platelet Count 166 K/mcL (140-400); Red Blood Count 3.99 M/mcL (4.19-5.50); Red Cell Distribution Width 15.2 % (11.5-14.5)
[2017-02-01 04:52] LABS: BUN/Creatinine Ratio 25 (6-26); Blood Urea Nitrogen 20 mg/dL (8-26); Calcium 9.2 mg/dL (8.6-10.8); Carbon Dioxide 28 mEq/L (19-29); Chloride 104 mEq/L (98-109); Glucose 105 mg/dL (70-99); Osmolality,Calculated 301 (280-300); Potassium 3.4 mEq/L (3.5-4.5); Sodium 144 mEq/L (136-145); eGFR For African Americans > 60 (> 60); eGFR For Non-African Americans > 60 (> 60)
[2017-02-01] MEDS: Insulin LISPRO 300 UNITS/3 ML VIAL SQ SCH ×3 (06:10→18:09)
[2017-02-01] MEDS ORDERED: Bisacodyl 10 MG RECTAL SUPPOSITORY RC SCH (09:00)
--- NOTE | 2017-02-01 09:27 | Palliative Progress Note ---
Date of Encounter: 02/01/17 Time of Encounter: 09:25 - Assessment and plan (1) Goals of care, counseling/discussion Current Visit: Yes Status: Acute Assessment and plan: Code status established as DNR/DNI following family discussion with palliative care and ICU team. Patient is oriented to person only and lacks ability to directly answer questions. 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 academic services professional following. Oncology consult recommended per ICU team. Prince is next of kin and primary decision maker. The palliative care team will continue to follow. (2) Dyspnea Current Visit: Yes Status: Acute Assessment and plan: Supplemental oxygen as needed. BiPAP PRN. Duonebs scheduled and albuterol as needed. Qualifiers: Dyspnea type: unspecified Qualified Code(s): R06.00 - Dyspnea, unspecified (3) Acute respiratory failure Current Visit: Yes Status: Resolved Qualifiers: Respiratory failure complication: hypoxia Qualified Code(s): J96.01 - Acute respiratory failure with hypoxia (4) Aspiration into lower respiratory tract Current Visit: Yes Status: Acute Qualifiers: Encounter type: initial encounter Qualified Code(s): T17.800A - Unspecified foreign body in other parts of respiratory tract causing asphyxiation, initial encounter - Time Spent With Patient Total time spent is greater than 50% in coordination of care (as documented) at patient's floor/unit and/or counseling patient: - Subjective Interval history: Mr. Pastrana is awake and participating in conversation, but remains pleasantly confused and unable to directly answer questions. He is eating meals with the assistance of staff and bowels are moving. - Constitutional Vitals: Abnormal lab results RBC 3.99 M/mcL (4.19-5.50) L 02/01/17 04:21 Hgb 11.8 g/dL (12.9-16.9) L 02/01/17 04:21 Hct 36.8 % (37.5-50.1) L 02/01/17 04:21 RDW 15.2 % (11.5-14.5) H 02/01/17 04:21 Immature Plt Fraction 8.6 % (1.1-6.1) H 01/26/17 07:40 PT 12.6 Seconds (9.4-12.1) H 01/22/17 18:48 APTT 36.1 Seconds (26.0-36.0) H 01/22/17 18:48 ABG pCO2 54 mmHg (35-45) H 01/29/17 04:31 ABG pO2 51 mmHg (85-104) L 01/29/17 04:31 ABG HCO3 37.5 mEQ/L (21-27) H 01/29/17 04:31 ABG Total CO2 39.2 mEq/L (20-26) H 01/29/17 04:31 ABG O2 Saturation 87 % (95-98) L 01/29/17 04:31 ABG Base Excess 11.7 mEq/L (-2.0 to 3.0) H 01/29/17 04:31 Potassium 3.4 mEq/L (3.5-4.5) L 02/01/17 04:21 Glucose 105 mg/dL (70-99) H 02/01/17 04:21 POC Glucose 132 (58-89) H 02/01/17 05:48 Calculated Osmolality 301 (280-300) H 02/01/17 04:21 Lactic Acid 2.4 mmol/L (0.5-2.2) H 01/23/17 00:50 B-Natriuretic Peptide 124 pg/mL (0-100) H 01/22/17 18:48 Albumin 3.0 g/dL (3.5-5.0) L 01/23/17 00:50 Globulin 3.8 g/dL (2.4-3.5) H 01/23/17 00:50 Albumin/Globulin Ratio 0.8 (1.1-2.2) L 01/23/17 00:50 Fluid Appearance Cloudy (Clear) A 01/23/17 09:44 General appearance: Present: cooperative, no acute distress Exam: 76 year old male patient, pleasantly confused, following commands, unable to directly answer questions. Speech garbled, moves extremities x4. - Eye Eye exam: Present: EOMI, PERRL - ENT ENT exam: Present: mucous membranes moist - Expanded ENT Exam Teeth exam: Present: edentulous - Respiratory Respiratory exam: Present: rhonchi. Absent: accessory muscle use, respiratory distress, wheezes, tachypnea - Cardiovascular Cardiovascular exam: Present: RRR, +S1, +S2. Absent: systolic murmur - GI/Abdominal GI/Abdominal exam: Present: normal bowel sounds, soft. Absent: firm, guarding, tenderness - Additional comments: lezama catheter intact - Extremities Exam Extremities exam: Present: normal inspection. Absent: pedal edema - Neurological Exam Neurological exam: Present: alert, no focal deficits, strengths equal and symetr throughout. Absent: oriented X3 (oriented to person) - Psychiatric Psychiatric exam: Absent: agitated, anxious - Skin Skin exam: Present: dry, warm. Absent: intact (please see wound care notes) Additional comments: dressings intact. Palliative Quality Palliative Quality: Screen for Code Status: Yes, Screen for Goals of Care: Yes, Screen for Pain: Yes, If Pain Regimen Started, Initiate Bowel Regimen: Yes, Screen for Nausea/Vomitting: Yes Code Status: 01/22/17 22:10 Resuscitation Status: Active [RES] Routine Comment: Resuscitation Status: Full Code 01/30/17 10:18 DNR [Resuscitation Status: Active] [RES] Routine Comment: Resuscitation Status: [id number] 01/30/17 10:59 CODE [Resuscitation Status: Active] [RES] Routine Comment: Resuscitation Status: [id number] - Labs CBC & Chem 7: 02/01/17 04:21 02/01/17 04:21 Labs: Laboratory Results - last 24 hr 01/31/17 01/31/17 01/31/17 11:34 17:42 23:24 WBC RBC Hgb Hct MCV MCH MCHC RDW Plt Count MPV Immature Gran % Seg Neutrophils % Lymphocytes % Monocytes % Eosinophils % Basophils % Neutrophils # Lymphocytes # Monocytes # Eosinophils # Basophils # Sodium Potassium Chloride Carbon Dioxide BUN Creatinine Est GFR ( Amer) Est GFR (Non-Af Amer) BUN/Creatinine Ratio Glucose POC Glucose 101 H 91 H 105 H Calculated Osmolality Calcium 02/01/17 02/01/17 02/01/17 04:21 04:21 05:48 WBC 5.7 RBC 3.99 L Hgb 11.8 L Hct 36.8 L MCV 92.2 MCH 29.6 MCHC 32.1 RDW 15.2 H Plt Count 166 MPV 11.5 Immature Gran % 0.5 Seg Neutrophils % 63.0 Lymphocytes % 24.4 Monocytes % 8.7 Eosinophils % 3.0 Basophils % 0.4 Neutrophils # 3.6 Lymphocytes # 1.4 Monocytes # 0.5 Eosinophils # 0.2 Basophils # 0.0 Sodium 144 Potassium 3.4 L Chloride 104 Carbon Dioxide 28 BUN 20 Creatinine 0.80 Est GFR ( Amer) > 60 Est GFR (Non-Af Amer) > 60 BUN/Creatinine Ratio 25 Glucose 105 H POC Glucose 132 H Calculated Osmolality 301 H Calcium 9.2 - ABG Interpretation ABG results: ABG ABG pH 7.45 pH Units (7.32-7.45) 01/29/17 04:31 ABG pCO2 54 mmHg (35-45) H 01/29/17 04:31 ABG pO2 51 mmHg (85-104) L 01/29/17 04:31 ABG O2 Saturation 87 % (95-98) L 01/29/17 04:31 PT/INR, D-dimer PT 12.6 Seconds (9.4-12.1) H 01/22/17 18:48 Consult Discharge Plan - Plan [facility]errals: [facility] [Primary Care Provider] -
--- NOTE | 2017-02-01 09:49 | Pulmonology Progress Note ---
Date of Encounter: 02/01/17 Time of Encounter: 08:20 Assessment and Plan (1) Lesion of lung Current Visit: Yes Status: Acute During bronchoscopy there was a lesion which showed dysplasia. However I doubt he will be candidate for any chemotherapy for now. Follow up will be recommended , such as CT as outpatient in about 3 months. Subjective Principal diagnosis: Aspiration of food bolus, acute respiratory failure Interval history: Patient denies any complaints. Objective PUL Vital signs: Last Vital Signs Temp 97.7 F 02/01/17 07:08 Pulse 97 02/01/17 07:08 Resp 18 02/01/17 07:08 BP 121/78 02/01/17 07:08 Pulse Ox 94 02/01/17 07:08 General appearance: no acute distress Eyes: nonicteric Neck: supple Effort: normal Auscultation: bilateral: diminished breath sounds (bases) Percussion: bilateral: not dull Cardiovascular: regular rate and rhythm Gastrointestinal: normoactive bowel sounds, non-distended Extremities: no cyanosis non-focal exam Results - Laboratory Findings CBC and BMP: 02/01/17 04:21 02/01/17 04:21 ABG ABG pH 7.45 pH Units (7.32-7.45) 01/29/17 04:31 ABG pCO2 54 mmHg (35-45) H 01/29/17 04:31 ABG pO2 51 mmHg (85-104) L 01/29/17 04:31 ABG O2 Saturation 87 % (95-98) L 01/29/17 04:31 PT/INR, D-dimer PT 12.6 Seconds (9.4-12.1) H 01/22/17 18:48 Abnormal lab findings: Abnormal lab results RBC 3.99 M/mcL (4.19-5.50) L 02/01/17 04:21 Hgb 11.8 g/dL (12.9-16.9) L 02/01/17 04:21 Hct 36.8 % (37.5-50.1) L 02/01/17 04:21 RDW 15.2 % (11.5-14.5) H 02/01/17 04:21 Immature Plt Fraction 8.6 % (1.1-6.1) H 01/26/17 07:40 PT 12.6 Seconds (9.4-12.1) H 01/22/17 18:48 APTT 36.1 Seconds (26.0-36.0) H 01/22/17 18:48 ABG pCO2 54 mmHg (35-45) H 01/29/17 04:31 ABG pO2 51 mmHg (85-104) L 01/29/17 04:31 ABG HCO3 37.5 mEQ/L (21-27) H 01/29/17 04:31 ABG Total CO2 39.2 mEq/L (20-26) H 01/29/17 04:31 ABG O2 Saturation 87 % (95-98) L 01/29/17 04:31 ABG Base Excess 11.7 mEq/L (-2.0 to 3.0) H 01/29/17 04:31 Potassium 3.4 mEq/L (3.5-4.5) L 02/01/17 04:21 Glucose 105 mg/dL (70-99) H 02/01/17 04:21 POC Glucose 132 (58-89) H 02/01/17 05:48 Calculated Osmolality 301 (280-300) H 02/01/17 04:21 Lactic Acid 2.4 mmol/L (0.5-2.2) H 01/23/17 00:50 B-Natriuretic Peptide 124 pg/mL (0-100) H 01/22/17 18:48 Albumin 3.0 g/dL (3.5-5.0) L 01/23/17 00:50 Globulin 3.8 g/dL (2.4-3.5) H 01/23/17 00:50 Albumin/Globulin Ratio 0.8 (1.1-2.2) L 01/23/17 00:50 Fluid Appearance Cloudy (Clear) A 01/23/17 09:44 - Clinical Findings Intake & Output: Intake & Output 01/31/17 02/01/17 02/01/17 23:59 07:59 15:59 Intake Total 480 / 480 120 / 120 250 / 250 Output Total 250 / 250 350 / 350 Balance 230 / 230 -230 / -230 250 / 250 Weight 106.396 kg Consult Discharge Plan - Plan [facility]errals: [facility] [Primary Care Provider] -
[2017-02-01] MEDS: Aspirin 81 MG TAB.CHEW PO SCH (10:08)
[2017-02-01] MEDS: Sennosides/Docusate Sodium TABLET PO SCH ×2 (10:08→21:14)
[2017-02-01] MEDS: Finasteride 5 MG TABLET PO SCH (10:09)
[2017-02-01] MEDS: APIXABAN 5 MG TABLET PO SCH ×2 (10:09→21:14)
[2017-02-01] MEDS ORDERED: Bisacodyl 10 MG RECTAL SUPPOSITORY RC PRN (12:28)
--- NOTE | 2017-02-01 17:04 | Internal Med Progress Note ---
Date of Encounter: 02/01/17 Time of Encounter: 17:02 - Assessment and plan (1) Acute respiratory failure Current Visit: Yes Status: Resolved Assessment and plan: secondary to aspiration of food bolus into his airway. Required mechanical ventilation and successfully extubated 01/30 after several days of diuresis. Today, he is tolerating 2L NC well. 01/23: bronchoscopy showed copious, mucopurulent secretions throughout the tracheobronchial tree, they were partially obstructing the airway. Bronchoalveolar lavage was performed. No signs of infection. Speech therapy consult, advanced soft textures and thin liquids. continue nebs, oxygen. awaiting placement in the CT center. Qualifiers: Respiratory failure complication: hypoxia Qualified Code(s): J96.01 - Acute respiratory failure with hypoxia (2) Aspiration into lower respiratory tract Current Visit: Yes Status: Acute Assessment and plan: plan as above. Qualifiers: Encounter type: initial encounter Qualified Code(s): T17.800A - Unspecified foreign body in other parts of respiratory tract causing asphyxiation, initial encounter (3) Atrial fibrillation Current Visit: Yes Status: Acute Assessment and plan: HR is adequate. continue metoprolol and eliquis. Qualifiers: Atrial fibrillation type: chronic Qualified Code(s): I48.2 - Chronic atrial fibrillation (4) Chronic anticoagulation Current Visit: Yes Status: Chronic Assessment and plan: eliquis. (5) COPD (chronic obstructive pulmonary disease) Current Visit: Yes Status: Chronic Assessment and plan: nebs. stable. Qualifiers: COPD type: unspecified COPD Qualified Code(s): J44.9 - Chronic obstructive pulmonary disease, unspecified (6) Mass of upper lobe of left lung Current Visit: Yes Status: Acute Assessment and plan: Endobronchial left upper lobe lesion. 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 Patient is a poor candidate for chemotherapy. He will have a CT chest in 3 months. (7) Goals of care, counseling/discussion Current Visit: Yes Status: Acute Assessment and plan: appreciate palliative input. - Subjective Interval history: patient is confused and unable to provide any detail for the ROS. no events overnight. - Constitutional Vitals: Temp Pulse Resp BP Pulse Ox 97.7 F 97 16 122/81 96 02/01/17 15:41 02/01/17 15:41 02/01/17 15:41 02/01/17 15:41 02/01/17 15:41 General appearance: Present: A&O X 0, pleasant, no acute distress - Respiratory Respiratory exam: Present: rhonchi - Cardiovascular Cardiovascular exam: Present: RRR - GI/Abdominal GI/Abdominal exam: Present: normal bowel sounds, soft. Absent: distended, tenderness - Extremities Exam Extremities exam: Absent: pedal edema - Neurological Exam Neurological exam: Present: alert. Absent: facial droop, speech deficit Internal Medicine: Result - Labs CBC & Chem 7: 02/01/17 04:21 02/01/17 04:21 Labs: Short CBC 02/01/17 Range/Units 04:21 WBC 5.7 (4.3-11.1) K/mcL Hgb 11.8 L (12.9-16.9) g/dL Hct 36.8 L (37.5-50.1) % Plt Count 166 (140-400) K/mcL Neutrophils # 3.6 (1.6-8.9) K/mcL BMP 02/01/17 04:21 Sodium 144 Potassium 3.4 L Chloride 104 Carbon Dioxide 28 BUN 20 Creatinine 0.80 Glucose 105 H Calcium 9.2 - ABG Interpretation ABG results: ABG ABG pH 7.45 pH Units (7.32-7.45) 01/29/17 04:31 ABG pCO2 54 mmHg (35-45) H 01/29/17 04:31 ABG pO2 51 mmHg (85-104) L 01/29/17 04:31 ABG O2 Saturation 87 % (95-98) L 01/29/17 04:31 PT/INR, D-dimer PT 12.6 Seconds (9.4-12.1) H 01/22/17 18:48 Consult Discharge Plan - Plan [facility]errals: [facility] [Primary Care Provider] -
[2017-02-01] MEDS: OLANZapine 5 MG TAB.RAPDIS PO SCH (21:14)
[2017-02-02] MEDS: Insulin LISPRO 300 UNITS/3 ML VIAL SQ SCH ×3 (00:14→11:42)
[2017-02-02] MEDS: Ipratropium/Albuterol Neb 3 ML IH SCH ×2 (03:59→09:51)
[2017-02-02 04:17] LABS: BUN/Creatinine Ratio 19 (6-26); Blood Urea Nitrogen 15 mg/dL (8-26); Calcium 9.4 mg/dL (8.6-10.8); Carbon Dioxide 32 mEq/L (19-29); Chloride 104 mEq/L (98-109); Glucose 111 mg/dL (70-99); Osmolality,Calculated 298 (280-300); Potassium 3.7 mEq/L (3.5-4.5); Sodium 143 mEq/L (136-145); eGFR For African Americans > 60 (> 60); eGFR For Non-African Americans > 60 (> 60)
[2017-02-02] MEDS: Sennosides/Docusate Sodium TABLET PO SCH (08:32)
[2017-02-02] MEDS: Aspirin 81 MG TAB.CHEW PO SCH (08:32)
[2017-02-02] MEDS: Finasteride 5 MG TABLET PO SCH (08:32)
[2017-02-02] MEDS: APIXABAN 5 MG TABLET PO SCH (08:33)
--- NOTE | 2017-02-02 09:23 | Palliative Progress Note ---
Date of Encounter: 02/02/17 Time of Encounter: 09:10 - Assessment and plan (1) Dyspnea Current Visit: Yes Status: Acute Assessment and plan: Improved - on 3L oxygen at present. Continues with aerosols, has completed course of antibiotics. Qualifiers: Dyspnea type: unspecified Qualified Code(s): R06.00 - Dyspnea, unspecified (2) Counseling regarding advanced care planning and goals of care Current Visit: Yes Status: Acute Assessment and plan: Patient will most likely be transitioned back to [facility] today. Code status remains DNR/Do not intubate as desired by son, Kingsley PastranaCLARA. I do think he is high risk for another aspiration event, and would recommend the Palliative team be consulted at the [facility]. Son was undecided re: follow up and if he would desire his father to have treatment for the OMNSTER squamous cell cancer. If they decline any type of treatment, and he would continue to decline, he would be appropriate for transition to hospice care if in alignment with POA goals. Patient has been found to lack capacity for health care decision from the [facility] medical facility. Will continue to follow while he remains inpatient. (3) Aspiration pneumonia Current Visit: Yes Status: Acute Qualifiers: Aspiration pneumonia type: due to regurgitated food Laterality: unspecified laterality (4) Acute respiratory failure Current Visit: Yes Status: Resolved Qualifiers: Respiratory failure complication: hypoxia Qualified Code(s): J96.01 - Acute respiratory failure with hypoxia (5) Mass of upper lobe of left lung Current Visit: Yes Status: Acute - Time Spent With Patient Total time spent is greater than 50% in coordination of care (as documented) at patient's floor/unit and/or counseling patient: 25 - 35 minutes - Subjective Interval history: Patient awake and alert. Pleasant. Answers some questions appropriately, but then mumbles and difficult to understand others. Asking for a cigarette. Appears in no distress, oxygen currently at 3LPM. Moist occasional cough noted. Denies any pain or discomfort. + large BM yesterday - Constitutional Vitals: Abnormal lab results RBC 3.99 M/mcL (4.19-5.50) L 02/01/17 04:21 Hgb 11.8 g/dL (12.9-16.9) L 02/01/17 04:21 Hct 36.8 % (37.5-50.1) L 02/01/17 04:21 RDW 15.2 % (11.5-14.5) H 02/01/17 04:21 Immature Plt Fraction 8.6 % (1.1-6.1) H 01/26/17 07:40 PT 12.6 Seconds (9.4-12.1) H 01/22/17 18:48 APTT 36.1 Seconds (26.0-36.0) H 01/22/17 18:48 ABG pCO2 54 mmHg (35-45) H 01/29/17 04:31 ABG pO2 51 mmHg (85-104) L 01/29/17 04:31 ABG HCO3 37.5 mEQ/L (21-27) H 01/29/17 04:31 ABG Total CO2 39.2 mEq/L (20-26) H 01/29/17 04:31 ABG O2 Saturation 87 % (95-98) L 01/29/17 04:31 ABG Base Excess 11.7 mEq/L (-2.0 to 3.0) H 01/29/17 04:31 Carbon Dioxide 32 mEq/L (19-29) H 02/02/17 03:35 Glucose 111 mg/dL (70-99) H 02/02/17 03:35 POC Glucose 106 (58-89) H 02/02/17 05:16 Lactic Acid 2.4 mmol/L (0.5-2.2) H 01/23/17 00:50 B-Natriuretic Peptide 124 pg/mL (0-100) H 01/22/17 18:48 Albumin 3.0 g/dL (3.5-5.0) L 01/23/17 00:50 Globulin 3.8 g/dL (2.4-3.5) H 01/23/17 00:50 Albumin/Globulin Ratio 0.8 (1.1-2.2) L 01/23/17 00:50 Fluid Appearance Cloudy (Clear) A 01/23/17 09:44 General appearance: Present: no acute distress - Respiratory Respiratory exam: Present: decreased breath sounds - Expanded Respiratory Exam Location: wheezes: Left, Right, Upper - Cardiovascular Cardiovascular exam: Present: +S1, +S2 - GI/Abdominal GI/Abdominal exam: Present: normal bowel sounds, soft - Extremities Exam Additional comments: Dressing to 2nd left toe dry and intact - Neurological Exam Neurological exam: Present: alert Additional comments: Oriented to name and place. requires re-orientation to time and situation. Follow very simple commands. Moves all extremities. Hand grasp equal bilaterally. Push/pull of lower extremities equal bilaterally - Psychiatric Psychiatric exam: Present: normal affect, normal mood - Skin Skin exam: Present: dry, warm Palliative Quality Palliative Quality: Screen for Code Status: Yes, Screen for Goals of Care: Yes, Screen for Pain: Yes, If Pain Regimen Started, Initiate Bowel Regimen: Yes, Screen for Nausea/Vomitting: Yes Code Status: 01/22/17 22:10 Resuscitation Status: Active [RES] Routine Comment: Resuscitation Status: Full Code 01/30/17 10:18 DNR [Resuscitation Status: Active] [RES] Routine Comment: Resuscitation Status: [id number] 01/30/17 10:59 CODE [Resuscitation Status: Active] [RES] Routine Comment: Resuscitation Status: [id number] - Labs CBC & Chem 7: 02/01/17 04:21 02/02/17 03:35 Labs: Laboratory Results - last 24 hr 02/01/17 02/01/17 02/02/17 11:35 17:20 00:10 Sodium Potassium Chloride Carbon Dioxide BUN Creatinine Est GFR ( Amer) Est GFR (Non-Af Amer) BUN/Creatinine Ratio Glucose POC Glucose 126 H 70 94 H Calculated Osmolality Calcium Magnesium 02/02/17 02/02/17 03:35 05:16 Sodium 143 Potassium 3.7 Chloride 104 Carbon Dioxide 32 H BUN 15 Creatinine 0.81 Est GFR ( Amer) > 60 Est GFR (Non-Af Amer) > 60 BUN/Creatinine Ratio 19 Glucose 111 H POC Glucose 106 H Calculated Osmolality 298 Calcium 9.4 Magnesium 2.0 - ABG Interpretation ABG results: ABG ABG pH 7.45 pH Units (7.32-7.45) 01/29/17 04:31 ABG pCO2 54 mmHg (35-45) H 01/29/17 04:31 ABG pO2 51 mmHg (85-104) L 01/29/17 04:31 ABG O2 Saturation 87 % (95-98) L 01/29/17 04:31 PT/INR, D-dimer PT 12.6 Seconds (9.4-12.1) H 01/22/17 18:48 Consult Discharge Plan - Plan Referrals: [facility] [Primary Care Provider] -
[2017-02-02 10:33] VITALS: BP 113/75
[2017-02-02] MEDS ORDERED: Furosemide 40 MG/4 ML VIAL IVP ONE (11:53)
--- NOTE | 2017-02-02 11:57 | Discharge Summary ---
Date of Encounter: 02/02/17 Time of Encounter: 11:45 - Discharge Diagnosis (1) Acute respiratory failure Priority: Primary Status: Acute Qualifiers: Respiratory failure complication: hypoxia Qualified Code(s): J96.01 - Acute respiratory failure with hypoxia (2) Aspiration into lower respiratory tract Priority: Primary Status: Acute Qualifiers: Encounter type: initial encounter Qualified Code(s): T17.800A - Unspecified foreign body in other parts of respiratory tract causing asphyxiation, initial encounter (3) Atrial fibrillation Priority: Secondary Status: Chronic Qualifiers: Atrial fibrillation type: chronic Qualified Code(s): I48.2 - Chronic atrial fibrillation (4) Chronic anticoagulation Priority: Secondary Status: Chronic (5) COPD (chronic obstructive pulmonary disease) Priority: Secondary Status: Chronic Qualifiers: COPD type: unspecified COPD Qualified Code(s): J44.9 - Chronic obstructive pulmonary disease, unspecified (6) Mass of upper lobe of left lung Priority: Primary Status: Acute (7) Goals of care, counseling/discussion Priority: Primary Status: Acute - Discharge Medications Home Medications: Apixaban [Eliquis] 5 mg PO BID 01/22/17 [History] Aspirin Enteric Coated [Aspirin EC] 81 mg PO DAILY 01/22/17 [History] Bisacodyl [Dulcolax] 10 mg RC DAILY PRN 01/22/17 [History] Divalproex Sodium [Depakote] 250 mg PO DAILY 01/22/17 [History] Finasteride [Proscar] 5 mg PO DAILY 01/22/17 [History] Furosemide [Lasix] 40 mg PO BID 01/22/17 [History] Guaifenesin [Tab Tussin] 400 mg PO TID PRN 01/22/17 [History] Ipratropium/Albuterol Neb [Duoneb] 3 ml IH Q4HR 01/22/17 [History] Mineral Oil/Petrolatum,White [Eucerin Creme] 1 appl TP BID PRN 01/22/17 [History ] Multivitamin with Minerals [One-A-Day Maximum Formula] 1 tab PO DAILY 01/22/17 [ History] Nitroglycerin [Nitrostat] 0.4 mg SL AD PRN 01/22/17 [History] Nystatin POWDER [Nystop] 1 appl TP Q4H PRN 01/22/17 [History] OLANZapine [Zyprexa] 5 mg PO HS 01/22/17 [History] Ondansetron HCl [Zofran] 4 mg PO Q6H PRN 01/22/17 [History] Polyvinyl Alcohol [Artificial Tears] 2 drop OP QID PRN 01/22/17 [History] Ranitidine HCl [Acid Lead Medical Technologist] 150 mg PO BID 01/22/17 [History] Ursodiol 300 mg PO BID 01/22/17 [History] Albuterol Neb [Proventil Neb] 2.5 mg IH Q2H PRN #0 inhsol 02/02/17 [Rx] Aspirin 81 mg PO DAILY tab.chew 02/02/17 [Rx] Sennosides/Docusate Sodium [Senna Plus] 2 each PO BID tablet 02/02/17 [Rx] Allergies/Adverse Reactions: Allergies No Known Allergies Allergy (Verified 01/22/17 18:54) Date of admission: 01/22/17 20:35 [facility] care physician: [facility] Consults: 01/22/17 22:50 Consult to Pulmonology [CONS] Routine Consulting Provider: Pulm Crit [facility] Reason for Consult: Acute respiratory failure Call Completed: No 01/25/17 11:32 Consult to Nutrition [CONS] Routine Comment: Consulting Provider: NUTRITION Reason for Dietary Consult: TF Start and Manage 01/29/17 13:59 Consult to Palliative Care [CONS] Routine Comment: Discussion with family of snf goals 01/30/17. Consulting Provider: Palliative Care [place] 02/01/17 11:02 Consult to Speech Therapy [CONS] Stat Comment: Evaluate, develop and implement POC Reason for Consult: Aspiration Pneum Call Completed: Yes - Patient Status Disposition: Transfer Other Condition: Critical Functional capacity at discharge: bed bound Overall status at discharge: patient is not back to baseline - Discharge Instructions Follow Up With: [facility] [Primary Care Provider] - - Diet and Activity Activity: wear oxygen at all times Diet: other (advanced soft diet chopped meat. to be fed one on one) Interval History: Patient is here unable to provide a review ofsystem. Hospital course: Mr. Pastrana is a 76 year old male with past medical history of COPD, CAD, chronic kidney disease stage III, atrial fibrillation on chronic consolidation with apixaban, hypertension, and diastolic heart failure. He is a resident in the [facility] facility and presented with the chief complaint of respiratory distress due to aspiration. [facility], patient was hypoxic and unstable despite nonrebreather mask and was intubated and transfer to our ICU. He was started on mechanical ventilation, and nebulizations. Patient underwent bronchoscopy on January 23 showing copies, mucopurulent secretions throughout the tracheobronchial tree that were partially obstructing the airway. Bronchoalveolar lavage was performed. No signs of infection. He was successfully extubated on January 30 after several days of diuresis. Patient continued to require high oxygen levels and BIPAP prn. Palliative service consulted and met with the family who agreed with DNR-CCA- DNI. PLAN: Transfer to [facility]. continue home dose furosemide. soft diet with 1 to 1 assistance. - Time Spent with Patient Total time spent providing and/or coordinating discharge services: - Constitutional Vitals: Temp Pulse Resp BP Pulse Ox 98.7 F 100 18 113/75 93 02/02/17 10:28 02/02/17 10:28 02/02/17 10:28 02/02/17 10:28 02/02/17 10:28 General appearance: Present: A&O X 0, pleasant, no acute distress. Absent: answers questions appropriately - Respiratory Respiratory exam: Present: decreased breath sounds, rhonchi - Cardiovascular Cardiovascular exam: Present: RRR - GI/Abdominal GI/Abdominal exam: Present: normal bowel sounds, soft. Absent: distended, tenderness - Extremities Exam Extremities exam: Absent: pedal edema - Neurological Exam Neurological exam: Present: alert, strengths equal and symetr throughout. Absent: facial droop, speech deficit
--- NOTE | 2017-02-02 11:59 | Physician Discharge Referral ---
ExtendedCare Referral Info Transfer To: [facility] Provider in Charge: catherine Provider in Charge after Transfer: PCP Institutional Level of Care: Skilled - Diagnosis (1) Acute respiratory failure Status: Resolved (2) Aspiration into lower respiratory tract Status: Acute (3) Atrial fibrillation Status: Chronic (4) Chronic anticoagulation Status: Chronic (5) COPD (chronic obstructive pulmonary disease) Status: Chronic (6) Mass of upper lobe of left lung Status: Acute (7) Goals of care, counseling/discussion Status: Acute - Transfer Medications Home Medications: Apixaban [Eliquis] 5 mg PO BID 01/22/17 [History] Aspirin Enteric Coated [Aspirin EC] 81 mg PO DAILY 01/22/17 [History] Bisacodyl [Dulcolax] 10 mg RC DAILY PRN 01/22/17 [History] Divalproex Sodium [Depakote] 250 mg PO DAILY 01/22/17 [History] Finasteride [Proscar] 5 mg PO DAILY 01/22/17 [History] Furosemide [Lasix] 40 mg PO BID 01/22/17 [History] Guaifenesin [Tab Tussin] 400 mg PO TID PRN 01/22/17 [History] Ipratropium/Albuterol Neb [Duoneb] 3 ml IH Q4HR 01/22/17 [History] Mineral Oil/Petrolatum,White [Eucerin Creme] 1 appl TP BID PRN 01/22/17 [History ] Multivitamin with Minerals [One-A-Day Maximum Formula] 1 tab PO DAILY 01/22/17 [ History] Nitroglycerin [Nitrostat] 0.4 mg SL AD PRN 01/22/17 [History] Nystatin POWDER [Nystop] 1 appl TP Q4H PRN 01/22/17 [History] OLANZapine [Zyprexa] 5 mg PO HS 01/22/17 [History] Ondansetron HCl [Zofran] 4 mg PO Q6H PRN 01/22/17 [History] Polyvinyl Alcohol [Artificial Tears] 2 drop OP QID PRN 01/22/17 [History] Ranitidine HCl [Acid [employer] Install[employer]] 150 mg PO BID 01/22/17 [History] Ursodiol 300 mg PO BID 01/22/17 [History] Albuterol Neb [Proventil Neb] 2.5 mg IH Q2H PRN #0 inhsol 02/02/17 [Rx] Aspirin 81 mg PO DAILY tab.chew 02/02/17 [Rx] Sennosides/Docusate Sodium [Senna Plus] 2 each PO BID tablet 02/02/17 [Rx] Allergies/Adverse Reactions: Allergies No Known Allergies Allergy (Verified 01/22/17 18:54) - Respiratory Orders Oxygen / L per min (10 L high flow nasal cannula), Other (BIPAP 09/22, FiO2 40% prn) Smoking Cessation: Smoking cessation has been advised. For more information, call the [place] Tobacco Quit Line at 3-942-VBAH-NOW. - Advance Directives Code Status: DNR-Arrest/Don't Intubate - Mobility Orders Bedrest - Rehabiliation Orders Rehab Potential: Poor - Diet Orders Mechanical Soft (advanced soft diet chopped meat. to be fed one on one) CERTIFICATION: I certify that the transfer of the above named patient to an Extended Care Facility is necessary for the continuing treatment of the diagnosis listed. The above information is true and accurate reflection of patient's current condition. Confidential - Redisclosure prohibited without a patient's written consent.
== END 2017-02-02 13:10 | DRG 166 ==
LOC: EMEROO 18:27 → ICNU 20:35 → SUATTDRO 20:35 → ICNU 21:08 → 3ANU 01-31 18:07
PROVIDERS: ADMIT Nurse Practitioner Acute Care; ATTEND Internal Medicine
PROC: ENDOBFB (2017-01-23 08:45)